=== PATIENT | female | born 1985 | race Caucasian/White ===

== ENCOUNTER → 2018-01-31 08:14 | Outpatient (CLI) | payer OTHER, SELFPAY ==
--- NOTE | 2018-01-31 08:20 | BI_ITS ---
MAMMOGRAPHY - BILATERAL DIAGNOSTIC REASON FOR EXAM: Female, 32 years old. Six-month history of a right upper quadrant breast pain. PERTINENT HISTORY: Non-contributory. TECHNIQUE: Digital bilateral breast irene (3D mammographic acquisition) in the CC and MLO projections. 2-D mediolateral oblique (MLO) and craniocaudad (CC) views of both breasts were obtained. CAD: Full Field Digital Mammography with Computer Added Detection was performed. COMPARISON: Comparison is made with prior examination dated November 13, 2013. FINDINGS: Breast Composition: There are scattered areas of fibroglandular density. There are no dominant masses or suspicious calcifications. The previously seen ill-defined density in the deep upper lateral aspect of the right breast is not seen at this time. No other significant abnormalities are identified. BI/DIAG MAMM W/CAD, BILAT IMPRESSION: Stable bilateral diagnostic mammogram. With the patient's history of a right breast pain, correlation with ultrasound of the upper outer quadrant of the right breast is recommended. ASSESSMENT CATEGORY: BIRADS Category 0: Incomplete. Need additional imaging evaluation. A letter regarding these results will be sent to the patient by the facility within 30 days. Approximately 10% of breast cancers are not detected by mammography. A normal mammogram should not delay biopsy of a clinically suspicious abnormality. Electronically Signed: Agapito Whitney MD at 9:24 EDT Tel [phone], Service support ,
--- NOTE | 2018-01-31 08:42 | US_ITS ---
STUDY: ULTRASOUND BREAST - RIGHT REASON FOR EXAM: Female, 32 years old. Pain in the right breast. TECHNIQUE: Axial and longitudinal images of the RIGHT breast were performed with a high resolution ultrasound transducer. COMPARISON: Comparison is made with prior ultrasound of the right breast dated December 02, 2014 and prior mammogram done earlier in the day. FINDINGS: RIGHT Breast: The upper outer quadrant of the right breast was examined by ultrasound. There is homogeneous fibroglandular tissue. No solid or cystic mass lesion is seen. US/Breast Limited Unilateral IMPRESSION: Unremarkable sonographic examination of the upper outer quadrant of the right breast. ASSESSMENT CATEGORY: BIRADS Category 1: Negative. A letter regarding these results will be sent to the patient by the facility within 30 days. Electronically Signed: Agapito Whitney MD at 10:21 EDT Tel [phone], Service support ,
== END ==
PROVIDERS: Family Provider Preventive Medicine Occupational Medicine; PCP Preventive Medicine Occupational Medicine; Visit Provider Obstetrics & Gynecology
DX: N64.4 Mastodynia (principal)
CPT/HCPCS: 76642; 77062; 77066; G0279

== ENCOUNTER 2018-10-20 16:36 | Emergency (ER) | payer OTHER, SELFPAY ==
[2018-10-20 16:37] VITALS: BP 176/99; PULSE 117; RESP 16; TEMP 37; O2SAT 97; BMI 50.1
--- NOTE | 2018-10-20 16:54 | CT_ITS ---
STUDY: CT ABDOMEN AND PELVIS WITH CONTRAST REASON FOR EXAM: Female, 33 years old. Left flank and lower quadrant pain RADIATION DOSAGE (If Supplied By Facility): CTDIvol = ( 18.73 ) mGy, DLP = ( 1433.68 ) mGycm TECHNIQUE: Transaxial images were obtained from the dome of the diaphragm to the symphysis pubis without oral contrast. 100ML IV Isovue 300 was administered. Sagittal and coronal images were reconstructed. Individualized dose optimization techniques were used for this CT. COMPARISON: None. FINDINGS: The visualized lung bases are unremarkable. The visualized portions of the heart are within normal limits. Liver is fatty infiltrated without mass or bile duct dilatation.. Gallbladder has been removed surgically. Mild splenomegaly measuring approximately 13 cm in length. Normal pancreas. Normal bilateral adrenal glands. Normal right kidney. Normal left kidney. Normal visualized stomach. Normal small intestine. Diverticular changes of the sigmoid colon in association with mild thickening of the gill and stranding in the fat consistent with acute diverticulitis. No evidence for peridiverticular abscess. The appendix is visualized and appears normal. Normal abdominal aorta. Normal inferior vena cava. Normal retroperitoneum. Normal urinary bladder. Left ovarian cyst measuring 4.1 x 4.6 cm Normal abdominal wall. Normal osseous structures. CT/Abdomen/Pelvis W IV Cont ONLY IMPRESSION: Findings consistent with acute diverticulitis of the sigmoid colon without evidence for peridiverticular abscess Incidental finding of left ovarian cyst measuring approximately 4.1 x 4.6 cm Nonspecific fatty infiltration of the liver and mild splenomegaly Electronically Signed: Rajiv Spence MD at 18:31 EDT , Service support ,
--- NOTE | 2018-10-20 16:56 | ED.VISSUMM ---
- ER Visit Summary Date of Service: 10/20/18 Chief Complaint: Diarrhea and left sided and lower quadrant crampy abdominal pain History of Present Illness: The patient is a 33 F past medical history of hypertension and prior cholecystectomy. For 2 days baby has had some intermittent diarrhea. About 2-3 episodes today. No melena. No fever. No dysuria. Has menstrual period 3 to 4 weeks ago. Does not believe she is . No vaginal bleeding or discharge. No abdominal trauma. States she has not had pain like this before. She awoke with it but not because of it this morning. Physical Examination: Young female no acute distress vital signs are stable afebrile. HEENT exam unremarkable. Moist weeks memories. Neck nontender no lymphadenopathy. Lungs clear to auscultation bilaterally. Heart regular rhythm rate about 110 no murmur. Chest wall nontender. Abdomen is soft. Nondistended. Normal bowel sounds. She is obese. She does have mild left-sided abdominal tenderness. There are no peritoneal signs. The epigastric region, right upper and right lower quadrants are completely nontender. There is no obvious hernias or masses. There is no obvious signs of obstruction. She does have bowel sounds. Patient is moving all 4 extremities. Her back is nontender. Neurologically she is awake and alert with no focal motor deficits. Test Results: CBC shows a white count 12.4. Hemoglobin 12. No bands. Electrolytes unremarkable normal creatinine and gap. UA negative. Serum test negative. CT abdomen pelvis with IV contrast only shows left sigmoid diverticulitis. Also a 4 cm left ovarian cyst. Otherwise no acute abnormality. Read by the radiologist and reviewed by me. I did go over all test results with the patient. Emergency Department Course and Treatment: Clinically patient's exam has only mild tenderness. Screening labs along with urinalysis and CT will be obtained with IV contrast. 1 L normal saline. Repeat exam she is doing well at 1842. We went over all of her test results. She will be given 1 dose of Cipro and p.o. Flagyl in the emergency department prior to discharge. Tylenol Motrin for pain at home. Treatment Plan: Cipro twice daily for 10 days. Flagyl 3 times daily for 10 days. Tylenol Motrin for pain. Follow-up with your doctor. Follow-up with your physical education aide for the left ovarian cyst. Disposition: Discharge Impression: Acute left-sided abdominal pain with diarrhea secondary to acute left sigmoid diverticulitis Incidental finding of left ovarian cyst 4 cm This note was generated with [employer] dictation software. It may contain incorrect words, spelling, and punctuation that were not noted in review of the chart prior to signing ED Disposition - Plan for ED Patient: Referrals: Bijan Chapin DO [Primary Care Provider] -
--- NOTE | 2018-10-20 16:59 | ED.DCSUM_ITS ---
- ER Visit Summary Date of Service: 10/20/18 Chief Complaint: Diarrhea and left sided and lower quadrant crampy abdominal pain History of Present Illness: The patient is a 33 F past medical history of hypertension and prior cholecystectomy. For 2 days baby has had some intermittent diarrhea. About 2-3 episodes today. No melena. No fever. No dysuria. Has menstrual period 3 to 4 weeks ago. Does not believe she is . No vaginal bleeding or discharge. No abdominal trauma. States she has not had pain like this before. She awoke with it but not because of it this morning. Physical Examination: Young female no acute distress vital signs are stable afebrile. HEENT exam unremarkable. Moist weeks memories. Neck nontender no lymphadenopathy. Lungs clear to auscultation bilaterally. Heart regular rhythm rate about 110 no murmur. Chest wall nontender. Abdomen is soft. Nondistended. Normal bowel sounds. She is obese. She does have mild left- sided abdominal tenderness. There are no peritoneal signs. The epigastric region, right upper and right lower quadrants are completely nontender. There is no obvious hernias or masses. There is no obvious signs of obstruction. She does have bowel sounds. Patient is moving all 4 extremities. Her back is nonte nder. Neurologically she is awake and alert with no focal motor deficits. Test Results: CBC shows a white count 12.4. Hemoglobin 12. No bands. Electrolytes unremarkable normal creatinine and gap. UA negative. Serum test negative. CT abdomen pelvis with IV contrast only shows left sigmoid diverticulitis. Also a 4 cm left ovarian cyst. Otherwise no acute abno rmality. Read by the radiologist and reviewed by me. I did go over all test results with the patient. Emergency Department Course and Treatment: Clinically patient's exam has only mild tenderness. Screening labs along with urinalysis and CT will be obtained with IV contrast. 1 L normal saline. Repeat exam she is doing well at 1842. We went over all of her test results. She will be given 1 dose of Cipro and p.o. Flagyl in the emergency department prior to discharge. Tylenol Motrin for pain at home. Treatment Plan: Cipro twice daily for 10 days. Flagyl 3 times daily for 10 days. Tylenol Motrin for pain. Follow-up with your doctor. Follow-up with your data security administrator for the left ovarian cyst. Disposition: Discharge Impression: Acute left-sided abdominal pain with diarrhea secondary to acute left sigmoid diverticulitis Incidental finding of left ovarian cyst 4 cm This note was generated with [employer] dictation software. It may contain incorrect words, spelling, and punctuation that were not noted in review of the chart prior to signing ED Disposition - Plan for ED Patient: Referrals: Bijan Chapin DO [Primary Care Provider] -
[2018-10-20 17:08] LABS: Mucous, Urine 0 SEEN /hpf (<or=2+)
[2018-10-20 17:16] LABS: Color, Urine Yellow (Yellow); Glucose, Dipstick Normal (Normal); Ketone-Dipstick Negative (Negative); Leukocyte Esterase-Dipstick Negative /ul (Negative); Nitrite-Dipstick Negative (Negative); Occult Blood-Urine 10 /ul (Negative); Protein-Dipstick Negative (Negative); Specific Gravity, Urine 1.015 (1.002-1.030); Urine Bilirubin Dipstick Negative (Negative); Urine Clarity Clear (Clear); Urine Urobilinogen Normal (Normal)
[2018-10-20 17:28] LABS: Absolute Lymphocyte Count 2.01 X10^3/ul (0.83-4.51); Absolute Neutrophil Count 9.3 X10^3/uL (2.0-7.7); Basophil# 0.03 X10^3/uL; Basophil% 0.2 % (0-1); Eosinophil# 0.14 X10^3/uL; Eosinophils% 1.1 % (0-5); Hematocrit 37.7 % (37-47); Hemoglobin 12.4 g/dl (12.0-15.0); Lymphocyte # 2.01 X10^3/ul (4.0); Lymphocyte % 16.2 % (19-41); Mean Corp Hgb Conc 32.9 g/gl (32-36); Mean Corpuscular Hgb 27.4 pg (27.0-32.0); Mean Corpuscular Volume 83.2 fL (81-99); Monocyte# 0.87 X10^3/uL; Neutrophil # 9.27 X10^3/uL (2.7-7.7); Neutrophil % 75.1 % (47-70); POSITIVE COUNT NO; POSITIVE DIFFERENTIAL NO; POSITIVE MORPHOLOGY NO; Platelet Count 277 K/mm3 (150-450); RBC Distribution Width CV 14.4 % (11.6-14.6); RBC Distribution Width SD 43.7 fl (35.1-43.9); Red Blood Count 4.53 M/mm3 (4.2-5.4); White Blood Count 12.4 K/mm3 (4.4-11.0)
[2018-10-20 17:29] LABS: Bacteria RARE /hpf (None Seen); Red Blood Cells-Urine 0-5 SEEN /hpf (0-5); Squamous Epithelial Cells - UA 5-10 SEEN /hpf (5-10); White Blood Cells 0-5 SEEN /hpf (0-5)
[2018-10-20 17:42] LABS: Anion Gap 5 (5-15); BUN 13 mg/dL (7-18); BUN/Creat Ratio 24.9 RATIO (10-20); Chloride 108 mmol/L (98-107); Creatinine, Serum 0.52 mg/dL (0.55-1.02); EST Glomerular Filtration Rate 142 mL/min (>60); Est Glom Filt Rate - Afr Amer 172 mL/min (>60); Estimated Creatinine Clearance 153.78 ml/min; Glucose 87 mg/dL (74-106); Potassium 3.6 mmol/L (3.5-5.1); Sodium Level 136 mmol/L (136-145)
[2018-10-20 17:56] LABS: Internal QC Validated? YES +Cl - CLEAR BKGD
[2018-10-20 17:57] LABS: Pregnancy, Serum, hCG Quali. NEGATIVE Negative
--- NOTE | 2018-10-20 18:58 | DCINST.ED_ITS ---
ED Disposition - Plan for ED Patient: Disposition: Home or Assisted Living Instructions: ED Diverticulitis Prescriptions: metroNIDAZOLE [Flagyl] 500 mg PO Q8H #30 tab Ciprofloxacin [Cipro] 500 mg PO BID #20 tab Referrals: Bijan Chapin DO [Primary Care Provider] - 1 Week Additional Instructions: Plenty of fluids and rest. You have diverticulitis of your sigmoid colon. That is an infection of the colon. Cipro 1 pill twice a day. Flagyl 1 pill 3 times a day. Until gone both for 10 days. Tylenol Motrin for pain. He also has an incidental finding of a 4 cm left ovarian cyst. You can follow- up with her administrative resident about that. At this time nothing specifically to do for that. Follow-up with your doctor next week to be reevaluated.
[2018-10-20 19:14] VITALS: RESP 18
[2018-10-20] MEDS: metroNIDAZOLE 500 MG Tablet PO (19:25)
[2018-10-20] MEDS: Ciprofloxacin 250 MG Tablet 500 MG PO (19:25)
[2018-10-20 19:26] VITALS: RESP 18
== END 2018-10-20 19:26 | disposition home or self-care (01) ==
PROVIDERS: Emergency Provider Emergency Medicine; Family Provider Preventive Medicine Occupational Medicine; PCP Preventive Medicine Occupational Medicine
DX: K57.32 Diverticulitis of large intestine without perforation or abscess without bleeding (principal); N83.202 Unspecified ovarian cyst, left side; E66.9 Obesity, unspecified; I10 Essential (primary) hypertension; Z90.49 Acquired absence of other specified parts of digestive tract
CPT/HCPCS: 36415; 74177; 80048; 81001; 84703; 85025; 99284; Q9967; A4216

== ENCOUNTER → 2019-06-26 15:56 | Outpatient (CLI) | payer OTHER, SELFPAY ==
[2019-06-26 16:52] LABS: Microalbumin,Random Urine 40.6 mg/L (NO RANGE EST.)
[2019-06-26 16:54] LABS: Anion Gap 5 (5-15); BUN 15 mg/dL (7-18); BUN/Creat Ratio 21.8 RATIO (10-20); Calcium,Total 9.4 mg/dL (8.5-10.1); Chloride 107 mmol/L (98-107); Creatinine, Serum 0.69 mg/dL (0.55-1.02); EST Glomerular Filtration Rate 103 mL/min (>60); Est Glom Filt Rate - Afr Amer 125 mL/min (>60); Glucose 83 mg/dL (74-106); Potassium 3.8 mmol/L (3.5-5.1); Sodium Level 138 mmol/L (136-145)
== END ==
PROVIDERS: PCP Preventive Medicine Occupational Medicine; Referring Provider Preventive Medicine Occupational Medicine; Visit Provider Preventive Medicine Occupational Medicine
DX: I10 Essential (primary) hypertension (principal)
CPT/HCPCS: 36415; 80048; 82043

== ENCOUNTER 2020-04-07 14:54 | Emergency (ER) | payer OTHER, SELFPAY ==
[2020-04-07 14:55] VITALS: BP 150/112; PULSE 128; RESP 16; TEMP 35.8; O2SAT 100; BMI 50.1
--- NOTE | 2020-04-07 15:14 | ED.DCSUM_ITS ---
History of Present Illness Chief Complaint: Abd Pain Informant: Patient Onset: Days - 3 days Context: Gradual Onset Timing: Waxes and wanes Current Severity: Mild Maximum Severity: Moderate Narrative: Patient presents with 3-day history of left lower quadrant pain. She had some mild diarrhea. She states symptoms feel similar to when she had diverticulitis in October of last year. She denies fever or chills. No urinary symptoms. - Past Medical History (1) Diverticulitis Status: Resolved (2) Hypertension Status: Chronic Past Medical History - Allergies and Home Meds Allergies/Adverse Reactions: Allergies hydrochlorothiazide Allergy (Verified 04/07/20 14:57) Unknown metoprolol Adverse Reaction (Verified 04/07/20 14:57) Other Primary Care Physician: Bijan Chapin DO [Primary Care Provider] - Prior records reviewed: Yes Lives: Spouse/ Significant Other Smoking Status: Never smoker Review of Systems General: Denies: Chills, Fever Eyes: Denies: Visual changes - bilaterally Cardiovascular: Denies: Chest pain Respiratory: Denies: Dyspnea, Cough Gastrointestinal: Reports: Abdominal pain, Diarrhea. Denies: Vomiting Musculoskeletal: Denies: Swelling, Extremity Pain Skin: Denies: Rash Hematologic: Denies: Easy bruising, Easy bleeding Allergy: Denies: Uticaria Physical Exam Vital Signs/Narrative: Vital Signs Temp Pulse Resp BP Pulse Ox 04/07/20 14:55 96.5 F L 128 H 16 150/112 H 100 Inital Vital Signs reviewed: Yes General: Well nourished, Well developed Head: Normocephalic ENT: Moist mucous membranes Neck: Supple Cardiovascular: Regular rate, Regular rhythm Respiratory: No distress, CTA bilaterally Abdomen: Soft, Tender - Mild tenderness in the left lower quadrant., Hypoactive bowel sounds. Negative for: Guarding, Rebound tenderness Skin: Normal color Neurological: Alert, Oriented x3 Psychological: Normal affect Diagnostic/Tx/Re-eval Impressions Abdomen/Pelvis CT 04/07/20 17:14 IMPRESSION: Findings consistent with mild acute diverticulitis of the sigmoid colon with no evidence for perforation or abscess. Electronically Signed: Romulo Mckinley MD at 17:44 EST , Service support , 04/07/20 17:14 Abdomen/Pelvis WITH Contrast [CT] Stat Laboratory Results 04/07/20 04/07/20 04/07/20 15:03 15:35 15:35 WBC 15.8 H RBC 4.50 Hgb 12.6 Hct 39.8 MCV 88.4 MCH 28.0 MCHC 31.7 L RDW Std Deviation 46.8 H RDW Coeff of Jj 14.6 Plt Count 309 MPV 11.0 Immature Gran % (Auto) 0.900 Neut % (Auto) 78.3 H Lymph % (Auto) 11.2 L Webster % (Auto) 8.6 Eos % (Auto) 0.4 Baso % (Auto) 0.6 Absolute Neuts (auto) 12.3 H Absolute Lymphs (auto) 1.77 Nucleated RBC % 0 Sodium 136 Potassium 3.7 Chloride 104 Carbon Dioxide 26.0 Anion Gap 6 BUN 6 L Creatinine 0.62 Estim Creat Clear Calc 127.76 Est GFR (MDRD) Af Amer 139 Est GFR (MDRD) Non-Af 115 BUN/Creatinine Ratio 9.6 L Glucose 96 Calcium 9.1 Serum , Qual Urine Color Yellow Urine Clarity Clear Urine pH 6.5 Ur Specific [place] 1.010 Urine Protein Negative Urine Glucose (UA) Normal Urine Ketones Negative Urine Occult Blood Negative Urine Nitrite Negative Urine Bilirubin Negative Urine Urobilinogen Normal Ur Leukocyte Esterase Negative Urine RBC 0 SEEN Urine WBC 0 SEEN Ur Squamous Epith Cells 0-5 SEEN Urine Bacteria 1+ Urine Mucus 0 SEEN 04/07/20 15:35 WBC RBC Hgb Hct MCV MCH MCHC RDW Std Deviation RDW Coeff of Jj Plt Count MPV Immature Gran % (Auto) Neut % (Auto) Lymph % (Auto) Webster % (Auto) Eos % (Auto) Baso % (Auto) Absolute Neuts (auto) Absolute Lymphs (auto) Nucleated RBC % Sodium Potassium Chloride Carbon Dioxide Anion Gap BUN Creatinine Estim Creat Clear Calc Est GFR (MDRD) Af Amer Est GFR (MDRD) Non-Af BUN/Creatinine Ratio Glucose Calcium Serum , Qual NEGATIVE Urine Color Urine Clarity Urine pH Ur Specific [place] Urine Protein Urine Glucose (UA) Urine Ketones Urine Occult Blood Urine Nitrite Urine Bilirubin Urine Urobilinogen Ur Leukocyte Esterase Urine RBC Urine WBC Ur Squamous Epith Cells Urine Bacteria Urine Mucus - Medical Decision Making Patient declined anything for pain while in the emergency room. Test results are discussed with her. We will treat her with a course of Augmentin for her diverticulitis. She is given return instructions. ED Disposition - Plan for ED Patient: Disposition: Home or Assisted Living Diagnosis: Diverticulitis Instructions: ED Diverticulitis Prescriptions: Amox/Clavulanate Tablet [Augmentin Tablet] 875 mg PO Q12H #20 tab Transmission Status: Pending to [id number] Referrals: Bijan Chapin DO [Primary Care Provider] - 1-2 Weeks
[2020-04-07 15:28] LABS: Color, Urine Yellow (Yellow); Glucose, Dipstick Normal (Normal); Ketone-Dipstick Negative (Negative); Leukocyte Esterase-Dipstick Negative /ul (Negative); Mucous, Urine 0 SEEN /hpf (<or=2+); Nitrite-Dipstick Negative (Negative); Occult Blood-Urine Negative /ul (Negative); Protein-Dipstick Negative (Negative); Red Blood Cells-Urine 0 SEEN /hpf (0-5); Urine Bilirubin Dipstick Negative (Negative); Urine Clarity Clear (Clear); Urine Urobilinogen Normal (Normal); Urine pH 6.5 (5.0 - 8.0); White Blood Cells 0 SEEN /hpf (0-5)
[2020-04-07 15:49] LABS: Absolute Lymphocyte Count 1.77 X10^3/uL (0.83-4.51); Absolute Neutrophil Count 12.3 X10^3/uL (2.0-7.7); Basophil# 0.09 X10^3/uL; Basophil% 0.6 % (0-1); Eosinophil# 0.06 X10^3/uL; Eosinophils% 0.4 % (0-5); Hematocrit 39.8 % (37-47); Hemoglobin 12.6 g/dL (12.0-15.0); Lymphocyte # 1.77 X10^3/ul (4.0); Lymphocyte % 11.2 % (19-41); Mean Corp Hgb Conc 31.7 g/dL (32-36); Mean Corpuscular Volume 88.4 fL (81-99); Monocyte# 1.36 X10^3/uL; Monocyte% 8.6 % (0-10); NRBC Flagged by Analyzer 0 % (0-5); Neutrophil # 12.33 X10^3/uL (2.7-7.7); Neutrophil % 78.3 % (47-70); Platelet Count 309 K/mm3 (150-450); RBC Distribution Width CV 14.6 % (11.6-14.6); RBC Distribution Width SD 46.8 fl (35.1-43.9); White Blood Count 15.8 K/mm3 (4.4-11.0)
[2020-04-07] MEDS: 0.9% Normal Saline 1,000 ML 150 ML IV (15:51)
[2020-04-07 15:52] LABS: Bacteria 1+ /hpf (None Seen); Squamous Epithelial Cells - UA 0-5 SEEN /hpf (5-10)
[2020-04-07 15:56] LABS: Internal QC Validated? YES +Cl - CLEAR BKGD; Pregnancy, Serum, hCG Quali. NEGATIVE Negative
[2020-04-07 16:02] LABS: Anion Gap 6 (5-15); BUN 6 mg/dL (7-18); BUN/Creat Ratio 9.6 RATIO (10-20); Calcium,Total 9.1 mg/dL (8.5-10.1); Chloride 104 mmol/L (98-107); Creatinine, Serum 0.62 mg/dL (0.55-1.02); EST Glomerular Filtration Rate 115 mL/min (>60); Est Glom Filt Rate - Afr Amer 139 mL/min (>60); Estimated Creatinine Clearance 127.76 ml/min; Glucose 96 mg/dL (74-106); Potassium 3.7 mmol/L (3.5-5.1); Sodium Level 136 mmol/L (136-145)
[2020-04-07 17:13] VITALS: BP 122/99; PULSE 103; RESP 18; O2SAT 99
--- NOTE | 2020-04-07 17:14 | CT_ITS ---
STUDY: CT ABDOMEN AND PELVIS WITH CONTRAST REASON FOR EXAM: Female, 34 years old. ABD PAIN WITH DIARRHEA SINCE TUESDAY. HX OF DIVERTICULITIS. NORIS RADIATION DOSAGE (If Supplied By Facility): CTDIvol = ( 18.68 ) mGy, DLP = ( 1384.02 ) mGycm TECHNIQUE: Transaxial images were obtained from the dome of the diaphragm to the symphysis pubis with oral contrast. Oral and amp; IV Gastrografin and amp; 100mL Isovue-300 was administered. Sagittal and coronal images were reconstructed. Individualized dose optimization techniques were used for this CT. COMPARISON: 10/20/2018. FINDINGS: The visualized lung bases are unremarkable. The visualized portions of the heart are within normal limits. There is decreased attenuation of the liver consistent with steatosis. There is hepatomegaly. There are surgical clips in the gallbladder fossa consistent with a prior cholecystectomy. Normal spleen. Normal pancreas. Normal bilateral adrenal glands. Normal right kidney. Normal left kidney. Normal visualized stomach. Normal small intestine. Normal caliber large bowel. Diverticulosis and thickened wall of the sigmoid colon with mild pericolonic fat stranding. Findings are consistent with mild acute diverticulitis. No evidence for perforation or abscess. The appendix is visualized and appears normal. Normal abdominal aorta. Normal inferior vena cava. Normal retroperitoneum. Normal urinary bladder. Normal visualized uterus. There is a small umbilical hernia containing fat. Normal osseous structures. CT/Abdomen/Pelvis WITH Contrast IMPRESSION: Findings consistent with mild acute diverticulitis of the sigmoid colon with no evidence for perforation or abscess. Electronically Signed: Romulo Mckinley MD at 17:44 EST , Service support ,
[2020-04-07] MEDS: Amox/Clavulanate 875 MG Tablet PO (18:06)
[2020-04-07 18:16] VITALS: BP 134/69; PULSE 72; RESP 16; O2SAT 98
== END 2020-04-07 18:17 | disposition home or self-care (01) ==
PROVIDERS: Emergency Provider Emergency Medicine; PCP Preventive Medicine Occupational Medicine
DX: K57.32 Diverticulitis of large intestine without perforation or abscess without bleeding (principal); I10 Essential (primary) hypertension; Z79.899 Other long term (current) drug therapy
CPT/HCPCS: 74177; 80048; 81001; 84703; 85025; 96360; 96361; 99282; J7030; Q9967

== ENCOUNTER → 2020-07-05 10:50 | Outpatient (CLI) | payer OTHER, SELFPAY ==
[2020-07-05 13:04] LABS: Anion Gap 8 (5-15); BUN 8 mg/dL (7-18); BUN/Creat Ratio 12.7 RATIO (10-20); Calcium,Total 9.3 mg/dL (8.5-10.1); Chloride 105 mmol/L (98-107); Creatinine, Serum 0.63 mg/dL (0.55-1.02); EST Glomerular Filtration Rate 114 mL/min (>60); Est Glom Filt Rate - Afr Amer 138 mL/min (>60); Glucose 81 mg/dL (74-106); Sodium Level 137 mmol/L (136-145)
[2020-07-05 14:13] LABS: Microalbumin,Random Urine 20.5 mg/L (NO RANGE EST.)
== END ==
PROVIDERS: PCP Preventive Medicine Occupational Medicine; Referring Provider Preventive Medicine Occupational Medicine; Visit Provider Preventive Medicine Occupational Medicine
DX: I10 Essential (primary) hypertension (principal)
CPT/HCPCS: 36415; 80048; 82043

== ENCOUNTER → 2020-12-04 07:46 | Outpatient (CLI) | payer OTHER, SELFPAY ==
[2020-12-04 08:47] LABS: Hematocrit 40.4 % (37-47); Hemoglobin 12.7 g/dL (12.0-15.0); Mean Corp Hgb Conc 31.4 g/dL (32-36); Mean Corpuscular Hgb 27.5 pg (27.0-32.0); Mean Corpuscular Volume 87.6 fL (81-99); Platelet Count 331 K/mm3 (150-450); RBC Distribution Width CV 13.6 % (11.6-14.6); RBC Distribution Width SD 43.4 fl (35.1-43.9); Red Blood Count 4.61 M/mm3 (4.2-5.4); White Blood Count 7.3 K/mm3 (4.4-11.0)
[2020-12-04 09:18] LABS: AST(SGOT) 22 U/L (15-37); Alanine Aminotransfer ALT/SGPT 38 U/L (13-56); Albumin, Serum 3.7 g/dL (3.2-5.0); Alkaline Phosphatase 100 U/L (45-117); Bilirubin, Direct 0.09 mg/dL (0.00-0.30); Globulin 4.2 g/dL (2.2-4.2); Lipase 81 U/L (73-393); Protein, Total 7.9 g/dL (6.4-8.2)
== END ==
PROVIDERS: PCP Preventive Medicine Occupational Medicine; Referring Provider Preventive Medicine Occupational Medicine; Visit Provider Preventive Medicine Occupational Medicine
DX: K21.9 Gastro-esophageal reflux disease without esophagitis (principal); R10.13 Epigastric pain; R10.12 Left upper quadrant pain
CPT/HCPCS: 36415; 80076; 83690; 85027

== ENCOUNTER → 2020-12-05 | Outpatient (CLI) | payer OTHER, SELFPAY ==
[2020-12-08 13:10] LABS: H. PYLORI STOOL AG Negative (Negative)
== END | disposition home or self-care (01) ==
LOC: LABSPEC 07:50
PROVIDERS: PCP Preventive Medicine Occupational Medicine; Referring Provider Preventive Medicine Occupational Medicine; Visit Provider Preventive Medicine Occupational Medicine
DX: K21.9 Gastro-esophageal reflux disease without esophagitis (principal); R10.12 Left upper quadrant pain

== ENCOUNTER → 2021-01-08 15:13 | Outpatient (CLI) | payer OTHER, SELFPAY ==
--- NOTE | 2021-01-08 15:15 | CT_ITS ---
STUDY: CT ABDOMEN WITH CONTRAST REASON FOR EXAM: Female, 35 years old. EPIGASTRIC PAIN RADIATION DOSAGE (If Supplied By Facility): CTDIvol = ( 28.46 ) mGy, DLP = ( 1105.57 ) mGycm TECHNIQUE: Transaxial images were obtained post I.V. administration of 100 mL Isovue-300, and with oral contrast. Sagittal and coronal images were reconstructed. Individualized dose optimization techniques were used for this CT. COMPARISON: 04/07/2020 FINDINGS: The visualized lung bases are unremarkable. The visualized portions of the heart are within normal limits. Normal liver. Normal gallbladder and extrahepatic biliary system. Normal spleen. Normal pancreas. Normal bilateral adrenal glands. Normal right kidney. Normal left kidney. Normal visualized stomach. Normal small intestine. There are multiple colonic diverticula consistent with diverticulosis. The appendix is visualized and appears normal. Normal abdominal aorta. Normal inferior vena cava. Normal retroperitoneum. There is a small umbilical hernia containing fat. Normal osseous structures. CT/Abdomen WITH IV Contrast IMPRESSION: 1. No acute inflammatory process or bowel obstruction. 2. Cholecystectomy. 3. Small fat-containing periumbilical hernia. Electronically Signed: Hasmukh Crouch MD ([place]) at 8:13 EDT , Service support ,
[2021-01-08 17:15] LABS: CREATININE FINGERSTICK 0.8 mg/dL (0.55-1.02); EGFR FINGERSTICK > 60.0000 mL/min (>60)
== END ==
PROVIDERS: PCP Preventive Medicine Occupational Medicine; Referring Provider Preventive Medicine Occupational Medicine; Visit Provider Preventive Medicine Occupational Medicine
DX: R10.13 Epigastric pain (principal)
CPT/HCPCS: 74160; Q9967

== ENCOUNTER 2021-02-16 06:31 | Day surgery (SDC) | payer OTHER, SELFPAY ==
[2021-02-16] VITALS (7 sets, daily range): BP systolic 118–160; BP diastolic 71–93; PULSE 79–111; RESP 16–18; TEMP 36.3–36.4; O2SAT 88–100; BMI 48.8
--- NOTE | 2021-02-16 | COLBX_PTH ---
PATIENT: AFIA LYNCH LOC: EN U#:[id number] AGE/SX: 35/F ROOM: RE02/16/[address]: Dr. Fortunato Foster DO : 1985 BED: DIS: 02/16/2021 SPEC #: [id number] RECD: 02/16/21 12:34 STATUS: AMANDA JAYNE #: [id number] NISHA: 02/16/21 00:[address]: Fortunato Foster DEPT: SURGICAL PATHOLOGY RECD BY: Elvis Damian ENTERED: 02/16/21 12:34 SP TYPE: COLON BX OTHR DR: Dr. Bijan Chapin DO Tissues: A - Duodenum, NOS B - Gastric mucous membrane C - Esophageal mucous membrane Procedures: Special Stain Group II Surgery Specimen Level IV Alcian Blue/PAS (control) HEADER OPER[place] [place] DIAGNOSIS: Diverticulitis, abdominal pain, dysphagia TISSUE SUBMITTED: A ? Duodenum biopsy, B ? Antrum biopsy for H. pylori and path, C ? Distal esophagus biopsy MICROSCOPIC DIAGNOSIS A. 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 B. Gastric antrum, biopsy: Mild chronic gastritis. See comment. C. Distal esophagus, biopsy: Gastroesophageal junctional mucosa with mild chronic inflammation. Focal goblet cell metaplasia present. No evidence of dysplasia. See comment. AM:jono 02/17/2021 COMMENT B. The results of immunohistochemistry for Helicobacter pylori will be reported separately ([id number]). C. Immunohistochemistry ([id number]) for P53 and Ki-67 will be performed and results will be reported separately. Alcian blue/PAS stain with matched control supports the above diagnosis. MICROSCOPIC DESCRIPTION Slides are reviewed. GROSS DESCRIPTION A - Received in fixative is one container labeled with the patient's name and designated duodenum biopsy. The specimen consists of multiple irregular fragments of light corbin soft tissue that in aggregate measure 0.7 x 0.5 x 0.1 cm. The specimen is totally submitted in one cassette. B - Received in fixative is one container labeled with the patient's name and designated antrum biopsy. The specimen consists of multiple irregular fragments of light corbin soft tissue that in aggregate measure 1 x 0.5 x 0.1 cm. The specimen is totally submitted in one cassette. C - Received in fixative is one container labeled with the patient's name and designated distal esophagus biopsy. The specimen consists of multiple irregular fragments of light corbin soft tissue that in aggregate measure 0.7 x 0.5 x 0.1 cm. The specimen is totally submitted in one cassette. / MOON:jono 02/16/21 TC:3 CPT: 36803 x3, [id number]
[2021-02-16 06:58] LABS: Internal QC Validated? YES +Cl - CLEAR BKGD; Pregnancy, Urine Negative Negative
[2021-02-16] MEDS: Lactated Ringers 1,000 ML 100 ML IV (07:07)
--- NOTE | 2021-02-16 07:30 | HP.PCM_ITS ---
History and Physical Date of Admission: 02/16/21 [facility] [id number] [place] [address] OFFICE VISITDate of Service: 01/23/21 MR#:[id number]:[id number]: AFIA LYNCH NRep #:[id number]:[id number] Provider:Fortunato Friend, DOAge/Sex: 35/F Location:[facility] [place].IStatus:Signed Intake Vital Signs 01/23/21 10:14 01/23/21 10:16 Height 5 ft 7 in Weight: 326 lb 8 oz BMI 50.1 51.1 Intake Visit Reasons: ULCER Chief Complaint: Abodminal symptoms as listed Is patient in pain?: No Allergies hydrochlorothiazide Allergy (Verified 01/23/21 10:24) Unknown metoprolol Adverse Reaction (Verified 01/23/21 10:24) Other Medications hydrocodone-acetaminophen 1 - 2 tab PO Q4H PRN PRN #12 tablet 05/03/14 [Rx Confirmed 10/20/18] ondansetron 4 mg PO Q8H PRN PRN #10 tab 05/03/14 [Rx Confirmed 10/20/18] ciprofloxacin HCl 500 mg PO BID #20 tab 10/20/18 [Rx] lisinopril 40 mg PO DAILY 10/20/18 [History Confirmed 01/23/21] lorazepam 1 mg PO BID PRN PRN 10/20/18 [History Confirmed 01/23/21] metronidazole 500 mg PO Q8H #30 tab 10/20/18 [Rx] amoxicillin-pot clavulanate 875 mg PO Q12H #20 tab 04/07/20 [Rx] famotidine 40 mg tablet 40 mg PO BID 01/23/21 [History Confirmed 01/23/21] sucralfate 1 gram tablet 1 g PO QACHS 01/23/21 [History Confirmed 01/23/21] Post menopausal: No Patient : No Nurse's Note: GI symptoms includes diarrhea (no blood or blackness noted), abd pain, bloating, heartburn, difficulty swallowing. Symptoms started this November and have improved with the famotidine and sucralfate. Difficulty swallowing: it feels luike something is caught in the back of her throat and occurs in the evening a couple times a week. PCP screened for H.Pylori (negative), Rx'd famotidine and sucralfate to take when symptoms flare. Has tried omeprazole in the past with little effect and caused abdominal discomfort and increased diarrhea. scan performed two weeks ago of abdomen and returned as normal. Has a history of diverticulitis and diverticulosis. Had a colonoscopy two years ago. Has concerns r/t mother having pancreatic cancer. [facility] Medical History (Updated 01/23/21 @ 11:[address] Bucio Friend, DO) Abdominal pain Social History Smoking Status: Never smoker HPI HPI Chief Complaint: Abodminal symptoms as listed Details: AFIA LYNCH, is a 35 F who presents to the office today for GI symptoms includes diarrhea (no blood or blackness noted), abd pain, bloating, heartburn, difficulty swallowing. Symptoms started this November and have improved with the famotidine and sucralfate. She does also admit on occasion she does have problems with difficulty swallowing: Primarily, it feels luike something is caught in the back of her throat and occurs in the evening a couple times a week. PCP screened for H.Pylori (negative), Rx'd famotidine and sucralfate to take when symptoms flare. Has tried omeprazole in the past with little effect and caused abdominal discomfort and increased diarrhea. CT scan performed two weeks ago of abdomen and returned as normal. Has a history of diverticulitis and diverticulosis. Had a colonoscopy two years ago. Has concerns r/t mother having pancreatic cancer. ROS Const Constitutional: Positive for fatigue Eyes Eyes: No change in vision ENT ENT: Positive for nasal congestion, difficulty swallowing and sore throat; No abnormal hearing, tongue swelling or throat swelling Resp Respiratory: No cough or shortness of breath Cardio Cardiology: No chest pain at rest, chest pain with exertion, shortness of breath or dyspnea on exertion Gastro GI: Positive for abdominal pain, bloating, diarrhea, heartburn and difficulty swallowing Genitourinary-Female: No difficulty urinating or burning urination Musc Musculoskeletal: Positive for back pain Skin Skin: No hair loss in leg, yellowing of the eye, itchy eyes, rash, skin ulcer or skin swelling Neuro Neurology: No abnormal hearing, abnormal movements, confusion, unsteady gait/balance or memory loss Psych Psychiatric: Positive for anxiety, No confusion, Positive for depression, No memory loss, Positive for hyperactivity and Positive for obsessions/compulsions Endo Endocrine: Positive for fatigue Aller/Imm Allergy/Immunologic: No itchy eyes, throat swelling or tongue swelling Jimbo/Lymp Hematologic/Lymphatic: No easy bleeding, easy bruising or enlarged lymph nodes Exam Const General: cooperative and comfortable Nutritional Appearance: average body habitus and well nourished [facility] Head: normal to inspection Ears: hearing grossly normal bilaterally Nose: external nose normal Face and sinus: normal facial exam Mouth: oral mucosae normal Throat: posterior oropharynx normal Eyes General: appearance normal, both eyes and all related structures Neck Neck: normal visual inspection Chest Chest palpation & inspection: normal inspection of the chest and normal palpation of entire chest wall Resp Effort & Inspection: normal respiratory effort Auscultation: Bilateral: Clear to Auscultation Cardio Palpation: normal PMI Rate: regular rate Rhythm: regular rhythm GI Inspection: normal to inspection Auscultation: normal bowel sounds Percussion: normal to percussion Palpation: no hepatosplenomegaly Skin General: no rashes or lesions noted Neuro General: patient alert Extrem General: normal to inspection Psych Affect: normal affect Quality Reporting Tobacco Screening ([facility] 138) Smoking Status: Never smoker Assessment and Plan Assessment and Plan (1) Diverticulitis: Status: Resolved Plan - Dr. Bucio Friend, DO: She has had two episodes of diverticulitis that she knows of. She did respond to antibiotic therapy. She has changed her diet and has cut out a lot of foods that were disagreeing with her. She does not eat any corn products. She does intermittently get constipated. I expressed to her that reason that she gets acute diverticulitis is when she would develop constipation. She has taken a digestive enzyme and a probiotic. I suggested to her that she start an aloe- based regimen. Aloe is a very good natural way that will not harm the colon to stimulate bowel movements. She would take 4-hour pills in the morning and four aloe pills in the evening if needed. (2) Abdominal pain: Status: Acute Plan - Dr. Bucio Friend, DO: She did respond to Carafate and famotidine based therapy. That concerns me for duodenal problems such as duodenitis or duodenal ulcer. Also she was on a PPI when she had her H. pylori test which can give you a false negative test. We will perform a CLOtest and biopsies of the stomach and proximal small bowel for confirmation. (3) Dysphagia: Status: Acute Plan - Dr. Bucio Friend, DO: While she undergoes EGD will evaluate the upper GI tract for eosinophilic disease, gastroesophageal disease, strictures, or rings or hiatal hernia. Coding Level of Care Code Off vis,new,level 4 Diagnoses Diverticulitis K57.92 Abdominal pain R10.9 Dysphagia R13.10 This is an updated note from an office visit. There are no changes since she was seen in office.
--- NOTE | 2021-02-16 07:30 | IMM_PTH ---
PATIENT: AFIA LYNCH LOC: EN U#:[id number] AGE/SX: 35/F ROOM: RE02/16/[address]: Dr. Fortunato Foster DO : 1985 BED: DIS: 02/16/2021 SPEC #: [id number] RECD: 02/16/21 13:30 STATUS: AMANDA REEnrique #: [id number] NISHA: 02/16/21 07:[address]: Fortunato Foster DEPT: IMMUNOHISTOCHEMISTRY RECD BY: Rachell Cano ENTERED: 02/16/21 13:31 SP TYPE: IMMUNO OTHR DR: Dr. Bijan Chapin DO Tissues: B - Stomach, NOS C - Esophageal mucous membrane Procedures: H Pylori (initial) P53 (initial) KI-67 (add) PHYSICIAN & INSTITUTION [place] [id number] SPECIMEN INFORMATION: Tissue Source: B ? Antrum biopsy, C ? Distal esophagus biopsy Clinical Info: Diverticulitis, abdominal pain, dysphagia Specimen Number: [id number] B & C CPT code: 68493 x2, 26086 METHODOLOGY: Deparaffinized sections of prefer/formalin-fixed tissue or PAP/DQ stained slides are incubated with monoclonal/polyclonal antibodies/oligonucleotide probes. Localization is made via biotin free immunoperoxidase method. Appropriate controls are performed and reacted as expected. Results on target cell population are indicated in the following table: RESULTS: ANTIBODY / CLONE RESULT Block B H Pylori (polyclonal) negative Block C P53 (DO-7) negative Ki-67 (30-9) negative These tests were developed and their performance characteristics determined by [facility]. They may not have been cleared or approved by the U.S. Food and Drug Administration. The FDA has determined that such clearance or approval is not necessary. The above immunohistochemical/dualISH markers are ordered and reviewed by the pathologist. INTERPRETATION: B. Antrum biopsy: Negative for Helicobacter pylori organisms. C. Distal esophagus, biopsy: Negative for dysplasia. AM:jono 02/18/2021
--- NOTE | 2021-02-16 07:54 | OP.EGD_ITS ---
Patient Name: Edna Wan Procedure Date: 02/16/2021 7:30 AM Date of : 1985 Age: 35 Procedure: Upper GI endoscopy Indications: Epigastric abdominal pain Providers: Fortunato Foster DO Medicines: Propofol per Anesthesia Patient Profile: This is a 35 year old female. Refer to note in patient chart for documentation of history and physical. Patient has symptoms of acute epigastric abdominal pain. The symptoms first began October. Complications: No immediate complications. Procedure: Pre-Anesthesia Assessment: - Prior to the procedure, a History and Physical was performed, and patient medications and allergies were reviewed. The patient is competent. The risks and benefits of the procedure and the sedation options and risks were discussed with the patient. All questions were answered and informed consent was obtained. Patient identification and proposed procedure were verified by the physician in the pre-procedure area. Mental Status Examination: alert and oriented. Airway Examination: normal oropharyngeal airway and neck mobility. Respiratory Examination: clear to auscultation. CV Examination: normal. Prophylactic Antibiotics: The patient does not require prophylactic antibiotics. Prior Anticoagulants: The patient has taken no previous anticoagulant or antiplatelet agents. ASA Grade Assessment: II - A patient with mild systemic disease. After reviewing the risks and benefits, the patient was deemed in satisfactory condition to undergo the procedure. The anesthesia plan was to use moderate sedation / analgesia (conscious sedation). Immediately prior to administration of medications, the patient was re-assessed for adequacy to receive sedatives. The heart rate, respiratory rate, oxygen saturations, blood pressure, adequacy of pulmonary ventilation, and response to care were monitored throughout the procedure. The physical status of the patient was re-assessed after the procedure. After obtaining informed consent, the endoscope was passed under direct vision. Throughout the procedure, the patient's blood pressure, pulse, and oxygen saturations were monitored continuously. The Endoscope was introduced through the mouth, and advanced to the second part of duodenum. The upper GI endoscopy was accomplished without difficulty. The patient tolerated the procedure well. Moderate Sedation: Moderate (conscious) sedation was administered by the endoscopy nurse and supervised by the endoscopist. The following parameters were monitored: oxygen saturation, heart rate, blood pressure, and response to care. Total physician intraservice time was 15 minutes. Scope In: 7:42:31 AM Scope Out: 7:48:56 AM Total Procedure Duration Time 0 hours 6 minutes 25 seconds Findings: LA Grade A (one or more mucosal breaks less than 5 mm, not extending between tops of 2 mucosal folds) esophagitis with no bleeding was found 34 to 35 cm from the incisors. Biopsies were taken with a cold forceps for histology. Verification of patient identification for the specimen was done. Estimated blood loss was minimal. Patchy moderately erythematous mucosa without bleeding was found in the stomach. Biopsies were taken with a cold forceps for histology. Verification of patient identification for the specimen was done. Estimated blood loss was minimal. A small hiatal hernia was present. Scattered moderate inflammation characterized by erosions was found in the first portion of the duodenum. Biopsies were taken with a cold forceps for histology. Verification of patient identification for the specimen was done. Estimated blood loss was minimal. Impression: - LA Grade A reflux esophagitis. Biopsied. - Erythematous mucosa in the stomach. Biopsied. - Small hiatal hernia. - Duodenitis. Biopsied. Recommendation: - Discharge patient to home. - Resume previous diet. - Continue present medications. - Await pathology results. - Repeat upper endoscopy in 1 year for surveillance. - Return to GI office in 1 week. Procedure Code(s): --- Professional --- 94176, Esophagogastroduodenoscopy, flexible, transoral; with biopsy, single or multiple G0500, Moderate sedation services provided by the same physician or other qualified health daycare manager performing a gastrointestinal endoscopic service that sedation supports, requiring the presence of an independent trained observer to assist in the monitoring of the patient's level of consciousness and physiological status; initial 15 minutes of intra-service time; patient age 5 years or older (additional time may be reported with 76307, as appropriate) CPT copyright 2017 [employer]. All rights reserved. The codes documented in this report are preliminary and upon mig welder review may be revised to meet current compliance requirements. Fortunato Foster DO 02/16/2021 7:53:56 AM This report has been signed electronically. Number of Addenda: 1 Note Initiated On: 02/16/2021 7:30 AM Addendum Number: 1 Addendum Date: 01/07/2022 4:27:58 PM MAC was used instead of moderate sedation for this patient. Fortunato Foster DO 01/07/2022 4:28:10 PM This report has been signed electronically.
--- NOTE | 2021-02-16 07:55 | OP.CCLET_ITS ---
01/07/2022 Bijan Chapin [address] [place] [address] Re : Upper GI endoscopy procedure for Edna Wan Dear Dr. Chapin This procedure was performed on Tuesday, February 16, 2021. My impressions and recommendations are as follows: Impressions : - LA Grade A reflux esophagitis. Biopsied. - Erythematous mucosa in the stomach. Biopsied. - Small hiatal hernia. - Duodenitis. Biopsied. Recommendations : - Discharge patient to home. - Resume previous diet. - Continue present medications. - Await pathology results. - Repeat upper endoscopy in 1 year for surveillance. - Return to GI office in 1 week. My findings are described in the full procedure note, which is enclosed. If I can be of further assistance, please feel free to contact me at . Sincerely, Fortunato Foster, 02/16/2021 7:53:56 AM This report has been signed electronically.
== END 2021-02-16 08:36 ==
LOC: EN 06:32 → AC 06:33
PROVIDERS: Anesthesiology; PCP Preventive Medicine Occupational Medicine; Referring Provider Preventive Medicine Occupational Medicine; Visit Provider Internal Medicine Gastroenterology
PROC: 0DJ08ZZ Inspection of Upper Intestinal Tract, Via Natural or Artificial Opening Endoscopic (ICD-10-PCS; CPT 43235; principal; 2021-02-16 07:25)
DX: K29.50 Unspecified chronic gastritis without bleeding (principal); K22.70 Barrett's esophagus without dysplasia; K21.00 Gastro-esophageal reflux disease with esophagitis, without bleeding; K29.80 Duodenitis without bleeding; K44.9 Diaphragmatic hernia without obstruction or gangrene; I10 Essential (primary) hypertension; F41.9 Anxiety disorder, unspecified; F32.A Depression, unspecified; G43.909 Migraine, unspecified, not intractable, without status migrainosus; Z87.19 Personal history of other diseases of the digestive system; Z79.899 Other long term (current) drug therapy
CPT/HCPCS: 43239; 81025; 88305; 88313; 88341; 88342; J7120; J2405

== ENCOUNTER 2021-03-29 20:35 | Emergency (ER) | payer OTHER, SELFPAY ==
[2021-03-29 20:36] VITALS: BP 150/91; PULSE 105; RESP 18; TEMP 36.2; O2SAT 99; BMI 48.3
--- NOTE | 2021-03-29 21:07 | CT_ITS ---
STUDY: CT ABDOMEN AND PELVIS WITHOUT CONTRAST REASON FOR EXAM: Female, 35 years old. Flank pain RADIATION DOSAGE (If Supplied By Facility): CTDIvol = ( 22.25 ) mGy, DLP = ( 1256.47 ) mGycm TECHNIQUE: Transaxial images were obtained from the dome of the diaphragm to the symphysis pubis without oral contrast, and without intravenous contrast. Sagittal and coronal images were reconstructed. Individualized dose optimization techniques were used for this CT. COMPARISON: 01/08/2021 FINDINGS: The visualized lung bases are unremarkable. The visualized portions of the heart are within normal limits. Normal liver. There are surgical clips in the gallbladder fossa consistent with a prior cholecystectomy. Normal spleen. Normal pancreas. Normal bilateral adrenal glands. Normal right kidney. Normal left kidney. Normal visualized stomach. Normal small intestine. Scattered sigmoid diverticulosis, no CT evidence of acute diverticulitis. The appendix is visualized and appears normal. Findings seen on coronal reconstructed image 63 Normal abdominal aorta. Normal inferior vena cava. Normal retroperitoneum. Normal urinary bladder. Normal visualized uterus. Normal abdominal wall. Normal osseous structures. CT/Abdomen/Pelvis without Cont IMPRESSION: No suspicious solid organ abnormality Scattered sigmoid diverticulosis, no CT evidence of acute diverticulitis No free intraperitoneal fluid, air, or suspicious adenopathy Electronically Signed: Raoul Ventura MD at 22:28 EST , Service support ,
--- NOTE | 2021-03-29 21:15 | EX.ED.DYSGE1 ---
HPI History of Present Illness Chief Complaint: Abd Pain Narrative Narrative: Patient presents to the emergency department with left lower quadrant abdominal pain for the past 2 hours. It is quite intense. She does have a history of diverticulitis. She has no back pain no diarrhea or constipation. She has no dysuria. She is denying . She has no vaginal bleeding or discharge. [facility] Medical History Abdominal pain Anxiety Depression Gastric reflux History of diverticulitis Hypertension Migraine headache Non-smoker Wears glasses Home Medications lisinopril 40 mg PO DAILY 10/20/18 [History Last Taken 02/16/21] lorazepam 1 mg PO BID PRN PRN 10/20/18 [History Last Taken Unknown] famotidine 40 mg tablet 40 mg PO PRN PRN 01/23/21 [History Last Taken Unknown] sucralfate 1 gram tablet 1 g PO QACHS PRN 01/23/21 [History Last Taken Unknown] pantoprazole 20 mg tablet,delayed release See Rx Instructions .ROUTE .COMPLEX #30 tab 03/18/21 [Rx Last Taken Unknown] dicyclomine 20 mg PO BID #10 tab 03/29/21 [Rx Last Taken Unknown] Allergy/AdvReac Type Severity Reaction Status Date / Time hydrochlorothiazide Allergy Unknown Verified 03/29/21 20:40 metoprolol AdvReac Other Verified 03/29/21 20:40 Surgical History History of tonsillectomy and adenoidectomy Hx laparoscopic cholecystectomy Social History Smoking Status: Never smoker ROS ROS ED ROS Narrative Social history: Noncontributory Review of systems: All systems negative except as indicated General: No fever Eyes: No visual changes ENT: No upper airway congestion, normal voice Neck: No neck pain Cardiovascular: No chest pain Respiratory: No shortness of breath or cough Gastrointestinal: Left lower abdominal pain as in HPI Genitourinary: No dysuria Musculoskeletal: Denies myalgias no difficulty with ambulation Skin: No rash Neurological: No memory loss, confusion or any focal weakness Psych: No recent behavioral changes Hematologic: No easy bleeding or easy bruising EXAM Physical Exam Narrative Exam Narrative: Physical exam General: Patient appears uncomfortable. Head: Normocephalic, Atraumatic Eyes: Conjunctiva not pale ENT: Moist mucous membranes Neck: Supple, Nontender, No lymphadenopathy Cardiovascular: Regular rate, Regular rhythm Respiratory: No distress, CTA bilaterally Abdomen: Soft, there is left lower quadrant abdominal pain without guarding or rebound. No right-sided abdominal pain. No CVA pain. Back: Nontender, Normal Inspection. Negative for: CVA tenderness Extremities: Nontender, No edema Skin: Normal color, No rash Neurological: Alert, Normal Strength, Normal Sensation Psychological: Normal affect Const Vital Signs: 03/29/21 20:36 Temperature 97.1 F L Temperature Source Temporal Pulse Rate 105 H Respiratory Rate 18 Blood Pressure 150/91 H Blood Pressure Mean 110 Pulse Ox 99 Oxygen Delivery Method Room Air MDM MDM MDM Narrative Medical decision making narrative: Patient has an unremarkable work-up. She likely has some spasm. There is no evidence of kidney stone or diverticulitis she does not have a UTI she appears well she improved I will discharge in stable condition with Bentyl. Lab Data Labs: Laboratory Results - last 24 hr 03/29/21 03/29/21 03/29/21 21:20 21:20 21:40 WBC 9.4 RBC 4.31 Hgb 12.3 Hct 36.8 L MCV 85.4 MCH 28.5 MCHC 33.4 RDW Std Deviation 42.9 RDW Coeff of Jj 13.8 Plt Count 285 MPV 11.0 Immature Gran % (Auto) 0.500 Neut % (Auto) 71.0 H Lymph % (Auto) 18.5 L [place] % (Auto) 8.5 Eos % (Auto) 1.1 Baso % (Auto) 0.4 Absolute Neuts (auto) 6.7 Absolute Lymphs (auto) 1.73 Nucleated RBC % 0 Sodium 138 Potassium 3.7 Chloride 106 Carbon Dioxide 26.0 Anion Gap 6 BUN 11 Creatinine 0.66 Estim Creat Clear Calc 118.87 Est GFR (MDRD) Af Amer 130 Est GFR (MDRD) Non-Af 107 BUN/Creatinine Ratio 16.7 Glucose 81 Calcium 9.3 Total Bilirubin 0.50 AST 17 ALT 32 Alkaline Phosphatase 101 Total Protein 8.0 Albumin 3.6 Globulin 4.4 H Albumin/Globulin Ratio 0.8 L Lipase 123 Urine Color Yellow Urine Clarity Sl. Cloudy Urine pH 7.0 Ur Specific [place] 1.010 Urine Protein Negative Urine Glucose (UA) Normal Urine Ketones 5 H Urine Occult Blood 25 H Urine Nitrite Negative Urine Bilirubin Negative Urine Urobilinogen 1 H Ur Leukocyte Esterase Negative Urine RBC 0 SEEN Urine WBC 0 SEEN Ur Squamous Epith Cells 0-5 SEEN Urine Bacteria 1+ Urine Mucus 0 SEEN Radiography Diagnostic Testing: Clinical Impression(s) from Imaging Studies Abdomen/Pelvis CT 03/29/21 21:07 IMPRESSION: No suspicious solid organ abnormality Scattered sigmoid diverticulosis, no CT evidence of acute diverticulitis No free intraperitoneal fluid, air, or suspicious adenopathy Electronically Signed: Raoul Ventura MD at 22:28 EST , Service support , Discharge Plan Triage Chief Complaint: Abd Pain ED Provider: Michele Epperson Dx/Rx/DC Orders Clinical Impression: Abdominal pain Instructions: Abdominal Pain Prescriptions: New dicyclomine 20 mg tablet 20 mg PO BID Qty: 10 RF: 0 No Action famotidine 40 mg tablet 40 mg PO PRN PRN (Reason: GERD) RF: 0 sucralfate 1 gram tablet 1 g PO QACHS PRN (Reason: GERD) RF: 0 lorazepam 1 MG tablet 1 mg PO BID PRN PRN (Reason: Anxiety) RF: 0 lisinopril 40 MG tablet 40 mg PO DAILY RF: 0 pantoprazole 20 mg tablet,delayed release (DR/EC) See Rx Instructions .ROUTE .COMPLEX Qty: 30 RF: 1 Primary Care Provider: Bijan Chapin Referrals: Bijan Chapin DO [Primary Care Provider] - 3-5 Days Disposition Disposition: Home, Self Care
[2021-03-29 21:23] LABS: Absolute Lymphocyte Count 1.73 X10^3/uL (0.83-4.51); Absolute Neutrophil Count 6.7 X10^3/uL (2.0-7.7); Basophil# 0.04 X10^3/uL; Basophil% 0.4 % (0-1); Eosinophils% 1.1 % (0-5); Hematocrit 36.8 % (37-47); Hemoglobin 12.3 g/dL (12.0-15.0); Lymphocyte # 1.73 X10^3/ul (0.83-4.51); Lymphocyte % 18.5 % (19-41); Mean Corp Hgb Conc 33.4 g/dL (32-36); Mean Corpuscular Hgb 28.5 pg (27.0-32.0); Mean Corpuscular Volume 85.4 fL (81-99); Monocyte% 8.5 % (0-10); NRBC Flagged by Analyzer 0 % (0-5); Neutrophil # 6.65 X10^3/uL (2.7-7.7); Platelet Count 285 K/mm3 (150-450); RBC Distribution Width CV 13.8 % (11.6-14.6); RBC Distribution Width SD 42.9 fl (35.1-43.9); Red Blood Count 4.31 M/mm3 (4.2-5.4); White Blood Count 9.4 K/mm3 (4.4-11.0)
[2021-03-29] MEDS: 0.9% Normal Saline 1,000 ML 1000 ML IV (21:34)
[2021-03-29] MEDS: Morphine 4 MG/ML Syringe IV (21:35)
[2021-03-29 21:40] LABS: ALB/GLOB Ratio 0.8 RATIO (0.9-2.4); AST(SGOT) 17 U/L (15-37); Alanine Aminotransfer ALT/SGPT 32 U/L (13-56); Albumin, Serum 3.6 g/dL (3.2-5.0); Alkaline Phosphatase 101 U/L (45-117); Anion Gap 6 (5-15); BUN 11 mg/dL (7-18); BUN/Creat Ratio 16.7 RATIO (10-20); Calcium,Total 9.3 mg/dL (8.5-10.1); Chloride 106 mmol/L (98-107); Creatinine, Serum 0.66 mg/dL (0.55-1.02); EST Glomerular Filtration Rate 107 mL/min (>60); Est Glom Filt Rate - Afr Amer 130 mL/min (>60); Estimated Creatinine Clearance 118.87 ml/min; Globulin 4.4 g/dL (2.2-4.2); Glucose 81 mg/dL (74-106); Lipase 123 U/L (73-393); Potassium 3.7 mmol/L (3.5-5.1); Sodium Level 138 mmol/L (136-145)
[2021-03-29 21:47] LABS: Mucous, Urine 0 SEEN /hpf (<or=2+); Red Blood Cells-Urine 0 SEEN /hpf (0-5); White Blood Cells 0 SEEN /hpf (0-5)
[2021-03-29 21:51] LABS: Color, Urine Yellow (Yellow); Glucose, Dipstick Normal (Normal); Ketone-Dipstick 5 mg/dl (Negative); Leukocyte Esterase-Dipstick Negative /ul (Negative); Nitrite-Dipstick Negative (Negative); Occult Blood-Urine 25 /ul (Negative); Protein-Dipstick Negative (Negative); Urine Bilirubin Dipstick Negative (Negative); Urine Clarity Sl. Cloudy (Clear); Urine Urobilinogen 1 mg/dl (Normal)
[2021-03-29 22:08] LABS: Bacteria 1+ /hpf (None Seen); Squamous Epithelial Cells - UA 0-5 SEEN /hpf (5-10)
[2021-03-29] MEDS: Dicyclomine 20 MG/2 ML Vial IM (23:02)
[2021-03-29 23:06] VITALS: BP 138/84; PULSE 84; RESP 18; O2SAT 99
== END 2021-03-29 23:23 | disposition home or self-care (01) ==
PROVIDERS: Emergency Provider Emergency Medicine; PCP Preventive Medicine Occupational Medicine
DX: R10.32 Left lower quadrant pain (principal); I10 Essential (primary) hypertension; F32.A Depression, unspecified; F41.9 Anxiety disorder, unspecified; K21.9 Gastro-esophageal reflux disease without esophagitis; G43.909 Migraine, unspecified, not intractable, without status migrainosus; Z87.19 Personal history of other diseases of the digestive system; Z79.899 Other long term (current) drug therapy
CPT/HCPCS: 74176; 80053; 81001; 83690; 85025; 96361; 96372; 96374; 96375; 99283; J7030; A4216; J2405

== ENCOUNTER 2021-07-04 07:59 | Outpatient (CLI) | payer OTHER, SELFPAY ==
[2021-07-04 09:03] LABS: Microalbumin,Random Urine 9.8 mg/L (NO RANGE EST.)
[2021-07-04 09:26] LABS: Anion Gap 4 (5-15); BUN 13 mg/dL (7-18); BUN/Creat Ratio 20.6 RATIO (10-20); Calcium,Total 9.5 mg/dL (8.5-10.1); Chloride 109 mmol/L (98-107); Creatinine, Serum 0.63 mg/dL (0.55-1.02); EST Glomerular Filtration Rate 113 mL/min (>60); Est Glom Filt Rate - Afr Amer 136 mL/min (>60); Glucose 92 mg/dL (74-106); Potassium 4.2 mmol/L (3.5-5.1); Sodium Level 138 mmol/L (136-145); Thyroid Stim Hormone (TSH) 0.84 uIU/mL (0.358-3.74)
== END 2021-07-04 23:59 | disposition home or self-care (01) ==
PROVIDERS: PCP Preventive Medicine Occupational Medicine; Referring Provider Preventive Medicine Occupational Medicine; Visit Provider Preventive Medicine Occupational Medicine
DX: I10 Essential (primary) hypertension (principal)
CPT/HCPCS: 36415; 80048; 82043; 84443

== ENCOUNTER 2022-03-01 05:55 | Day surgery (SDC) | payer OTHER, SELFPAY ==
--- NOTE | 2022-03-01 | ESO_PTH ---
PATIENT: AFIA LYNCH LOC: EN U#:[id number] AGE/SX: 36/F ROOM: RE03/01/[address]: Dr. Fortunato Foster DO : 1985 BED: DIS: 03/01/2022 SPEC #: [id number] RECD: 03/01/22 10:40 STATUS: AMANDA REEnrique #: [id number] NISHA: 03/01/22 00:[address]: Fortunato Foster DEPT: SURGICAL PATHOLOGY RECD BY: Elvis Damian ENTERED: 03/01/22 10:41 SP TYPE: KAVON GONZALES DR: Dr. Bijan Chapin DO Tissues: Esophagus, NOS Procedures: Special Stain Group II Surgery Specimen Level IV Alcian Blue/PAS (control) HEADER OPERATION: [place] [place] biopsy PRE-OP DIAGNOSIS: GERD, Glover?s esophagus, constipation TISSUE SUBMITTED: Distal esophagus biopsy MICROSCOPIC DIAGNOSIS Distal esophagus, biopsy: Gastroesophageal junctional mucosa with chronic inflammation. No evidence of goblet cell metaplasia. See comment. AM:jono 03/02/2022 COMMENT Alcian blue/PAS stain with matched control supports the above diagnosis. MICROSCOPIC DESCRIPTION Slides are reviewed. GROSS DESCRIPTION Received in fixative is one container labeled with the patient's name and designated distal esophagus biopsy. The specimen consists of multiple irregular fragments of light corbin soft tissue that in aggregate measure 1.5 x 1 x 0.1 cm. The specimen is totally submitted in one cassette. / AM:jono 03/01/2022 TC:3 CPT: 19343, 30907
[2022-03-01] MEDS: Lactated Ringers 1,000 ML 15 ML IV (06:27)
[2022-03-01 06:28] VITALS: BP 147/69; PULSE 90; RESP 16; TEMP 36.6; O2SAT 100; BMI 48.2
[2022-03-01 06:28] LABS: Internal QC Validated? YES +Cl - CLEAR BKGD; Pregnancy, Urine Negative Negative
--- NOTE | 2022-03-01 07:07 | HP.PCM_ITS ---
History and Physical Date of Admission: 03/01/22 AFIA LYNCH, is a 36 F who presents to the office today for 6 mo f/u Glover's esophagus, GERD, constipation GERD/Glover's -- diagnosed with Glover's 02/2021. Remains on pantoprazole 40 mg daily, it is effective. She rarely takes a TUMS if she eats something that doesn't agree with her. Plan is repeat EGD 02/2022. Dysphagia resolved with Constipation -- continues to take Fiber[employer] tablets, they continue to keep her BMs regular No nausea, vomiting, bloating, early satiety, abd pain, constipation, diarrhea, melena, hematochezia. EGD 02/16/21 Impression: ? - LA Grade A reflux esophagitis. Biopsied. ? - Erythematous mucosa in the stomach. Biopsied. ? - Small hiatal hernia. ? - Duodenitis. Biopsied. MICROSCOPIC DIAGNOSIS A.? 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 Gastric antrum, biopsy:Mild chronic gastritis.See comment.C.? Distal esophagus, biopsy:Gastroesophageal junctional mucosa with mild chronic inflammation.Focal goblet cell metaplasia present.No evidence of dysplasia.See comment H Pylori? (polyclonal) ? ? negative Block CP53? (DO-7)? ? ? negative Ki-67? (30-9)? negative ROS Const Constitutional: Positive for fatigue ENT ENT: No difficulty swallowing Gastro GI: No abdominal pain, belching, bloating, change in bowel habits, change in stool character, coffee ground emesis, constipation, cramping, diarrhea, heartburn, difficulty swallowing, feeling full early, excessive flatus, incontinent of stools, Vomiting blood/hematemesis, Blood in stool, loose stools, Black,tarry stools, nausea/dyspepsia, pain with swallowing, vomiting or other Musc Musculoskeletal: No joint pain Skin Skin: No yellowing of the eye or itchy eyes Psych Psychiatric: Positive for anxiety and Positive for depression Endo Endocrine: Positive for fatigue Aller/Imm Allergy/Immunologic: No itchy eyes Jimbo/Lymp Hematologic/Lymphatic: No easy bleeding or easy bruising Exam Const General: cooperative and comfortable Nutritional Appearance: obese Orientation: alert, awake and oriented x3 HENMT Head: normal to inspection Eyes General: appearance normal, both eyes and all related structures Resp Effort & Inspection: normal respiratory effort Psych Mood: euthymic mood Affect: normal affect Quality Reporting Tobacco Screening ([facility] 138) Smoking Status: Never smoker Assessment and Plan Assessment and Plan (1) GERD (gastroesophageal reflux disease): ?Status:?Acute ?Plan: Controlled with pantoprazole 40 mg daily, continue that (2) Glover's esophagus determined by biopsy: ?Status:?Acute ?Plan: One yr f/u EGD is scheduled for 02/2022, continue PPI (3) Constipation: ?Status:?Acute ?Plan: Well managed with [employer] I have re-examined the patient. There are no clinical changes since date of exam.
[2022-03-01 07:27] VITALS: BP 109/67; BP 147/69; PULSE 92; RESP 16; TEMP 36.3; O2SAT 99
--- NOTE | 2022-03-01 07:27 | OP.EGD_ITS ---
Patient Name: Edna Wan Procedure Date: 03/01/2022 7:10 AM Date of : 1985 Age: 36 Procedure: Upper GI endoscopy Indications: Heartburn, Follow-up of Glover's esophagus Providers: Fortunato Foster DO Medicines: Monitored Anesthesia Care Patient Profile: This is a 36 year old female. Refer to note in patient chart for documentation of history and physical. Patient has symptoms of chronic heartburn and chronic nausea. Complications: No immediate complications. Procedure: Pre-Anesthesia Assessment: - Prior to the procedure, a History and Physical was performed, and patient medications and allergies were reviewed. The patient is competent. The risks and benefits of the procedure and the sedation options and risks were discussed with the patient. All questions were answered and informed consent was obtained. Patient identification and proposed procedure were verified by the physician in the pre-procedure area. Mental Status Examination: alert and oriented. Airway Examination: normal oropharyngeal airway and neck mobility. Respiratory Examination: clear to auscultation. CV Examination: normal. Prophylactic Antibiotics: The patient does not require prophylactic antibiotics. Prior Anticoagulants: The patient has taken no previous anticoagulant or antiplatelet agents. ASA Grade Assessment: II - A patient with mild systemic disease. After reviewing the risks and benefits, the patient was deemed in satisfactory condition to undergo the procedure. The anesthesia plan was to use monitored anesthesia care (MAC). Immediately prior to administration of medications, the patient was re-assessed for adequacy to receive sedatives. The heart rate, respiratory rate, oxygen saturations, blood pressure, adequacy of pulmonary ventilation, and response to care were monitored throughout the procedure. The physical status of the patient was re-assessed after the procedure. After obtaining informed consent, the endoscope was passed under direct vision. Throughout the procedure, the patient's blood pressure, pulse, and oxygen saturations were monitored continuously. The gastroscope was introduced through the mouth, and advanced to the second part of duodenum. The upper GI endoscopy was accomplished without difficulty. The patient tolerated the procedure well. Scope In: 7:17:11 AM Scope Out: 7:21:57 AM Total Procedure Duration Time 0 hours 4 minutes 46 seconds Findings: The Z-line was irregular and was found 39 cm from the incisors. Biopsies were taken with a cold forceps for histology. Verification of patient identification for the specimen was done. Estimated blood loss was minimal. A small hiatal hernia was present. The exam was otherwise without abnormality. The cardia and gastric fundus were normal on retroflexion. The first portion of the duodenum was normal. Impression: - Z-line irregular, 39 cm from the incisors. Biopsied. - Small hiatal hernia. - The examination was otherwise normal. - Normal first portion of the duodenum. Recommendation: - Discharge patient to home. - Resume previous diet. - Continue present medications. - Await pathology results. Procedure Code(s): --- Professional --- 42555, Esophagogastroduodenoscopy, flexible, transoral; with biopsy, single or multiple CPT copyright 2017 [employer]. All rights reserved. The codes documented in this report are preliminary and upon director hydrogen storage engineering review may be revised to meet current compliance requirements. Fortunato Foster DO 03/01/2022 7:27:18 AM This report has been signed electronically. Number of Addenda: 0 Note Initiated On: 03/01/2022 7:10 AM
--- NOTE | 2022-03-01 07:28 | OP.CCLET_ITS ---
03/01/2022 Bijan Chapin [address] [place] [address] Re : Upper GI endoscopy procedure for Edna Wan Dear Dr. Chapin This procedure was performed on Tuesday, March 01, 2022. My impressions and recommendations are as follows: Impressions : - Z-line irregular, 39 cm from the incisors. Biopsied. - Small hiatal hernia. - The examination was otherwise normal. - Normal first portion of the duodenum. Recommendations : - Discharge patient to home. - Resume previous diet. - Continue present medications. - Await pathology results. My findings are described in the full procedure note, which is enclosed. If I can be of further assistance, please feel free to contact me at . Sincerely, Fortunato Foster, 03/01/2022 7:27:18 AM This report has been signed electronically.
[2022-03-01 07:32] VITALS: BP 111/70; BP 147/69; PULSE 84; RESP 16; O2SAT 99
[2022-03-01 07:37] VITALS: BP 121/73; BP 147/69; PULSE 77; RESP 16; O2SAT 99
[2022-03-01 07:42] VITALS: BP 115/70; BP 147/69; PULSE 81; RESP 16; TEMP 36.2; O2SAT 100
[2022-03-01 07:50] VITALS: BP 147/69
== END 2022-03-01 08:02 | disposition home or self-care (01) ==
LOC: EN 06:04 → AC 06:05
PROVIDERS: Anesthesiology; PCP Preventive Medicine Occupational Medicine; Referring Provider Preventive Medicine Occupational Medicine; Visit Provider Internal Medicine Gastroenterology
PROC: 0DJ08ZZ Inspection of Upper Intestinal Tract, Via Natural or Artificial Opening Endoscopic (ICD-10-PCS; CPT 43235; principal; 2022-03-01 06:55)
DX: K44.9 Diaphragmatic hernia without obstruction or gangrene (principal); K21.00 Gastro-esophageal reflux disease with esophagitis, without bleeding; I10 Essential (primary) hypertension; Z79.899 Other long term (current) drug therapy
CPT/HCPCS: 43239; 81025; 88305; 88313; J7120

== ENCOUNTER → 2022-05-15 | Outpatient (CLI) | payer OTHER, SELFPAY ==
[2022-05-15 11:55] LABS: Absolute Neutrophil Count 5.5 X10^3/uL (2.0-7.7); Basophil# 0.06 X10^3/uL; Basophil% 0.7 % (0-1); Eosinophil# 0.38 X10^3/uL; Eosinophils% 4.3 % (0-5); Hematocrit 36.8 % (37-47); Hemoglobin 11.9 g/dL (12.0-15.0); Lymphocyte % 22.7 % (19-41); Mean Corp Hgb Conc 32.3 g/dL (32-36); Mean Corpuscular Hgb 27.3 pg (27.0-32.0); Mean Corpuscular Volume 84.4 fL (81-99); Mean Platelet Vol. 10.4 fl (6.2-12.0); Monocyte# 0.78 X10^3/uL; Monocyte% 8.8 % (0-10); NRBC Flagged by Analyzer 0 % (0-5); Neutrophil # 5.54 X10^3/uL (2.7-7.7); Neutrophil % 62.8 % (47-70); Platelet Count 333 K/mm3 (150-450); RBC Distribution Width CV 14.6 % (11.6-14.6); RBC Distribution Width SD 44.8 fl (35.1-43.9); Red Blood Count 4.36 M/mm3 (4.2-5.4); White Blood Count 8.8 K/mm3 (4.4-11.0)
[2022-05-15 12:10] LABS: ALB/GLOB Ratio 0.9 RATIO (0.9-2.4); AST(SGOT) 22 U/L (15-37); Alanine Aminotransfer ALT/SGPT 27 U/L (13-56); Albumin, Serum 3.8 g/dL (3.2-5.0); Alkaline Phosphatase 101 U/L (45-117); Anion Gap 5 (5-15); BUN 11 mg/dL (7-18); BUN/Creat Ratio 20.6 RATIO (10-20); Calcium,Total 9.4 mg/dL (8.5-10.1); Chloride 104 mmol/L (98-107); Cholesterol 172 mg/dL (200); Creatinine, Serum 0.53 mg/dL (0.55-1.02); EST Glomerular Filtration Rate 136 mL/min (>60); Est Glom Filt Rate - Afr Amer 165 mL/min (>60); Globulin 4.4 g/dL (2.2-4.2); Glucose 90 mg/dL (74-106); High Density Lipoprotein 61 mg/dL; Potassium 4.3 mmol/L (3.5-5.1); Protein, Total 8.2 g/dL (6.4-8.2); Sodium Level 135 mmol/L (136-145); Triglycerides 69 mg/dL; Very Low Density Lipoprotein 14 mg/dL (5-40)
== END | disposition home or self-care (01) ==
LOC: LAB 11:29
PROVIDERS: PCP Internal Medicine; Referring Provider Internal Medicine; Visit Provider Internal Medicine
DX: I10 Essential (primary) hypertension (principal); F41.9 Anxiety disorder, unspecified; F32.A Depression, unspecified
CPT/HCPCS: 36415; 80053; 80061; 85025

== ENCOUNTER → 2022-09-10 | Outpatient (CLI) | payer OTHER, SELFPAY ==
[2022-09-17 12:08] LABS: HPV APTIMA, High Risk Negative (Negative)
== END | disposition home or self-care (01) ==
LOC: LABSPEC 16:39
PROVIDERS: PCP Internal Medicine; Referring Provider Obstetrics & Gynecology; Visit Provider Obstetrics & Gynecology
DX: Z12.4 Encounter for screening for malignant neoplasm of cervix (principal)
CPT/HCPCS: 87624; 88175; G0145

== ENCOUNTER → 2022-10-11 | Outpatient (CLI) | payer OTHER, SELFPAY ==
[2022-10-11 17:24] LABS: Anion Gap 7 (5-15); BUN 14 mg/dL (7-18); BUN/Creat Ratio 22.4 RATIO (10-20); Calcium,Total 9.6 mg/dL (8.5-10.1); Chloride 105 mmol/L (98-107); Creatinine, Serum 0.63 mg/dL (0.55-1.02); EST Glomerular Filtration Rate 113 mL/min (>60); Est Glom Filt Rate - Afr Amer 137 mL/min (>60); Glucose 105 mg/dL (74-106); Potassium 3.7 mmol/L (3.5-5.1); Sodium Level 135 mmol/L (136-145); T4 Free Direct 0.97 ng/dL (0.76-1.46); Thyroid Stim Hormone (TSH) 1.38 uIU/mL (0.358-3.74)
== END | disposition home or self-care (01) ==
LOC: BIMLAB 15:17
PROVIDERS: PCP Internal Medicine; Visit Provider Internal Medicine
DX: I10 Essential (primary) hypertension (principal); R00.0 Tachycardia, unspecified
CPT/HCPCS: 36415; 80048; 84439; 84443

== ENCOUNTER → 2022-10-12 | Outpatient (CLI) | payer OTHER, SELFPAY ==
--- NOTE | 2022-10-12 10:25 | EKG12_ITS ---
Test Reason : PRE-OP Blood Pressure : / mmHG Vent. Rate : 094 BPM Atrial Rate : 094 BPM P-R Int : 150 ms QRS Dur : 072 ms QT Int : 362 ms P-R-T Axes : 034 042 034 degrees QTc Int : 452 ms Normal sinus rhythm Normal ECG Confirmed by EVELIA HAMPTON, NICOLLE ([id number]), editor in chief newspaper CADENCE DUVALL ([id number]) on 10/13/2022 9:42:03 AM Referred By: Amrita Zhao Confirmed By:NICOLLE ALTAMIRANO MD
== END | disposition home or self-care (01) ==
LOC: PSN 10:24
PROVIDERS: PCP Internal Medicine; Referring Provider Internal Medicine; Visit Provider Internal Medicine
DX: R00.0 Tachycardia, unspecified (principal)
CPT/HCPCS: 93005

== ENCOUNTER 2023-04-07 06:25 | Day surgery (SDC) | payer OTHER, SELFPAY ==
[2023-04-07 06:48] VITALS: BP 140/95; PULSE 105; RESP 18; TEMP 36.1; O2SAT 99; BMI 51.2
[2023-04-07 06:51] LABS: Internal QC Validated? YES +Cl - CLEAR BKGD; Pregnancy, Urine Negative Negative
[2023-04-07] MEDS: Lactated Ringers 1,000 ML 15 ML IV (06:51)
--- NOTE | 2023-04-07 07:02 | HP.PCM_ITS ---
History and Physical Date of Admission: 04/07/23 AFIA LYNCH, is a 37 F who presents to the office today for a follow up. She had an EGD for GERD. It was indicated for h/o Glover's esophagus. EGD revealed Z-line irregular, small hiatal hernia, otherwise normal. Biopsy was negative for Glover's esophagus. She remains on pantoprazole 40 mg daily. She has no GI complaints at this time. No heartburn or acid reflux. Denies nausea, vomiting, early satiety, dysphagia, abdominal pain, constipation, diarrhea, melena, hematochezia. 03/01/2022 EGD Impression: ? - Z-line irregular, 39 cm from the incisors. ? Biopsied. ? - Small hiatal hernia. ? - The examination was otherwise normal. ? - Normal first portion of the duodenum. MICROSCOPIC DIAGNOSIS Distal esophagus, biopsy: Gastroesophageal junctional mucosa with chronic inflammation. No evidence of goblet cell metaplasia ROS Const Constitutional: No body ache, chills, excessive sweating, fatigue, fever(s), frequent falls, headache(s), snoring, weakness, sleep problems or change in appetite Eyes Eyes: No blurry vision, change in vision, discharge, vision loss, floaters or Light sensitivity ENT ENT: No abnormal hearing, ear or mastoid pain, tinnitus, nosebleed/epistaxis, nasal congestion, nasal discharge, headache(s), neck pain or sore throat Resp Respiratory: No cough, excessive phlegm production, shortness of breath, snoring or wheezing Cardio Cardiology: No chest pain at rest, chest pain with exertion, excessive sweating, shortness of breath, dyspnea on exertion, lightheadedness, orthopnea or palpitations Gastro GI: No abdominal pain, change in bowel habits, constipation, cramping, diarrhea or nausea/dyspepsia Genitourinary-Female: No burning urination, painful urination, urinary incontinence, urinary frequency, suprapubic fullness or side pain Musc Musculoskeletal: No abnormal gait, joint pain, back pain, limited range of motion, muscle weakness, neck pain or numbness Skin Skin: No dry skin, redness, excessive hair growth, yellowing of the eye, lesions, itchy eyes, rash or wounds Neuro Neurology: No abnormal gait, abnormal hearing, weakness, frequent falls, headache(s), memory loss or numbness Psych Psychiatric: No anxiety, No change in appetite, No depression, No memory loss, No panic attacks and No Thoughts of harming yourself/Others Endo Endocrine: No cold intolerance, excessive sweating, fatigue, flushing, heat intolerance, increased thirst/drinking or increased hunger Aller/Imm Allergy/Immunologic: No itchy eyes, seasonal allergy symptoms, hives or wheezing Jimbo/Lymp Hematologic/Lymphatic: No easy bleeding or enlarged lymph nodes Exam Const General: cooperative, comfortable and no acute distress Orientation: alert, awake and oriented x3 HENMT Head: normal to inspection, normocephalic and atraumatic Ears: hearing grossly normal bilaterally Eyes General: appearance normal, both eyes and all related structures Neck Neck: normal visual inspection, full ROM and supple Neck mass: No Resp Effort & Inspection: normal respiratory effort and able to speak in complete sentences Auscultation: Bilateral: Clear to Auscultation Cardio Rhythm: regular rhythm Heart Sounds: S1 normal and S2 normal GI Palpation: soft (Nontender, no palpable organomegaly.) Neuro General: patient alert, patient awake, patient oriented x3, moves all extremities and CN's II-XI intact bilaterally Extrem General: no clubbing, cyanosis or edema Psych Appearance: grossly normal Mental Status: mental status grossly normal Mood: congruent mood Affect: normal affect Quality Reporting Tobacco Screening ([facility] 138) Smoking Status: Never smoker Assessment and Plan Assessment and Plan (1) GERD (gastroesophageal reflux disease): Status: Chronic Qualifiers: Esophagitis presence: with esophagitis Esophagitis bleeding: without hemorrhage Qualified Code(s): K21.00 - Gastro-esophageal reflux disease with esophagitis, without bleeding Plan: Controlled with pantoprazole 40 mg daily (2) Glover's esophagus determined by biopsy: Status: Acute Plan: One yr f/u EGD is scheduled for 03/2023, continue PPI (3) Constipation: Status: Acute Qualifiers: Constipation type: slow transit constipation Qualified Code(s): K59.01 - Slow transit constipation Plan: Well managed with [employer] I have examined the patient and the H&P has been reviewed. There are no clinical changes since date of exam.
--- NOTE | 2023-04-07 07:30 | EGD_PTH ---
PATIENT: AFIA LYNCH LOC: EN U#:[id number] AGE/SX: 37/F ROOM: RE04/07/[address]: Dr. Fortunato Foster DO : 1985 BED: DIS: 04/07/2023 SPEC #: [id number] RECD: 04/07/23 10:56 STATUS: AMANDA JAYNE #: [id number] NISHA: 04/07/23 07:[address]: Fortunato Foster DEPT: SURGICAL PATHOLOGY RECD BY: Rani El ENTERED: 04/07/23 13:06 SP TYPE: EGD BIOPSY JANET DR: Dr. Amrita Zhao MD Tissues: A - Duodenum, NOS B - Gastric mucous membrane C - Esophagus, NOS Procedures: Special Stain Group II Surgery Specimen Level IV Alcian Blue/PAS (control) HEADER OPERATION: EGD with biopsy PRE-OP DIAGNOSIS: GERD, Barett's esophagus determined by biopsy, Constipation TISSUE SUBMITTED: A - Duodenum biopsy, B - Gastric antrum biopsy, C - Distal esophagus biopsy. MICROSCOPIC DIAGNOSIS A. Duodenum, biopsy: Consistent with Luc's gland hyperplasia. B. Gastric antrum, biopsy: Chronic gastritis. See comment. C. Distal esophagus, biopsy: Gastroesophageal junctional mucosa with chronic inflammation. No evidence of goblet cell metaplasia. See comment. AM:jono 04/08/2023 COMMENT B. The results of immunohistochemistry for Helicobacter pylori will be reported separately ([id number]). C. Alcian blue/PAS stain with matched control supports the above diagnosis. MICROSCOPIC DESCRIPTION Slides are reviewed. GROSS DESCRIPTION A - Received in fixative is one container labeled with the patient's name and designated duodenum biopsy. The specimen consists of two irregular fragments of light corbin soft tissue that in aggregate measure 0.6 x 0.3 x 0.1 cm. The specimen is totally submitted in one cassette. B - Received in fixative is one container labeled with the patient's name and designated antrum biopsy. The specimen consists of multiple irregular fragments of light corbin soft tissue that in aggregate measure 1.0 x 0.2 x 0.1 cm. The specimen is totally submitted in one cassette. C - Received in fixative is one container labeled with the patient's name and designated distal esophagus. The specimen consists of multiple irregular fragments of light corbni soft tissue that in aggregate measure 1.0 x 0.5 x 0.1 cm. The specimen is totally submitted in one cassette. / AM:jono 04/07/2023 TC:3 CPT: 49039 x3, 78833
--- NOTE | 2023-04-07 07:30 | IMM_PTH ---
PATIENT: AFIA LYNCH LOC: EN U#:[id number] AGE/SX: 37/F ROOM: RE04/07/[address]: Dr. Fortunato Foster DO : 1985 BED: DIS: 04/07/2023 SPEC #: [id number] RECD: 04/07/23 14:41 STATUS: AMANDA REEnrique #: [id number] NISHA: 04/07/23 07:[address]: Fortunato Foster DEPT: IMMUNOHISTOCHEMISTRY RECD BY: Rachell Cano ENTERED: 04/07/23 14:42 SP TYPE: IMMUNO OTHR DR: Dr. Amrita Zhao MD Tissues: B - Stomach, NOS Procedures: H Pylori (initial) PHYSICIAN [facility] INSTITUTION [address] [address] SPECIMEN INFORMATION: Tissue Source: B - Gastric antrum Clinical Info: GERD, Glover's esophagus, constipation, GERD Specimen Number: [id number] CPT code: 96760 METHODOLOGY: Deparaffinized sections of prefer/formalin-fixed tissue or PAP/DQ stained slides are incubated with monoclonal/polyclonal antibodies/oligonucleotide probes. Localization is made via biotin free immunoperoxidase method. Appropriate controls are performed and reacted as expected. Results on target cell population are indicated in the following table: RESULTS: ANTIBODY / CLONE RESULT Block B H Pylori (polyclonal) negative These tests were developed and their performance characteristics determined by [facility]. They may not have been cleared or approved by the U.S. Food and Drug Administration. The FDA has determined that such clearance or approval is not necessary. The above immunohistochemical/dualISH markers are ordered and reviewed by the Pathologist. INTERPRETATION: B. Gastric antrum, biopsy: Negative for Helicobacter pylori organisms. AM/bl 04/08/2023
[2023-04-07 08:06] VITALS: BP 127/75; BP 140/95; PULSE 97; RESP 16; TEMP 36.2; O2SAT 99
[2023-04-07 08:10] VITALS: BP 131/76; BP 140/95; PULSE 92; RESP 18; O2SAT 95
--- NOTE | 2023-04-07 08:10 | OP.CCLET_ITS ---
04/07/2023 Amrita Zhao MD [address] [place] [address] [place] [address] Re : Upper GI endoscopy procedure for Edna Wan Dear Dr. Zhao This procedure was performed on March. My impressions and recommendations are as follows: Impressions : - Z-line irregular, 40 cm from the incisors. Biopsied. - Erythematous mucosa in the stomach. Biopsied. - Erythematous duodenopathy. Biopsied. Recommendations : - Discharge patient to home. - Resume previous diet. - Continue present medications. - Await pathology results. - Repeat upper endoscopy for surveillance. My findings are described in the full procedure note, which is enclosed. If I can be of further assistance, please feel free to contact me at . Sincerely, Fortunato Foster, 04/07/2023 8:09:49 AM This report has been signed electronically.
--- NOTE | 2023-04-07 08:10 | OP.EGD_ITS ---
Patient Name: Edna Wan Procedure Date: 04/07/2023 7:46 AM Date of : 1985 Age: 37 Procedure: Upper GI endoscopy Indications: Epigastric abdominal pain, Dyspepsia, Suspected esophageal reflux Providers: Fortunato Foster DO Referring MD: Fortunato Foster DO Medicines: Monitored Anesthesia Care Patient Profile: This is a 37 year old female. Refer to note in patient chart for documentation of history and physical. Patient has symptoms of chronic dyspepsia and chronic heartburn. Complications: No immediate complications. Procedure: Pre-Anesthesia Assessment: - Prior to the procedure, a History and Physical was performed, and patient medications and allergies were reviewed. The patient is competent. The risks and benefits of the procedure and the sedation options and risks were discussed with the patient. All questions were answered and informed consent was obtained. Patient identification and proposed procedure were verified by the physician in the pre-procedure area. Mental Status Examination: alert and oriented. Airway Examination: normal oropharyngeal airway and neck mobility. Respiratory Examination: clear to auscultation. CV Examination: normal. Prophylactic Antibiotics: The patient does not require prophylactic antibiotics. Prior Anticoagulants: The patient has taken no anticoagulant or antiplatelet agents. ASA Grade Assessment: II - A patient with mild systemic disease. After reviewing the risks and benefits, the patient was deemed in satisfactory condition to undergo the procedure. The anesthesia plan was to use monitored anesthesia care (MAC). Immediately prior to administration of medications, the patient was re-assessed for adequacy to receive sedatives. The heart rate, respiratory rate, oxygen saturations, blood pressure, adequacy of pulmonary ventilation, and response to care were monitored throughout the procedure. The physical status of the patient was re-assessed after the procedure. After obtaining informed consent, the endoscope was passed under direct vision. Throughout the procedure, the patient's blood pressure, pulse, and oxygen saturations were monitored continuously. The Endoscope was introduced through the mouth, and advanced to the second part of duodenum. The upper GI endoscopy was accomplished without difficulty. The patient tolerated the procedure well. Scope In: 7:57:09 AM Scope Out: 8:01:46 AM Total Procedure Duration Time 0 hours 4 minutes 37 seconds Findings: The Z-line was irregular and was found 40 cm from the incisors. Biopsies were taken with a cold forceps for histology. Verification of patient identification for the specimen was done. Estimated blood loss was minimal. Patchy mildly erythematous mucosa without bleeding was found in the stomach. Biopsies were taken with a cold forceps for histology. Verification of patient identification for the specimen was done. Estimated blood loss was minimal. Biopsies were taken with a cold forceps for Helicobacter pylori testing. Verification of patient identification for the specimen was done. Estimated blood loss was minimal. Patchy mildly erythematous mucosa without active bleeding and with no stigmata of bleeding was found in the duodenal bulb. Biopsies were taken with a cold forceps for histology. Verification of patient identification for the specimen was done. Estimated blood loss was minimal. Impression: - Z-line irregular, 40 cm from the incisors. Biopsied. - Erythematous mucosa in the stomach. Biopsied. - Erythematous duodenopathy. Biopsied. Recommendation: - Discharge patient to home. - Resume previous diet. - Continue present medications. - Await pathology results. - Repeat upper endoscopy for surveillance. Procedure Code(s): --- Professional --- 20663, Esophagogastroduodenoscopy, flexible, transoral; with biopsy, single or multiple CPT copyright 2021 [employer]. All rights reserved. The codes documented in this report are preliminary and upon flight software test engineer review may be revised to meet current compliance requirements. Fortunato Foster DO 04/07/2023 8:09:49 AM This report has been signed electronically. Number of Addenda: 0 Note Initiated On: 04/07/2023 7:46 AM
[2023-04-07 08:15] VITALS: BP 132/83; BP 140/95; PULSE 85; RESP 18; O2SAT 97
[2023-04-07 08:21] VITALS: BP 131/78; BP 140/95; PULSE 87; RESP 18; TEMP 37.4; O2SAT 95
[2023-04-07 08:34] VITALS: BP 140/95
== END 2023-04-07 08:41 | disposition home or self-care (01) ==
LOC: EN 06:26 → AC 06:28
PROVIDERS: Anesthesiology; PCP Internal Medicine; Referring Provider Internal Medicine; Visit Provider Internal Medicine Gastroenterology
PROC: 0DJ08ZZ Inspection of Upper Intestinal Tract, Via Natural or Artificial Opening Endoscopic (ICD-10-PCS; CPT 43235; principal; 2023-04-07 07:25)
DX: K21.00 Gastro-esophageal reflux disease with esophagitis, without bleeding (principal); K59.01 Slow transit constipation; K22.89 Other specified disease of esophagus; K31.89 Other diseases of stomach and duodenum; K29.50 Unspecified chronic gastritis without bleeding; Z87.19 Personal history of other diseases of the digestive system
CPT/HCPCS: 43239; 81025; 88305; 88313; 88342; J7120; J2405

== ENCOUNTER 2023-06-15 06:31 | Emergency (ER) | payer OTHER, SELFPAY ==
[2023-06-15 06:32] VITALS: PULSE 123; RESP 18; TEMP 36.8; O2SAT 98; BMI 53.4
--- NOTE | 2023-06-15 07:08 | RAD_ITS ---
EXAM: XR CHEST, 2 VIEWS CLINICAL INDICATION: chest pain TECHNIQUE: Frontal and lateral views of the chest. COMPARISON: No relevant prior studies available. FINDINGS: LUNGS AND PLEURAL SPACES: Unremarkable. No consolidation or edema. No pneumothorax. No effusion. HEART: Unremarkable. Cardiac silhouette not enlarged. MEDIASTINUM: Central airways and mediastinal contour are unremarkable. BONES/JOINTS: Unremarkable. No acute fracture. SOFT TISSUES: Unremarkable. RAD/Chest PA and Lateral IMPRESSION: No radiographic evidence of acute cardiopulmonary disease. Electronically Signed: Mendoza Calloway MD at 7:34 EST ,
[2023-06-15 07:18] LABS: Absolute Neutrophil Count 7.4 X10^3/uL (2.0-7.7); Basophil# 0.07 X10^3/uL; Basophil% 0.7 % (0-1); Eosinophil# 0.15 X10^3/uL; Eosinophils% 1.5 % (0-5); Hematocrit 35.7 % (37-47); Mean Corp Hgb Conc 30.8 g/dL (32-36); Mean Corpuscular Hgb 24.9 pg (27.0-32.0); Mean Platelet Vol. 10.6 fl (6.2-12.0); Monocyte# 0.81 X10^3/uL; Monocyte% 8.1 % (0-10); NRBC Flagged by Analyzer 0 % (0-5); Neutrophil # 7.35 X10^3/uL (2.7-7.7); Neutrophil % 73.6 % (47-70); Platelet Count 342 K/mm3 (150-450); RBC Distribution Width SD 46.7 fl (35.1-43.9); Red Blood Count 4.41 M/mm3 (4.2-5.4)
[2023-06-15] MEDS: 0.9% Normal Saline (1000mL) 1,000 ML 999 ML IV (07:23)
--- OUTSIDE RECORDS SUMMARY | 2023-06-15 07:47 | XMS RPT_ITS | CCD ---
Author Name Unknown Address [address] [place] [id number] Organization [facility] Results Test Name Value Interpretation Reference Range Facil ity Progress note 03-03-2021 Note Date & Type Note Facility 03-03-2021 Note HNO ID: [id number] Author: Sonia Oropeza APRN.CNM Service: ? Author Type: Credit Specialist Type: Progress Notes Filed: 03/03/2021 5:26 PM Note Text: Afia is a 35 year old who presents for an annual gynecologic exam without complaints. Menses: cycles every 27-30 days and lasts 4 days of flow. Contraception: none HPV vaccine: No Last Pap: 12/20/2019 normal HPV: 12/20/2019 negative History of abnormal pap: No Last mammogram: felt lump in right breast years ago Sexually active: Yes History of STDS: None Time with current partner: 12 years, together 18 years Pain with intercourse: No Postcoital bleeding: No Hot flashes: No Night sweats: No Vaginal dryness: No OB History T0 L0 SAB0 TAB0 Ectopic0 Multiple0 Live Births0 PAST MEDICAL HISTORY Diagnosis Date - Anxiety - HTN (hypertension) PAST SURGICAL HISTORY Procedure Laterality Date - LAPAROSCOPIC CHOLEYCYSTECTOMY Cholecystectomy, lap - REMOVAL ADENOIDS,PRIMARY,<12 Y/O Adenoidectomy - REMOVAL OF TONSILS,<12 Y/O Tonsillectomy FAMILY HISTORY Problem Relation Age of Onset - Cancer Mother pancreatic - None Father unknown SOCIAL HISTORY Social History Tobacco Use - Smoking status: Never Smoker - Smokeless tobacco: Never Used Vaping Use - Vaping Use: Never used Substance Use Topics - Alcohol use: Yes Comment: rare - Drug use: No REVIEW OF SYSTEMS Abdomen: No abdominal pain, nausea, vomiting, diarrhea, or constipation. No bloating, early satiety, indigestion, or increased flatulence. Bladder: No dysuria, gross hematuria, urinary frequency, urinary urgency, or incontinence. Breast: No breast lumps, nipple d/c, overlying skin changes, redness or skin retraction. Allergies and current medication updated:Yes EXAM: BP 120/76 Ht 5' 9.25 (1.76m) Wt 320 lb 12.8 oz (145.5kg) LMP 12/13/2019 BMI 47.03 kg/(m2). GENERAL: pleasant, female in no apparent distress HEENT: Normocephalic, atraumatic, mucus membranes moist and no lesions NECK: Supple, full range of motion, no adenopathy and thyroid normal DERMATOLOGY: Normal, without lesions, non-icteric and non-hirsute BREAST: soft, non-tender, symmetric, no dominant mass, normal nipple-areolar complex, no lymphadenopathy and no nipple discharge CHEST: Normal inspiratory effort ABDOMEN: soft, non-tender and no masses PELVIC: external genitalia normal, normal Bartholin's glands, urethra, Tres Arroyos's glands, no vulvar lesions, no cervical lesions, good vaginal support, physiologic discharge present, normal appearing perineal body and perianal region BIMANUAL: uterus normal size, shape and consistency, no adnexal masses and non-tender RECTOVAGINAL: deferred. NEURO: alert and oriented x3,exam grossly non-focal EXTREMITIES: normal ASSESSMENT/PLAN: 1) Health maintenance: Pap/HPV up to date. Nutrition, exercise and routine health maintenance exams reviewed. HPV vaccine: discussed, not interested 2) Contraception: vasectomy 3) STD screening: Declined STD check. 4) Follow up one year or sooner as needed Sonia Oropeza APRN.CRISTY [facility] Progress note 12-03-2020 Note Date & Type Note Facility 12-03-2020 Note HNO ID: [id number] Author: Rajiv Oh APRN.[employer] Service: ? Author Type: Nurse Practitioner Type: Progress Notes Filed: 12/03/2020 8:35 AM Note Text: Subjective HPI Nontoxic-appearing female presents urgent care chief complaint bloating and nausea. Duration of symptoms few months. Associated symptoms listed above. Patient states was on omeprazole about a month ago for 2 weeks. This medication worked well but did cause nausea and vomiting. Was taken off this medication by PCP and placed on Pepcid. Patient states Pepcid was working until a few days ago when she had increased bloating and burning sensation. Presents today with chief complaint of increased bloating and stomach burning sensation. This sensation is exacerbated by laying flat on back during the night. Improved by sitting up. Denies any recent dietary changes over the last few months. Recently she has ate a more bland diet . Denies any vomiting, fevers, localized abdominal pain, chest pain, shortness of breath, diaphoresis, headaches, dizziness, change in bowel or bladder habit. Past medical history prescription medication use allergies reviewed denies chance of is not breast-feeding. .Patient presents with: Nausea: bloating x couple weeks increased x couple days PAST MEDICAL HISTORY Diagnosis Date - Anxiety - HTN (hypertension) PAST SURGICAL HISTORY Procedure Laterality Date - LAPAROSCOPIC CHOLEYCYSTECTOMY Cholecystectomy, lap - REMOVAL ADENOIDS,PRIMARY,<12 Y/O Adenoidectomy - REMOVAL OF TONSILS,<12 Y/O Tonsillectomy ALLERGIES Hctz [Hydrochlorothiazide] and Metoprolol MEDICATIONS famotidine (PEPCID) 40 mg tablet Take 40 mg by mouth twice daily. ibuprofen (MOTRIN) 600 mg tablet Take 1 tablet by mouth every 6 hours as needed. lisinopril (ZESTRIL, PRINIVIL) 40 mg tablet Take 40 mg by mouth once daily. LORazepam (ATIVAN) 1 mg tablet Take 1 mg by mouth every 6 hours as needed. oxymetazoline (GENASAL) 0.05 % nasal spray Use 2 Sprays in the nose twice daily. FAMILY HISTORY Problem Relation Age of Onset - Cancer Mother pancreatic - None Father unknown Social History Tobacco Use - Smoking status: Never Smoker - Smokeless tobacco: Never Used Vaping Use - Vaping Use: Never used Substance Use Topics - Alcohol use: Yes Comment: rare - Drug use: No BP 128/84 Pulse 90 Temp 37.1 ?C (98.7 ?F) Resp 16 Wt (!) 148.8 kg (328 lb) LMP 12/28/2019 SpO2 96% BMI 49.15 kg/m? Review of Systems Constitutional: Negative for chills, fever and malaise/fatigue. HENT: Negative for congestion, ear discharge, ear pain, sinus pain and sore throat. Eyes: Negative for blurred vision, discharge and redness. Respiratory: Negative for cough, sputum production, shortness of breath and wheezing. Cardiovascular: Negative for chest pain. Gastrointestinal: Positive for abdominal pain, heartburn and nausea. Negative for diarrhea and vomiting. Musculoskeletal: Negative for myalgias. Skin: Negative for itching and rash. Neurological: Negative for dizziness and headaches. Objective Physical Exam Constitutional: General: She is not in acute distress. Appearance: She is not diaphoretic. HENT: Head: Normocephalic. Eyes: Conjunctiva/sclera: Conjunctivae normal. Pupils: Pupils are equal, round, and reactive to light. Cardiovascular: Rate and Rhythm: Normal rate and regular rhythm. Pulmonary: Effort: Pulmonary effort is normal. No tachypnea, accessory muscle usage or respiratory distress. Abdominal: General: Bowel sounds are normal. Palpations: Abdomen is soft. Tenderness: There is abdominal tenderness in the right upper quadrant and epigastric area. Musculoskeletal: Cervical back: Normal range of motion and neck supple. No rigidity or tenderness. Lymphadenopathy: Cervical: No cervical adenopathy. Skin: General: Skin is warm and dry. Neurological: Mental Status: She is alert and oriented to person, place, and time. ASSESSMENT/PLAN: 1. Generalized abdominal pain - ICD9: 789.07, ICD10: With patient's presenting symptoms I recommended patient call PCP who has initiated omeprazole and Prilosec therapy. Discussed discussed differential diagnosis such as GERD, ulcers or cholecystitis. Patient states will contact PCP after leaving office today. If unable to establish appointment with PCP today will contact [facility] to see if she is able to become established with a primary care provider through [facility]. Patient was educated on supportive therapies.. Patient was instructed to immediately proceed to emergency room for any new, worsening, or symptoms lasting longer than anticipated. The patient's clinical presentation is otherwise unremarkable at this time. Based on exam and clinical finding, the patient is stable for discharge. Plan of care was discussed with patient. Patient verbalizes understanding and agrees to plan of care. (more content not included)... [facility] Clinical Note 10-11-2019 Note Date & Type Note Facility 10-11-2019 Note . MICRO - Microbiology PROCEDURE: Rapid Flu A+B Screen w Confirm if Ind [*1] SOURCE: Nasopharyngeal Swab BODY SITE: COLLECTED DATE/TIME: 10/11/2019 11:35 EDT RECEIVED DATE/TIME: 10/11/2019 12:56 EDT START DATE/TIME: 10/11/2019 12:56 EDT FREE TEXT SOURCE: FINAL REPORTS Final Report [] Verified Date/Time/Personnel: 10/11/2019 13:37 EDT Specimen is negative for the presence of influenza A antigen. . Specimen is negative for the presence of influenza B antigen. . Inadequate specimen collection, improper sample handling and/or low levels of viral shedding may yield a false-negative result. . The optimal specimen type for the Rapid Flu test is a nasopharyngeal wash/aspirate or nasopharyngeal swab. All negative rapid tests for Flu A and Flu B will be confirmed with a Respiratory Id Panel by PCR. . Assay method employs immunofluorescence technology. Performing Locations *1: This test was performed at: [facility], [address] [place] [address] ([place]) Summary Purpose Family History No Family History Records FoundNo Family History Records Found Advance Directives No Advanced Directives Records FoundNo Advanced Directives Records Found Additional Source Comments INFORMATION SOURCE (unrecogn ized section and content) DATE CREATED AUTHOR AUTHOR'S ORGANIZ ATION 07/01/2021 [facility] FOR RECORDS PERTAINING TO PATIENTS WHO ARE OR HAVE BEEN ENROLLED IN A CHEMICAL DEPENDENCY/SUBSTANCEABUSE PROGRAM, SOME INFORMATION MAY BE OMITTED. This clinical summary was aggregated from multiple sources. Caution should be exercised in using it in the provision of clinical care. This summary normalizes information from multiple sources, and as a consequence, information in this document may materially change the coding, format and clinical context of patient data. In addition, data may be omitted in some cases. CLINICAL DECISIONS SHOULD BE BASED ON THE PRIMARY CLINICAL RECORDS. [employer] provides no warranty or guarantee of the accuracy or completeness of information in this document.
--- NOTE | 2023-06-15 08:03 | EDS_ITS ---
HPI History of Present Illness Chief Complaint: Chest Pain Informant: patient Narrative Narrative: Patient is a 38-year-old female with past medical history of hypertension anxiety and depression as well as intermittent sinus tachycardia and Glover's esophagus. She states that last night around 9 PM she noticed some lower midsternal chest discomfort. She states that there is no associated nausea vomiting diaphoresis or shortness of breath associated with it. She denies any history of DVT/PE and states there is no pleuritic chest component. She states that she did feel her heart began to race at roughly the same time the pain began. She states however she was able to go to bed and sleep through the pain. But that it was still present this morning and secondary to that she comes in for evaluation. She denies any recent trauma or excessive activity and states that there is no history of illicit drug use or excessive stimulant use. [facility] Medical History Abdominal pain Anxiety Anxiety and depression Glover's esophagus determined by biopsy Depression Diverticulosis Family history of pancreatic cancer Former smoker Gastric reflux History of diverticulitis History of gallstones History of hiatal hernia Hypertension Migraine headache Morbid obesity with BMI of 45.0-49.9, adult Non-smoker Obesity Seasonal allergies Seborrheic keratosis Tachycardia Wears glasses Home Medications diltiazem HCl 120 mg capsule,extended release 24 hr 120 mg PO QHS #90 caps [Rx Last Taken Unknown] inulin 2 gram chewable tablet (Fiber Gummies) 2 g PO BID 05/13/22 [History Last Taken Unknown] naproxen sodium 220 mg capsule (Aleve) 220 mg PO BID PRN pain 05/13/22 [History Last Taken Unknown] pantoprazole 40 mg tablet,delayed release (Protonix) 40 mg PO DAILY #90 tabs 10/05/22 [Rx Last Taken Unknown] lisinopril 40 mg tablet See Rx Instructions .Route .COMPLEX #90 tabs 05/04/23 [Rx Last Taken Unknown] escitalopram oxalate 10 mg tablet See Rx Instructions .Route .COMPLEX #90 tabs 06/03/23 [Rx Last Taken Unknown] Allergy/AdvReac Type Severity Reaction Status Date / Time hydrochlorothiazide Allergy INCREASED Verified 06/15/23 06:34 ANXIETY bupropion AdvReac Unknown Other Verified 06/15/23 06:34 metoprolol AdvReac RAPID Verified 06/15/23 06:34 HEART RATE, INCREASED ANXIETY Family History Grandfather Colon cancer Mother Cancer Pancreatic cancer Grandmother Cancer Hypertension Diverticulosis Surgical History History of colonoscopy History of esophagogastroduodenoscopy (EGD) History of tonsillectomy and adenoidectomy Hx laparoscopic cholecystectomy Social History Smoking Status: Former smoker alcohol intake: never substance use type: does not use caffeine: Yes what type of physical activity do you participate in: walking frequency: 3-4 times per week seatbelt use: always do you feel safe at home: Yes additional social history: - Mike RINA ROS ED Constitutional Constitutional ED: Denies chills or fever(s) ENT ENT ED: Denies sore throat Cardiovascular Cardiovascular: Reports chest pain and racing heartbeat Respiratory/Chest Respiratory/Chest: Denies cough or dyspnea Gastrointestinal Gastrointestinal: Denies abdominal pain, diarrhea, nausea or vomiting Genitourinary Genitourinary ED: Denies dysuria Musculoskeletal Musculoskeletal: Denies back pain or myalgias Integumentary Denies rash Neurologic Neurologic: Denies headache(s) Hematologic/Lymphatic Hematologic/Lymphatic: Denies easy bleeding or easy bruising EXAM Physical Exam Const Vital Signs: 06/15/23 06:32 06/15/23 06:34 Temperature 98.2 F Temperature Source Temporal Pulse Rate 123 H Respiratory Rate 18 Respiratory Effort Normal Non-Labored Pulse Ox 98 Oxygen Delivery Method Room Air Positive well nourished and well developed General Appearance ED: well developed; Negative for pallor HEENT Reports moist mucous membranes HEENT Narrative: No signs of infection noted in the posterior pharynx No airway edema or compromise Eyes PERRL and EOMs intact bilaterally General Eye ED: Negative for scleral icterus Neck supple and no JVD Neck Narrative: No nuchal rigidity or meningeal signs noted No obvious thyroid nodule or goiter Chest Wall palpation of chest normal Chest Narrative: No bony deformity or crepitance palpated Resp normal respiratory effort and clear to auscultation bilaterally Cardio regular rhythm Rate: tachycardic and other Other Details: Tachycardic rate with regular rhythm No murmurs rubs or gallops noted Radial and carotid pulses are equal and symmetric GI normal to inspection, nondistended, normoactive bowel sounds, non-tender, non- distended and no masses GI Narrative: No voluntary guarding or rigidity or pulsatile mass Auscultation: normoactive bowel sounds Palpation: soft Extremity normal to inspection Extremity Narrative: No asymmetric edema no pitting edema negative Homans' sign bilaterally Neuro oriented x3, CN's II-XII intact bilaterally and no sensory deficits noted Sensorium / Orientation: alert Motor Exam: strength 5/5 throughout Psych mental status grossly normal Skin no rashes or lesions noted General Skin Exam: Negative for jaundice or pallor MDM MDM MDM Narrative Medical decision making narrative: Patient arrived to the ER tachycardic but otherwise with stable vitals. She reported a lower midsternal chest discomfort that been constant for approximately 10 hours. Differential diagnosis is for acute coronary syndrome versus Glover's esophagus versus esophageal spasm versus pneumonia versus pneumothorax versus pulmonary embolus versus pancreatitis versus gastritis. Secondary to her tachycardia D-dimer was obtained as well as troponin and EKG. EKG shows sinus tachycardia but otherwise was normal. Blood work revealed no clinically significant findings and chest x-ray revealed no acute lung pathology. With IV hydration the patient's heart rate reduced. Therefore at this time she is low risk for cardiovascular disease and as she has a normal troponin and chest x-ray reveals no acute lung pathology. The patient's D-dimer was slightly elevated at 0.82 and with her tachycardia and elevated D-dimer I cannot rule out pulmonary embolus so a CTA will be obtained. As a CTA still pending the patient be signed out to the day physician Dr. Bishop. I feel that if her CTA is normal with improvement of her heart rate with IV fluids as well as overall negative workup there is no need for further evaluation in ER and she will be safe for discharge History & Record Review Discussion w/independent historian: Patient Lab Data Attestation: I reviewed the patient's lab results. Labs: Laboratory Results - last 24 hr 06/15/23 07:00 WBC 10.0 RBC 4.41 Hgb 11.0 L Hct 35.7 L MCV 81.0 MCH 24.9 L MCHC 30.8 L RDW Std Deviation 46.7 H RDW Coeff of Jj 16.0 H Plt Count 342 MPV 10.6 Immature Gran % (Auto) 1.100 H Neut % (Auto) 73.6 H Lymph % (Auto) 15.0 L Wake % (Auto) 8.1 Eos % (Auto) 1.5 Baso % (Auto) 0.7 Absolute Neuts (auto) 7.4 Absolute Lymphs (auto) 1.50 Nucleated RBC % 0 D-Dimer Quant (PE/DVT) 0.82 H* Sodium 135 L Potassium 4.0 Chloride 107 Carbon Dioxide 24.0 Anion Gap 4 L BUN 12 Creatinine 0.64 Estim Creat Clear Calc 190.22 Est GFR (MDRD) Af Amer 132 Est GFR (MDRD) Non-Af 109 BUN/Creatinine Ratio 18.7 Glucose 104 Calcium 9.7 Magnesium 1.9 Total Bilirubin 0.30 Direct Bilirubin 0.11 AST 13 L ALT 23 Alkaline Phosphatase 119 H Troponin I High Sens 5 Total Protein 8.0 Albumin 3.7 Globulin 4.3 H Lipase 39 TSH 2.08 Radiography Diagnostic Testing: Clinical Impression(s) from Imaging Studies Chest X-Ray 06/15/23 07:08 IMPRESSION: No radiographic evidence of acute cardiopulmonary disease. Electronically Signed: Mendoza Calloway MD at 7:34 EST , Chest x-ray as interpreted by the emergency medicine physician reveals no acute infiltrate pneumothorax pleural effusion or widening of the mediastinum Discharge Plan Triage Chief Complaint: Chest Pain ED Provider: Jose Antonio Dawkins Dx/Rx/DC Orders Clinical Impression: Nonspecific chest pain, Sinus tachycardia, Glover's esophagus determined by biopsy, Hypertension Instructions: Understanding Tachycardia, ED Chest Pain, Uncertain Cause Prescriptions: No Action naproxen sodium [Aleve] 220 mg capsule 220 mg PO BID PRN (Reason: pain) Fiber Gummies 2 gram tablet,chewable 2 g PO BID diltiazem HCl 120 mg capsule,extended release 24hr 120 mg PO QHS Qty: 90 3RF pantoprazole [Protonix] 40 mg tablet,delayed release (DR/EC) 40 mg PO DAILY Qty: 90 3RF lisinopril 40 mg tablet See Rx Instructions .ROUTE .COMPLEX Qty: 90 1RF Dose Instruction: TAKE 1 TABLET BY MOUTH EVERY DAY Rx Instructions: TAKE 1 TABLET BY MOUTH EVERY DAY escitalopram oxalate 10 mg tablet See Rx Instructions .ROUTE .COMPLEX Qty: 90 0RF Dose Instruction: TAKE 1 TABLET BY MOUTH EVERY DAY Rx Instructions: TAKE 1 TABLET BY MOUTH EVERY DAY Primary Care Provider: Amrita Zhao Referrals: Amrita Zhao MD [Primary Care Provider] -
[2023-06-15 08:12] LABS: AST(SGOT) 13 U/L (15-37); Alanine Aminotransfer ALT/SGPT 23 U/L (13-56); Albumin, Serum 3.7 g/dL (3.2-5.0); Alkaline Phosphatase 119 U/L (45-117); Anion Gap 4 (5-15); BUN 12 mg/dL (7-18); BUN/Creat Ratio 18.7 RATIO (10-20); Bilirubin, Direct 0.11 mg/dL (0.00-0.30); Calcium,Total 9.7 mg/dL (8.5-10.1); Chloride 107 mmol/L (98-107); Creatinine, Serum 0.64 mg/dL (0.55-1.02); EST Glomerular Filtration Rate 109 mL/min (>60); Est Glom Filt Rate - Afr Amer 132 mL/min (>60); Estimated Creatinine Clearance 190.22 ml/min; Globulin 4.3 g/dL (2.2-4.2); Glucose 104 mg/dL (74-106); Lipase 39 U/L (13-75); Magnesium 1.9 mg/dL (1.6-2.6); Sodium Level 135 mmol/L (136-145); Thyroid Stim Hormone (TSH) 2.08 uIU/mL (0.358-3.74); Troponin-I HS 5 pg/mL (3.0-54.0)
[2023-06-15 08:15] LABS: D-Dimer Quantitative (DVT/PE) 0.82 FEU/ug/m (0.27-0.49)
--- NOTE | 2023-06-15 08:32 | CT_ITS ---
STUDY: CTA CHEST REASON FOR EXAM: Female, 38 years old. Chest pain with elevated d-dimer RADIATION DOSAGE (If Supplied By Facility): CTDIvol = ( 13.76 ) mGy, DLP = ( 548.68 ) mGycm TECHNIQUE: The examination was performed with the intravenous administration of IV 100mL Isovue-370. Post-processing of the angiographic images was performed, with multiplanar reformation and 3D reconstruction. Individualized dose optimization techniques were used for this CT. COMPARISON: None. FINDINGS: The right lobe of the thyroid gland is enlarged and heterogeneous in appearance. Correlation with thyroid ultrasound recommended. Normal enhancement of the main pulmonary artery and right and left pulmonary arteries. Normal enhancement of the bilateral peripheral pulmonary arteries. There is no demonstrated pulmonary embolism. Normal thoracic aorta and visualized great vessels. There is no demonstrated aortic dissection. Normal heart and pericardium. Normal mediastinum. Normal hilar regions. Normal visualized trachea and bronchi. The lungs are well expanded. Normal pulmonary parenchyma. Normal pleura. Normal chest wall structures. Normal osseous structures. Prior cholecystectomy. CT/CTA Chest W/WO Contrast IMPRESSION: No evidence of pulmonary embolism. The right lobe of the thyroid gland is enlarged and heterogeneous in appearance. Correlation with thyroid ultrasound is recommended. Electronically Signed: Agapito Whitney MD at 9:34 EST ,
[2023-06-15 09:47] VITALS: BP 134/77; PULSE 72; RESP 16; O2SAT 98
== END 2023-06-15 10:00 | disposition home or self-care (01) ==
PROVIDERS: Emergency Medicine; Emergency Provider Emergency Medicine; PCP Internal Medicine; Visit Provider Emergency Medicine
DX: R07.9 Chest pain, unspecified (principal); Z87.891 Personal history of nicotine dependence; R00.0 Tachycardia, unspecified; K22.70 Barrett's esophagus without dysplasia; I10 Essential (primary) hypertension; Z79.899 Other long term (current) drug therapy; K21.9 Gastro-esophageal reflux disease without esophagitis; F32.A Depression, unspecified; F41.9 Anxiety disorder, unspecified
CPT/HCPCS: 71046; 71275; 80048; 80076; 83690; 83735; 84443; 84484; 85025; 85379; 93005; 99283; J7030; Q9967; A4216

== ENCOUNTER → 2023-07-05 | Outpatient (CLI) | payer OTHER, SELFPAY ==
--- NOTE | 2023-07-05 11:45 | US_ITS ---
ACR Level 3 findings have been noted. An addendum which confirms receipt of the report will follow. EXAM: US SOFT TISSUES HEAD AND NECK, THYROID CLINICAL INDICATION: Abnormal CTA TECHNIQUE: Greyscale and color doppler imaging was performed of the thyroid gland. COMPARISON: CTA chest, 06/15/2023 FINDINGS: LEFT THYROID LOBE: The left thyroid lobe measures 4.6 x 1.9 x 1.5 cm. Left-sided thyroid nodule measuring 0.8 cm. This nodule is cystic or nearly completely cystic. TI-RADS points: 0. TI-RADS category: TR1. This nodule is benign and no FNA or follow-up is necessary. Left-sided thyroid nodule measuring 0.4 cm. This nodule is cystic or nearly completely cystic. TI-RADS points: 0. TI-RADS category: TR1. This nodule is benign and no FNA or follow-up is necessary. Homogeneous echotexture with normal vascularity. RIGHT THYROID LOBE: The right thyroid lobe measures 6.2 x 3.3 x 2.5 cm. Right-sided thyroid nodule measuring 4.3 cm. This nodule is solid or almost completely solid, hypoechoic, [id number], smoothly marginated and contains no echogenic foci. TI-RADS points: 4. TI-RADS category: TR4. This nodule is moderately suspicious. Recommend FNA evaluation. Right-sided thyroid nodule measuring 1.3 cm. This nodule is solid or almost completely solid, hyperechoic or isoechoic, [id number], ill-defined and contains no echogenic foci. TI-RADS points: 3. TI-RADS category: TR3. This nodule is mildly suspicious but no FNA or follow-up is necessary given the small size of this nodule. ISTHMUS: The thyroid isthmus measures 0.6 cm. No thyroid nodules are present. US/Thyroid IMPRESSION: The 4.3 cm right-sided thyroid nodule is moderately suspicious. FNA is recommended. The remainder of the nodules identified as detailed above require no further follow-up. Electronically Signed: Yves Vaca DO at 21:32 EST ,
== END | disposition home or self-care (01) ==
LOC: US 11:45
PROVIDERS: PCP Internal Medicine; Referring Provider Internal Medicine; Visit Provider Internal Medicine
DX: E04.9 Nontoxic goiter, unspecified (principal)
CPT/HCPCS: 76536

== ENCOUNTER → 2023-07-18 | Outpatient (CLI) | payer OTHER, SELFPAY ==
--- NOTE | 2023-07-18 09:00 | FLU_PTH ---
PATHOLOGY RESULTS PATIENT: AFIA LYNCH LOC: [facility] U#:[id number] AGE/SX: 38/F ROOM: RE07/18/[address]: Dr. Alexx Briseno MD : 1985 BED: DIS: 07/18/2023 SPEC #: [id number] RECD: 07/18/23 15:09 STATUS: AMANDA JAYNE #: [id number] NISHA: 07/18/23 09:[address]: Alexx Briseno DEPT: CYTOLOGY RECD BY: Rani El ENTERED: 07/19/23 07:06 SP TYPE: Fluid OTHR DR: Dr. Amrita Zhao MD Tissues: Thyroid gland, NOS Thyroid gland, NOS Procedures: Special Stain Group II Surgery Specimen Level IV Cytospin Fluid Cytology Other HEADER OPERATION: Fine needle aspiration right thyroid nodule PRE-OP DIAGNOSIS: Right thyroid nodule TISSUE SUBMITTED: A - Right thyroid nodule fluid, B - Right thyroid nodule x4 slides DIAGNOSIS CYTOLOGY A. Fine needle aspiration, right thyroid nodule (cytospin and cell block); Consistent with benign follicular nodule with cystic change (Downs Category II) See comment. B. Fine needle aspiration, right thyroid nodule (smears); Consistent with benign follicular nodule (Downs Category II) The specimen is hypocellular. See comment. AM: 07/20/23 COMMENT A&B. The Downs System for thyroid diagnostic categorization was used in the evaluation of this case. CYTOLOGY STUDY Slides are reviewed. CYTOLOGY GROSS A - Received is 35 ml of red cloudy fluid labeled with the patient's name and and designated per the requisition as right thyroid nodule. Submitted for cytology preparation including cell block. B - Received are four smears labeled with the patient's name and designated per the requisition as right thyroid nodule. Submitted for staining. / jono 07/19/2023 TC:5 CPT: 80292, 70069,35426
--- OUTSIDE RECORDS SUMMARY | 2023-07-18 20:38 | XMS RPT_ITS | CCD ---
Author Name Unknown Address [address] [place] [id number] Organization [facility] Results Test Name Value Interpretation Reference Range Facil ity Progress note 03-03-2021 Note Date & Type Note Facility 03-03-2021 Note HNO ID: [id number] Author: Sonia Oropeza APRN.CNM Service: ? Author Type: [employer] Type: Progress Notes Filed: 03/03/2021 5:26 PM [...] external genitalia normal, normal Bartholin's glands, urethra, [place]'s glands, no vulvar lesions, no cervical lesions, [...] or sooner as needed Sonia Oropeza APRN.CRISTY [facility] Progress note 12-03-2020 Note Date & Type Note Facility 12-03-2020 Note HNO ID: [id number] Author: Rajiv Oh APRN.RADIOGRAPHER MAMMOGRAPHER Service: ? Author Type: Nurse Practitioner Type: [...] establish appointment with PCP today will contact [facility] to see if she is able to become established with a primary care provider through [facility]. Patient was educated on supportive therapies.. Patient [...] plan of care. (more content not included)... [facility] Clinical Note 10-11-2019 Note Date & [...] Locations *1: This test was performed at: [facility], [address] [place] [address] (ID) Summary Purpose Family History No Family History Records FoundNo Family History Records Found Advance Directives No Advanced Directives Records FoundNo Advanced Directives Records Found Additional Source Comments INFORMATION SOURCE (unrecogn ized section and content) DATE CREATED AUTHOR AUTHOR'S ORGANIZ ATION 07/01/2021 [facility] FOR RECORDS PERTAINING TO PATIENTS WHO [...] BE BASED ON THE PRIMARY CLINICAL RECORDS. [employer] provides no warranty or guarantee of the accuracy or completeness of information in this document.
== END | disposition home or self-care (01) ==
LOC: LABSPEC 15:24
PROVIDERS: PCP Internal Medicine; Referring Provider Surgery; Visit Provider Surgery
DX: E04.1 Nontoxic single thyroid nodule (principal)
CPT/HCPCS: 88108; 88161; 88305; 88313

== ENCOUNTER → 2023-08-18 | Outpatient (CLI) | payer OTHER, SELFPAY ==
--- NOTE | 2023-08-18 15:31 | BI_ITS ---
MAMMOGRAPHY - BILATERAL SCREENING REASON FOR EXAM: Female, 38 years old. Routine annual screening examination. PERTINENT HISTORY: Non-contributory. TECHNIQUE: Digital bilateral breast abhishek (3D mammographic acquisition) in the CC and MLO projections. 2-D mediolateral oblique (MLO) and craniocaudad (CC) views of both breasts were obtained. CAD: Full Field Digital Mammography with Computer Added Detection was performed. COMPARISON: Comparison is made with prior study dated January 31, 2018 and November 13, 2013. FINDINGS: Breast Composition: There are scattered areas of fibroglandular density. There are no dominant masses or suspicious calcifications. There is a 3.9 mm nodular density in the upper deep lateral portion of the left breast. Correlation with ultrasound is recommended. No other significant abnormalities are identified. BI/SCRN MAMM (CAD)W/ABHISHEK BILAT IMPRESSION: 3.9 mm nodular density in the deep upper lateral aspect of the left breast. Correlation with ultrasound is recommended. ASSESSMENT CATEGORY: BIRADS Category 0: Incomplete. Need additional imaging evaluation. A letter regarding these results will be sent to the patient by the facility within 30 days. Approximately 10% of breast cancers are not detected by mammography. A normal mammogram should not delay biopsy of a clinically suspicious abnormality. [id number] Electronically Signed: Agapito Whitney MD at 8:19 EDT ,
== END | disposition home or self-care (01) ==
LOC: OPBI 15:31
PROVIDERS: PCP Internal Medicine; Referring Provider Obstetrics & Gynecology; Visit Provider Obstetrics & Gynecology
DX: Z12.31 Encounter for screening mammogram for malignant neoplasm of breast (principal)
CPT/HCPCS: 77063; 77067

== ENCOUNTER → 2023-08-22 | Outpatient (CLI) | payer OTHER, SELFPAY ==
--- NOTE | 2023-08-22 07:51 | US_ITS ---
STUDY: ULTRASOUND BREAST - LEFT REASON FOR EXAM: Female, 38 years old. Abnormal screening mammogram of the left breast. TECHNIQUE: Axial and longitudinal images of the LEFT breast were performed with a high resolution ultrasound transducer. # OF IMAGES: 36 COMPARISON: Comparison is made with prior mammogram dated August 18, 2023. FINDINGS: LEFT Breast: There is a 4 mm x 4 mm x 4 mm septated cyst at the 2:00 position of the breast at 3 cm from the nipple. US/Breast Limited Unilateral IMPRESSION: 4 mm x 4 mm x 4 mm cyst at the 2:00 position of the breast at 3 cm from the nipple. ASSESSMENT CATEGORY: BIRADS Category 2: Benign. A letter regarding these results will be sent to the patient by the facility within 30 days. Electronically Signed: Agapito Whitney MD at 13:24 EDT ,
--- NOTE | 2023-08-22 08:25 | BI_ITS ---
MAMMOGRAPHY - UNILATERAL DIAGNOSTIC: LEFT BREAST REASON FOR EXAM: Female, 38 years old. Abnormal screening mammogram. PERTINENT HISTORY: Non-contributory. TECHNIQUE: Compression spot views of the left breast in the mediolateral oblique and craniocaudad projections were obtained. CAD: Full Field Digital Mammography with Computer Added Detection was performed. COMPARISON: Comparison is made with prior mammogram dated August 18, 2023. FINDINGS: Breast Composition: There are scattered areas of fibroglandular density. There are no dominant masses or suspicious calcifications. No other significant abnormalities are identified. BI/DIAG MAMM W/CAD, UNILAT IMPRESSION: Negative unilateral diagnostic mammogram. Yearly followup mammogram recommended. (A) ASSESSMENT CATEGORY: BIRADS Category 2: Benign. A letter regarding these results will be sent to the patient by the facility within 30 days. Approximately 10% of breast cancers are not detected by mammography. A normal mammogram should not delay biopsy of a clinically suspicious abnormality. Electronically Signed: Agapito Whitney MD at 9:19 EDT ,
== END | disposition home or self-care (01) ==
LOC: OPUS 07:50
PROVIDERS: PCP Internal Medicine; Referring Provider Obstetrics & Gynecology; Visit Provider Obstetrics & Gynecology
DX: N60.02 Solitary cyst of left breast (principal)
CPT/HCPCS: 76642; 77065

== ENCOUNTER → 2023-10-20 | Outpatient (CLI) | payer OTHER, SELFPAY ==
[2023-10-20 16:47] LABS: Absolute Lymphocyte Count 1.87 X10^3/uL (0.83-4.51); Absolute Neutrophil Count 8.3 X10^3/uL (2.0-7.7); Basophil# 0.06 X10^3/uL; Basophil% 0.5 % (0-1); Eosinophil# 0.51 X10^3/uL; Eosinophils% 4.4 % (0-5); Hematocrit 33.7 % (37-47); Hemoglobin 10.1 g/dL (12.0-15.0); Lymphocyte # 1.87 X10^3/ul (0.83-4.51); Mean Corpuscular Hgb 24.2 pg (27.0-32.0); Mean Corpuscular Volume 80.8 fL (81-99); Mean Platelet Vol. 11.5 fl (6.2-12.0); Monocyte# 0.81 X10^3/uL; Monocyte% 6.9 % (0-10); NRBC Flagged by Analyzer 0 % (0-5); Neutrophil # 8.32 X10^3/uL (2.7-7.7); Neutrophil % 71.2 % (47-70); Platelet Count 354 K/mm3 (150-450); RBC Distribution Width CV 16.1 % (11.6-14.6); RBC Distribution Width SD 46.6 fl (35.1-43.9); Red Blood Count 4.17 M/mm3 (4.2-5.4); White Blood Count 11.7 K/mm3 (4.4-11.0)
[2023-10-20 16:58] LABS: ALB/GLOB Ratio 0.9 RATIO (0.9-2.4); AST(SGOT) 21 U/L (15-37); Alanine Aminotransfer ALT/SGPT 29 U/L (13-56); Albumin, Serum 3.6 g/dL (3.2-5.0); Alkaline Phosphatase 129 U/L (45-117); Anion Gap 7 (5-15); BUN 14 mg/dL (7-18); BUN/Creat Ratio 20.1 RATIO (10-20); Calcium,Total 9.2 mg/dL (8.5-10.1); Chloride 105 mmol/L (98-107); Cholesterol 161 mg/dL (200); EST Glomerular Filtration Rate 99 mL/min (>60); Est Glom Filt Rate - Afr Amer 120 mL/min (>60); Globulin 4.2 g/dL (2.2-4.2); Glucose 126 mg/dL (74-106); High Density Lipoprotein 48 mg/dL; Potassium 3.7 mmol/L (3.5-5.1); Protein, Total 7.8 g/dL (6.4-8.2); Sodium Level 137 mmol/L (136-145); Triglycerides 95 mg/dL; Very Low Density Lipoprotein 19 mg/dL (5-40)
[2023-10-21 16:40] LABS: Ferritin 10 ng/mL (8-252); Iron 35 ug/dL (50-170); Iron Binding Capacity,Total 423 ug/dL (250-450)
== END | disposition home or self-care (01) ==
LOC: BIMLAB 15:29
PROVIDERS: PCP Internal Medicine; Visit Provider Internal Medicine
DX: I10 Essential (primary) hypertension (principal); D64.9 Anemia, unspecified
CPT/HCPCS: 36415; 80053; 80061; 82728; 83540; 83550; 85025

== ENCOUNTER → 2024-04-13 | Outpatient (CLI) | payer OTHER, SELFPAY ==
[2024-04-13 12:08] LABS: Absolute Lymphocyte Count 1.44 X10^3/uL (0.83-4.51); Basophil# 0.07 X10^3/uL; Basophil% 0.7 % (0-1); Eosinophil# 0.16 X10^3/uL; Eosinophils% 1.7 % (0-5); Hematocrit 35.8 % (37-47); Hemoglobin 10.7 g/dL (12.0-15.0); Lymphocyte # 1.44 X10^3/ul (0.83-4.51); Lymphocyte % 14.9 % (19-41); Mean Corp Hgb Conc 29.9 g/dL (32-36); Mean Corpuscular Hgb 25.5 pg (27.0-32.0); Mean Corpuscular Volume 85.2 fL (81-99); Mean Platelet Vol. 11.4 fl (6.2-12.0); Monocyte# 0.87 X10^3/uL; NRBC Flagged by Analyzer 0 % (0-5); Neutrophil # 7.04 X10^3/uL (2.7-7.7); Neutrophil % 72.7 % (47-70); Platelet Count 291 K/mm3 (150-450); RBC Distribution Width CV 15.8 % (11.6-14.6); RBC Distribution Width SD 48.4 fl (35.1-43.9); White Blood Count 9.7 K/mm3 (4.4-11.0)
[2024-04-13 13:14] LABS: Anion Gap 7 (5-15); BUN 13 mg/dL (7-18); BUN/Creat Ratio 23.6 RATIO (10-20); Calcium,Total 9.4 mg/dL (8.5-10.1); Chloride 105 mmol/L (98-107); Creatinine, Serum 0.55 mg/dL (0.55-1.02); EST Glomerular Filtration Rate 130 mL/min (>60); Est Glom Filt Rate - Afr Amer 157 mL/min (>60); Glucose 99 mg/dL (74-106); Potassium 4.3 mmol/L (3.5-5.1); Sodium Level 138 mmol/L (136-145); T4 Free Direct 1.01 ng/dL (0.76-1.46)
[2024-04-13 13:17] LABS: Ferritin 16 ng/mL (8-252); Iron 36 ug/dL (50-170); Iron Binding Capacity,Total 386 ug/dL (250-450)
[2024-04-13 13:51] LABS: Vitamin B12 242 pg/mL (211-911)
== END | disposition home or self-care (01) ==
LOC: BIMLAB 08:53
PROVIDERS: PCP Internal Medicine; Referring Provider Internal Medicine; Visit Provider Internal Medicine
DX: D64.9 Anemia, unspecified (principal); I10 Essential (primary) hypertension; R00.0 Tachycardia, unspecified
CPT/HCPCS: 36415; 80048; 82607; 82728; 83540; 83550; 84439; 84443; 85025

== ENCOUNTER → 2024-07-05 | Outpatient (CLI) | payer OTHER, SELFPAY ==
--- NOTE | 2024-07-05 13:49 | US_ITS ---
PROCEDURE: ULTRASOUND THYROID REASON FOR EXAM: Nodule TECHNIQUE: Thyroid ultrasound COMPARISON: No relevant prior. FINDINGS: Right thyroid lobe measures 6.6 x 3.8 x 2.6 cm. Left thyroid lobe measures 5.3 x 1.9 x 1.2 cm.. Isthmus thickness is 0.5 cm. Thyroid Size: Enlarged right lobe. Background Echotexture: Heterogeneous, bilateral lobes. Thyroid Nodules: Bilateral. RIGHT NODULE: Midpole, mixed cystic and solid, 5.0 x 3.6 x 2.5 cm, well-circumscribed, wider than tall, no calcifications, isoechoic, TR 2. NODULE: Inferior pole, mixed cystic and solid, 1.3 x 1.1 x 0.9 cm, well- circumscribed, wider than tall, no calcifications, isoechoic, TR 2. LEFT NODULE: Midpole, mixed cystic and solid, 0.6 x 0.6 x 0.5 cm, well-circumscribed, rounded, no calcifications, isoechoic and anechoic, TR 2. NODULE: Inferior pole, cystic, 0.6 x 0.4 x 0.3 cm, wider than tall, well- circumscribed, no calcifications, anechoic, TR 1. NODULE: Midpole, mixed cystic and solid, 0.5 x 0.5 x 0.4 cm, well-circumscribed, no calcifications, hypoechoic, TR 3. US/Thyroid IMPRESSION: 1. TR 2 category nodules in the right and left thyroid lobes. No FNA warrante d. 2. TR 3 category micronodule in the left midpole. No FNA warranted. 3. Benign cystic nodule in the left inferior pole. 4. Follow-up ultrasound recommended in 12 months. Reading Location: [place] [address]
== END | disposition home or self-care (01) ==
LOC: US 13:45
PROVIDERS: PCP Internal Medicine; Referring Provider Surgery; Visit Provider Surgery
DX: E04.2 Nontoxic multinodular goiter (principal); E04.1 Nontoxic single thyroid nodule
CPT/HCPCS: 76536

== ENCOUNTER → 2024-07-23 | Outpatient (CLI) | payer OTHER, SELFPAY ==
[2024-07-23 15:35] LABS: Absolute Neutrophil Count 6.1 X10^3/uL (2.0-7.7); Basophil# 0.06 X10^3/uL; Basophil% 0.7 % (0-1); Eosinophil# 0.26 X10^3/uL; Eosinophils% 2.8 % (0-5); Hematocrit 35.7 % (37-47); Hemoglobin 11.1 g/dL (12.0-15.0); Lymphocyte % 20.7 % (19-41); Mean Corp Hgb Conc 31.1 g/dL (32-36); Mean Corpuscular Hgb 26.1 pg (27.0-32.0); Mean Corpuscular Volume 83.8 fL (81-99); Mean Platelet Vol. 11.1 fl (6.2-12.0); Monocyte% 8.7 % (0-10); NRBC Flagged by Analyzer 0 % (0-5); Neutrophil # 6.09 X10^3/uL (2.7-7.7); Neutrophil % 66.3 % (47-70); Platelet Count 347 K/mm3 (150-450); RBC Distribution Width SD 45.5 fl (35.1-43.9); Red Blood Count 4.26 M/mm3 (4.2-5.4); White Blood Count 9.2 K/mm3 (4.4-11.0)
[2024-07-23 16:25] LABS: Ferritin 19 ng/mL (22-378); Iron 33 ug/dL (50-170); Iron Binding Capacity,Total 396 ug/dL (250-450); Iron Binding Capacity,Unsat 363 ug/dL (228-428); Vitamin B12 454 pg/mL (180-914)
== END | disposition home or self-care (01) ==
LOC: BIMLAB 14:01
PROVIDERS: PCP Internal Medicine; Referring Provider Internal Medicine; Visit Provider Internal Medicine
DX: D64.9 Anemia, unspecified (principal)
CPT/HCPCS: 36415; 82607; 82728; 83540; 83550; 85025

== ENCOUNTER → 2024-08-16 | Outpatient (CLI) | payer OTHER, SELFPAY | END | disposition home or self-care (01) | LOC: SL 19:52 | PROVIDERS: PCP Internal Medicine; Referring Provider Internal Medicine; Visit Provider Internal Medicine | DX: G47.10 Hypersomnia, unspecified (principal); D64.9 Anemia, unspecified; I10 Essential (primary) hypertension; R00.0 Tachycardia, unspecified; F41.9 Anxiety disorder, unspecified; F32.A Depression, unspecified | CPT/HCPCS: 95811 ==

== ENCOUNTER → 2024-09-12 | Outpatient (CLI) | payer OTHER, SELFPAY | END | disposition home or self-care (01) | LOC: PSN 08:06 | PROVIDERS: PCP Internal Medicine; Referring Provider Internal Medicine; Visit Provider Internal Medicine | DX: R09.02 Hypoxemia (principal) | CPT/HCPCS: 94060; 94726; 94729 ==

== ENCOUNTER → 2024-09-13 | Outpatient (CLI) | payer OTHER, SELFPAY | END | disposition home or self-care (01) | LOC: SL 12:52 | PROVIDERS: PCP Internal Medicine; Visit Provider Internal Medicine | DX: G47.33 Obstructive sleep apnea (adult) (pediatric) (principal) ==

== ENCOUNTER → 2024-10-26 | Outpatient (CLI) | payer OTHER, SELFPAY ==
--- OUTSIDE RECORDS SUMMARY | 2024-10-26 11:28 | XMS RPT_ITS | CCD ---
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 Bijan Chapin Primary Care Provider Dr. Bijan Chapin Referring Provider 1(330) Violeta TANK INSPECTOR, TANK INSPECTOR-C Erin Michael Attending Provider 1(08 05) Dr. Fortunato Foster Attending Provider 1(330) Dr. Fortunato Foster Other Provider 1(330) Dr. Bijan Chapin Primary Care Provider Dr. Bijan Chapin Referring Provider 1(330) Dr. Fortunato Foster Attending Provider 1(330) Dr. Fortunato Foster Other Provider 1(330) Violeta TANK INSPECTOR, TANK INSPECTOR-C Erin Michael Attending Provider 1(08 05) Dr. René Zhao Attending Provider 1(330)2 Dr. Bijan Chapin Primary Care Provider Dr. Bijan Chapin Referring Provider 1(330) Dr. Fortunato Foster Attending Provider 1(330) Dr. René Zhao Primary Care Provider 1(33 0) Dr. René Zhao Attending Provider 1(330)2 Dr. René Zhao Referring Provider 1(330)2 Dr. Fortunato Foster Other Provider 1(330) Dr. René Zhao Primary Care Provider 1(33 0) Dr. René Zhao Attending Provider 1(330)2 Dr. René Zhao Referring Provider 1(330)2 Dr. Fortunato Foster Attending Provider 1(330) Dr. Fortunato Foster Other Provider 1(330)- Dr. Alexx Briseno Attending Provider Dr. René Zhao Primary Care Provider [phone] Dr. René Zhao Referring Provider 1(330)2 Dr. Fortunato Foster Attending Provider [phone] Dr. René Zhao Attending Provider 1(330)2 Pavel HAMPTON, René Hutchinson Primary Care Provider [phone] OLEGHE, EFEWONGBE B Primary Care Unavailable GEO MURPHY Referring Unavailable OLEGHE, EFEWONGBE B Primary Care Unavailable OLEGHE, EFEWONGBE B Primary Care Unavailable Pavel HAMPTON, Dr. Crowe Primary Care Provider Pavel HAMPTON, Dr. Crowe Attending Provider 1(33 0) Pavel HAMPTON, Dr. Crowe Referring Provider 1(33 0) Kristin ARGUETA, Dr. Bucio Attending Provider Finn HAMPTON, Dr. Coffey Attending Provider Finn HAMPTON, Dr. Coffey Referring Provider Pavel HAMPTON, Dr. Crowe Primary Care Provider Pavel HAMPTON, Dr. Crowe Referring Provider 1(33 0) Pavel HAMPTON, Dr. Crowe Attending Provider 1(33 0) Pavel HAMPTON, Dr. Crowe Primary Care Provider Pavel HAMPTON, Dr. Crowe Referring Provider [phone] Olemistye, Efewongbe Primary Care Unavailable Oleghe, Efewongbe Attending Unavailable Pavel, Efewongbe Referring Unavailable Alexx Briseno Attending Unavailable Alexx Briseno Referring Unavailable Oleghe, Efewongbe Primary Care Unavailable Oleghe, Efewongbe Primary Care Unavailable Oleghe, Efewongbe Attending Unavailable Oleghe, Efewongbe Referring Unavailable Oleghe, Efewongbe Primary Care Unavailable Oleghe, Efewongbe Attending Unavailable Oleghe, Efewongbe Referring Unavailable Oleghe, Efewongbe Primary Care Unavailable Oleghe, Efewongbe Attending Unavailable Oleghe, Efewongbe Referring Unavailable Oleghe, Efewongbe Primary Care Unavailable Oleghe, Efewongbe Attending Unavailable Oleghe, Efewongbe Primary Care Unavailable Oleghe, Efewongbe Attending Unavailable Oleghe, Efewongbe Referring Unavailable Oleghe, Efewongbe Primary Care Unavailable Oleghe, Efewongbe Attending Unavailable Oleghe, Efewongbe Referring Unavailable Oleghe, Efewongbe Primary Care Unavailable FriendFortunato Attending Unavailable Oleghe, Efewongbe Referring Unavailable Oleghe, Efewongbe Attending Unavailable Oleghe, Efewongbe Referring Unavailable Oleghe, Efewongbe Primary Care Unavailable Oleghe, Efewongbe Primary Care Unavailable Oleghe, Efewongbe Referring Unavailable Alexx Briseno Attending Unavailable Oleghe, Efewongbe Primary Care Unavailable Oleghe, Efewongbe Attending Unavailable Dr. Ba Shelton DO Attending Provider [phone] Allergies Allergy Classification Reported Allergen(s) Allergy Type Date of Onset Reaction(s) Facility (18 sources) hydroCHLOROthiazide; Translations: [HYDROCHLOROTHIAZIDE] Drug Allergy 12-10-19 15 Intolerance [facility] (18 sources) Metoprolol; Translations: [METOPROLOL] Drug Allergy 12-10-19 15 Intolerance [facility] (12 sources) buPROPion Drug Allergy 04-07-20 23 Other [facility] Comment on above: Suicidal Thoughts (1 source) buPROPion Drug Allergy 08-16-19 [facility] (1 source) hydroCHLOROthiazide Drug Allergy 08-16-19 [facility] (1 source) Metoprolol Drug Allergy 08-16-19 [facility] Medications Current Medications Medication Drug Class(es) Dates Sig (Normalized) Sig (Original) [id number] 200 actuat albuterol 0.09 mg/actuat metered dose inhaler (3 sources) beta2-Adrenergic Agonist Start: 03-04-2024 take 2 puff(s) by inhalation every four hours as needed for wheezing albuterol HFA (PROVENTIL HFA, VENTOLIN HFA) 90 mcg/actuation inhaler Inhale 2 Puffs as instructed every 4 hours as needed for wheezing/shortnes s of breath. 6.7 g 03/04/2024 Active 24 hr dilTIAZem hydrochloride 240 mg extended release oral capsule (20 sources) Calcium Channel Fabi Start: 04-13-2024 take 1 capsule by mouth every twenty-four hours at bedtime Diltiazem Hcl 240 mg capsule,extended release 24hr Active 240 mg PO AT BEDTIME April 13, 2024 9:58am Start: 02-09-2024 take 1 capsule by mo uth once daily at bedtime, then take 1 capsule by mouth every twenty-four hours dilTIAZem CD (CARDIZEM CD, CARTIA XT) 180 mg 24 hr capsule Take 180 mg by mouth daily at bedtime. 02/09/2024 Active Start: 10-20-2023 End: 04-13-2024 take 1 capsule by mouth every twenty-four hours at bedtime Diltiazem Hcl 180 mg capsule,extended release 24hr Discontinued 180 mg PO AT BEDTIME February 09, 2024 3:33pm April 13, 2024 9:59am Start: 02-24-2022 End: 10-20-2023 take 1 capsule by mouth every twenty-four hours at bedtime Diltiazem Hcl 120 mg capsule,extended release 24hr Discontinued 120 mg PO AT BEDTIME July 18, 2023 5:53pm October 20, 2023 3:20pm doxycycline hyclate 100 mg oral tablet (1 source) Tetracycline-class Drug Start: 03-04-2024 End: 03-11-2024 take 1 tablet by mouth twice daily doxycycline (VIBRA-TABS) 100 mg tablet Take 1 tablet by mouth two times a day for 7 days. 14 tablet 03/04/2024 03/11/2024 Active escitalopram 10 mg oral tablet (20 sources) Serotonin Reuptake Inhibitor Start: 07-09-2022 End: 09-24-2024 take 1 tablet by mouth once daily Escitalopram Oxalate 10 mg tablet Active 0 .ROUTE .COMPLEX September 24, 2024 1:20pm TAKE 1 TABLET BY MOUTH EVERY DAY Start: 05-13-2022 End: 07-09-2022 take 0.5 tablet by mouth once daily, then take 1 tablet by mouth once daily Escitalopram Oxalate (Lexapro) 10 mg tablet Discontinued 10 mg PO DAILY June 07, 2022 11:05am July 09, 2022 4:12pm Take 1/2 tablet daily x 2 weeks then increase to 1 tablet daily. inulin 2000 mg chewable tablet (13 sources) Start: 05-13-2022 take 1 tablet by mouth twice daily Inulin (Fiber Gummies) 2 gram tablet,chewable Active 2 g PO TWICE A DAY May 13, 2022 1:00am lisinopril 40 mg oral tablet (20 sources) Angiotensin Converting Enzyme Inhibitor Start: 05-04-2023 take 1 tablet by mouth once daily Lisinopril Active 0 .ROUTE .COMPLEX May 04, 2023 2:43pm TAKE 1 TABLET BY MOUTH EVERY DAY Start: 05-04-2023 take 1 tablet by sidney once daily Lisinopril Active 0 .ROUTE .COMPLEX May 04, 2023 1:43pm TAKE 1 TABLET BY MOUTH EVERY DAY Start: 10-20-2018 End: 10-10-2024 take 1 tablet by mouth once daily Lisinopril 40 mg tablet Active 0 .ROUTE .COMPLEX October 10, 2024 12:53pm TAKE 1 TABLET BY MOUTH EVERY DAY naproxen sodium 220 mg oral capsule (13 sources) Nonsteroidal Anti-inflammatory Drug Start: 05-13-2022 take 1 capsule by mouth twice daily as needed for pain Naproxen Sodium (Aleve) 220 mg capsule Active 220 mg PO TWICE A DAY as needed for pain May 13, 2022 1:00am pantoprazole 40 mg delayed release oral tablet (20 sources) Proton Pump Inhibitor Start: 06-26-2021 End: 10-15-2024 take 1 tablet by mouth once daily Pantoprazole (Protonix) 40 mg tablet,delayed release (DR/EC) Active 40 mg PO DAILY October 15, 2024 6:10pm Start: 05-04-2021 End: 06-26-2021 Pantoprazole (Protonix) 40 m g tablet,delayed release (DR/EC) Discontinued 40 mg PO TWICE A DAY May 18, 2021 2:03pm June 26, 2021 3:39pm Take two times a day for eight weeks then once a day. Start: 02-24-2021 End: 05-04-2021 take 1 tablet by mouth once daily Pantoprazole 20 mg tablet,delayed release (DR/EC) Discontinued 0 .ROUTE .COMPLEX March 18, 2021 5:21pm May 04, 2021 10:01am TAKE 1 TAB BY MOUTH DAILY predniSONE 10 mg oral tablet (2 sources) Start: 03-26-2024 End: 04-01-2024 predniSONE (DELTASONE) 10 mg tablet Indications: Wheezing Take by mouth 6 pills on day 1, 5 pills on day 2, 4 pills on day 3, 3 pills on day 4, 2 pills on day 5, 1 pill on day 6 21 tablet 03/26/2024 04/01/2024 Active Start: 03-04-2024 End: 03-08-2024 take 2 tablets by mouth once daily at mealtime predniSONE (DELTASONE) 20 mg tablet Take 2 tablets by mouth once daily for 4 days. Take daily with food. 8 tablet 03/04/2024 03/08/2024 Active Completed/Discontinued Medications Medication Drug Class(es) Dates Sig (Normalized) Sig (Original) dicyclomine hydrochloride 20 mg oral tablet (14 sources) Anticholinergic Start: 03-29-2021 End: 06-26-2021 take 1 tablet by mouth twice daily Dicyclomine 20 mg tablet Discontinued 20 mg PO TWICE A DAY March 29, 2021 1:00am June 26, 2021 3:35pm famotidine 40 mg oral tablet (17 sources) Histamine-2 Receptor Antagonist Start: 11-26-2020 End: 05-04-2021 Famotidine 40 mg tablet Discontinued 40 mg PO NEEDED as needed for GERD January 23, 2021 12:00am May 04, 2021 10:01am ferrous sulfate 325 mg oral tablet (6 sources) Start: 10-21-2023 End: 07-23-2024 take 1 tablet by mouth every other day Ferrous Sulfate 325 mg (65 mg iron) tablet Discontinued 325 mg PO every other day October 21, 2023 12:00am July 23, 2024 1:28pm LORazepam 0.5 mg oral tablet (20 sources) Benzodiazepine Start: 05-13-2022 End: 07-09-2022 take 1 tablet by mouth twice daily as needed for anxiety Lorazepam 0.5 mg tablet Discontinued 0.5 mg PO TWICE A DAY as needed for Anxiety 60 May 13, 2022 7:33pm July 09, 2022 3:45pm Start: 10-20-2018 End: 05-13-2022 take 1 tablet by mouth twice daily as needed for anxiety Lorazepam 1 MG tablet Discontinued 1 mg PO TWICE DAILY NEEDED as needed for Anxiety October 20, 2018 12:00am May 13, 2022 7:36pm End: 03-26-2024 take 1 tablet by mouth every six hours as needed LORazepam (ATIVAN) 1 mg tablet Take 1 mg by mouth every 6 hours as needed. 03/26/2024 Discontinued sucralfate 1000 mg oral tablet (17 sources) Aluminum Complex Start: 01-23-2021 End: 06-26-2021 take 1 tablet by mouth at bedtime as needed for gastroesophageal reflux disease Sucralfate 1 gram tablet Discontinued 1 g PO before meals and at bedtime as needed for GERD January 23, 2021 12:00am June 26, 2021 3:32pm Problems Problem Classification Problem Date Documented Da te Episodic/Chronic Abdominal pain (14 sources) Abdominal pain; Translations: [Unspecified abdominal pain] 03-29-2021 Episodic Anxiety disorders (20 sources) Mixed anxiety and depressive disorder; Translations: [Anxiety disorder, unspecified] Chronic Cardiac dysrhythmias (20 sources) Tachycardia; Translations: [Tachycardia, unspecified] Onset: 4 10-11-2022 Episodic Deficiency and other anemia (13 sources) Anemia; Translations: [Anemia, unspecified] 04-13-2024 Episodic Deficiency and other anemia (1 source) Anemia, unspecified; Translations: [Anemia, unspecified] Onset: 5 Episodic Diverticulosis and diverticulitis (20 sources) Diverticulitis; Translations: [Diverticulitis of intestine, part unspecified, without perforation or abscess without bleeding] 04-07-2020 Chronic Esophageal disorders (20 sources) Glover's esophagus; Translations: [Glover's esophagus without dysplasia] Chronic Essential hypertension (20 sources) Hypertensive disorder; Translations: [Essential (primary) hypertension] Onset: 4 Chronic Immunizations and screening for infectious disease (9 sources) Needs influenza immunization; Translations: [Encounter for immunization] Onset: 4 04-13-2024 Episodic Inflammation; infection of eye (except that caused by tuberculosis or sexually transmitteddisease) (14 sources) Conjunctivitis; Translations: [Unspecified conjunctivitis] 11-18-2014 Episodic Nonspecific chest pain (11 sources) Chest pain; Translations: [Chest pain, unspecified] 06-15-2023 Episodic Other gastrointestinal disorders (14 sources) Dysphagia; Translations: [Dysphagia, unspecified] 01-23-2021 Episodic Other gastrointestinal disorders (14 sources) History of diverticulitis; Translations: [Personal history of other diseases of the digestive system] 06-26-2021 Episodic Other gastrointestinal disorders (17 sources) Constipation; Translations: [Constipation, unspecified] 03-15-2023 Episodic Other gastrointestinal disorders (9 sources) Constipation, unspecified; Translations: [Constipation, unspecified] Episodic Other lower respiratory disease (1 source) Lower respiratory tract infection; Translations: [Unspecified acute lower respiratory infection] 03-04-2024 Episodic Other lower respiratory disease (3 sources) Wheezing; Translations: [Wheezing] 03-04-2024 Episodic Other lower respiratory disease (3 sources) Cough; Translations: [Subacute cough] Onset: 4 03-26-2024 Episodic Other lower respiratory disease (1 source) Wheezing; Translations: [Wheezing] Onset: 4 Episodic Other lower respiratory disease (3 sources) Hypoxemia; Translations: [Hypoxemia] 08-23-2024 Episodic Other lower respiratory disease (1 source) Hypoxemia; Translations: [Hypoxemia] Onset: 5 Episodic Other nutritional; endocrine; and metabolic disorders (13 sources) Body mass index 40+ - severely obese; Translations: [Morbid (severe) obesity due to excess calories] 05-13-2022 Chronic Other nutritional; endocrine; and metabolic disorders (5 sources) Morbid (severe) obesity due to excess calories; Translations: [Morbid obesity] Chronic Other nutritional; endocrine; and metabolic disorders (12 sources) Obesity; Translations: [Obesity, unspecified] 03-30-2023 Chronic Other nutritional; endocrine; and metabolic disorders (4 sources) Obesity, unspecified; Translations: [Obesity, unspecified] 03-30-2023 Chronic Other nutritional; endocrine; and metabolic disorders (10 sources) Morbid obesity; Translations: [Morbid (severe) obesity due to excess calories] 06-29-2023 Chronic Residual codes; unclassified (10 sources) Hypersomnia; Translations: [Hypersomnia, unspecified] 07-23-2024 Chronic Residual codes; unclassified (1 source) Obstructive sleep apnea (adult) (pediatric); Translations: [Obstructive sleep apnea (adult) (pediatric)] Onset: 5 Chronic Residual codes; unclassified (1 source) Hypersomnia, unspecified; Translations: [Hypersomnia, unspecified] Onset: Chronic Residual codes; unclassified (1 source) Sleep apnea; Translations: [Sleep apnea, unspecified] 10-26-2024 Chronic Residual codes; unclassified (12 sources) Family history of malignant neoplasm of pancreas; Translations: [Family history of malignant neoplasm of digestive organs] 03-30-2023 Episodic Comment on above: Mother from espinoza creatic cancer. Residual codes; unclassified (4 sources) Family history of malignant neoplasm of digestive organs; Translations: [Family history of malignant neoplasm of gastrointestinal tract] 03-30-2023 Episodic Thyroid disorders (20 sources) Thyroid nodule; Translations: [Nontoxic single thyroid nodule] Onset: 5 07-06-2023 Chronic Comment on above: Patient is a 38-year -old female, euthyroid from an endocrine standpoint, who presents for incidentally appreciated thyroid nodularity particularly right thyroid nodularity. She is diagnosed with a 4.3 cm TI-RADS 4 lesion after formal ultrasound was performed. She does not appear to be very symptomatic despite the large size of this nodule. Still, we had a discussion around the prevalence of thyroid nodularity, the TI-RADS grading system, and the recommendation to pursue fine-needle aspiration biopsy for her largest right thyroid nodule. She excepted this recommendation and the procedure was undertaken in uncomplicated fashion during today's visit. Complete details are given in the procedures section of this note. Wound care instructions were reviewed with patient following the procedure Patient is a 38-year -old female, euthyroid from an endocrine standpoint, who presents for incidentally appreciated thyroid nodularity particularly right thyroid nodularity. She is diagnosed with a 4.3 cm TI-RADS 4 lesion after formal ultrasound was performed. She does not appear to be very symptomatic despite the large size of this nodule. Still, we had a discussion around the prevalence of thyroid nodularity, the TI-RADS grading system, and the recommendation to pursue fine-needle aspiration biopsy for her largest right thyroid nodule. She excepted this recommendation and the procedure was undertaken in uncomplicated fashion during today's visit. Complete details are given in the procedures section of this note. Wound care instructions were reviewed with patient following the procedureUpdate 08/15/2024: Patient is now 39-year-old female who remains euthyroid from an endocrine standpoint and presents for surveillance of her thyroid. She reports some increase complaints with a semiproductive cough but otherwise denies development of compressive symptomology. I shared with her that she has exhibited some growth of her dominant right sided thyroid nodule. Specifically, when applying her dimensions to the MALLORY change in volume thyroid calculator I find an increase of 57%. Yet, this is not to be taken in isolation as radiology is also gone from characterizing this nodule is a TI-RADS 4 lesion to a TI-RADS 2 lesion. Based on my review of the imaging and comparing these studies this is almost exclusively due to the development of some cystic changes within this nodule. I shared with patient that this decreases the likelihood of this nodule representing a cancerous entity and combining this with her history of negative cytopathology from her FNA last year I do not recommend pursuing repeat FNA today. In addition to patient's thyroid nodule I performed a comparative volumetric analysis of patient's right thyroid lobe and found an increase of approximately 28% [id number]. I suggested that with this growth patient may ultimately require a thyroid operation to address developing compressive symptomology and her risk for further problems. With the current discrepancy in the size of the right versus left thyroid lobes I believe she may require only a right thyroid lobectomy with isthmusectomy but further suggested that I would get a CT of her neck to better evaluate the thyroid relationship to the surrounding anatomy (looking for substernal extension, tracheal deviation, impingement on esophagus, ). Part of our discussion also included patient's recent weight gain and she wished to know how any potential surgery for her abdomen would impact her thyroid. I suggested that a significant weight loss would certainly decrease her perioperative risk for any potential thyroid surgery and would be thereby seen as beneficial. We briefly discussed medical versus surgical approaches to weight loss. From the information she shared it sounds as though patient would be a reasonable candidate for either track. Unclassified (1 source) Subacute cough; Translations: [Subacute cough] Onset: Results Test Name Value Interpretation Reference Range Facility Surgery Visit Reporton 08-15 Surgery Visit Report [facility] [address] [place], [place] [address] OFFICE VISIT Date of Service: 08/15/24 MR#: [id number] Acct: [id number] Name: EDNA WAN Rep #: [id number] : 1985 Provider: Dr. Alexx flores MD Age/Sex: 39/F Location: [facility] Status: Signed Intake Vital Signs 04/13/24 08:00 07/23/24 13:29 08/15/24 09:05 Height 5 ft 8 in 5 ft 8 in 5 ft 8 in Weight: 374 lb 371 lb BMI 56.8 56.4 BP 142/90 H 114/73 Blood Pressure Location Lt brachial Rt radial Position Sitting Sitting Respiration 18 17 Pulse 82 100 Pulse Source Monitor Monitor Temp 97 F L 96.2 F L Temp Source Temporal Temporal Pulse Oximetry (%) 98 97 Oxygen Delivery Method room air room air Intake Visit Reasons: 1 yr thyroid recall Chief Complaint: 1 year thyroid recall Allergies hydrochlorothiazide Allergy (Verified 08/15/24 09:07) INCREASED ANXIETY bupropion Adverse Reaction (Unknown, Verified 08/15/24 09:07) Other metoprolol Adverse Reaction (Verified 08/15/24 09:07) RAPID HEART RATE, INCREASED ANXIETY Medications ???Medication ???Instructions ???Recorded ???Confirmed ???Type inulin 2 gram chewable tablet 2 g PO BID 05/13/22 08/15/24 Histo ry (Fiber Gummies) naproxen sodium 220 mg capsule 220 mg PO BID PRN pain 05/13/22 History (Aleve) pantoprazole 40 mg tablet,delayed 40 mg PO DAILY #90 tabs 11/03/23 08/15/24 Rx release (Protonix) diltiazem HCl 240 mg 240 mg PO QHS #90 caps 04/13/24 Rx capsule,extended release 24 hr lisinopril 40 mg tablet See Rx Instructions .Route 4 08/15/24 Rx .COMPLEX #90 tabs escitalopram oxalate 10 mg tablet See Rx Instructions .Route 08/15/24 Rx .COMPLEX #90 tabs PFSH Medical History Hypersomnolence Flu vaccine need Anemia Thyroid nodule Morbid obesity Thyroid enlargement History of hiatal hernia Former smoker Family history of pancreatic cancer Obesity Tachycardia Morbid obesity with BMI of 45.0-49.9, adult Anxiety and depression Diverticulosis History of gallstones Seasonal allergies Seborrheic keratosis Glover's esophagus determined by biopsy Wears glasses Depression Anxiety Migraine headache History of diverticulitis Gastric reflux Non-smoker Hypertension Abdominal pain Surgical History History of colonoscopy History of esophagogastroduodenoscopy (EGD) History of tonsillectomy and adenoidectomy Hx laparoscopic cholecystectomy Family History Grandfather Colon cancer Mother Cancer Pancreatic cancer Grandmother Cancer Hypertension Diverticulosis Social History Smoking Status: Former smoker alcohol intake: never substance use type: does not use caffeine: Yes what type of physical activity do you participate in: walking frequency: 3-4 times per week seatbelt use: always do you feel safe at home: Yes additional social history: - Mike HPI HPI HPI: Patient is now a 39-year-old female who presents for follow-up of a diagnosis of bilateral thyroid nodularity. Patient last seen 07/18/2023. She reports today initially denying any interval health updates, but then shares that she is pending a sleep study tomorrow. She states she recently met with Dr. Zhao and concluded that a sleep study was in order given her experience with snoring. She goes on to deny awakening generally feeling tired nor any awareness of apnea while sleeping. She does report that sometimes she awakens coughing. Regarding her experience with coughing she states that since she felt ill in February she has felt her cough settled in her chest area. This cough is productive of tiny pearls in the morning. She also notes that laughing seems to precipitate coughing episodes. Mrs. Wan denies any new shortness of breath or swallowing difficulties. Lastly, she does update that she has experienced weight gain. She is unable to quantify this gain but she suggest that she has struggled to get her appetite under control. She suggests that she has had prior conversations around weight loss medications but she was determined to not be a strong candidate for some medications because of her family history of pancreatic cancer in her mother first diagnosed at age 43 or 44. Patient completed interval thyroid ultrasound on 07/05/2024 which showed TI-RADS 2 category nodules of the right and left thyroid lobes. Based on this TI-RADS rating no FNA was warranted. Additionally radiology noted the presence of a micronodule in the left midpole rated TI-RADS 3 but once again no FNA is warranted. Lastl (more content not included)... Normal [facility] Absolute lymphocyte countOrd ered By: [place]ens[place]ia Zhao on 07-23-2024 Lymphocytes Auto (Unsp spec) [#/Vol] 1.90 10*3/uL 0.83-4.51 [facility] Absolute neutrophil countOrd ered By: [facility], [place] King[place] on 07-23-2024 Neutrophils (Bld) [#/Vol] 6.1 10*3/uL 2.0-7.7 [facility] Automated lymphocyte count a s percentage of total leukocytesOrdered By: paulkilleensaskia Kingdanis on 07-23-2024 Lymphocytes/100 WBC Auto (Unsp spec) 20.7 % 19-41 [facility] Basophil percentageOrdered B y: paulkilleensaskia Kingdanis on 07-23-2024 Basophils/100 WBC (Bld) 0.7 % 0-1 [facility] CBC W/Diff, Automatedon 07-07 Absolute Lymph 1.90 X10 3/uL Normal 0.83-4.51 [facility] Comment on above: Performed By: #### L 100.0100, L503.0106, L503.6550, L503.6030 #### [facility] [address] [place], [address] Absolute Neut 6.1 X10 3/uL Normal 2.0-7.7 [facility] Comment on above: Performed By: #### L 100.0100, L503.0106, L503.6550, L503.6030 #### [facility] [address] [place], [address] Basophils/100 WBC (Bld) 0.7 % Normal 0-1 [facility] Comment on above: Performed By: #### L 100.0100, L503.0106, L503.6550, L503.6030 #### [facility] [address] [place], [address] Eosinophils/100 WBC (Bld) 2.8 % Normal 0-5 [facility] Comment on above: Performed By: #### L 100.0100, L503.0106, L503.6550, L503.6030 #### [facility] [address] [place], [address] Erythrocyte distribution width (RBC) [Ratio] 15.0 % High 11.6-14.6 [facility] Comment on above: Performed By: #### L 100.0100, L503.0106, L503.6550, L503.6030 #### [facility] [address] [place], [address] Hematocrit (Bld) [Volume fraction] 35.7 % Low 37-47 [facility] Comment on above: Performed By: #### L 100.0100, L503.0106, L503.6550, L503.6030 #### [facility] [address] [place], [address] Hemoglobin (Bld) [Mass/Vol] 11.1 g/dL Low 12.0-15.0 [facility] Comment on above: Performed By: #### L 100.0100, L503.0106, L503.6550, L503.6030 #### [facility] [address] [place], [address] IG% 0.800 Normal 0.0-0.9 [facility] Comment on above: Result Comment: IG% - Immature Granulocytes (promyelocytes, myelocytes and metamyelocytes) > 1% indicates that a LEFT SHIFT is Present. Performed By: #### L 100.0100, L503.0106, L503.6550, L503.6030 #### [facility] [address] [place], [address] Lymphocytes/100 WBC (Bld) 20.7 % Normal 19-41 [facility] Comment on above: Performed By: #### L 100.0100, L503.0106, L503.6550, L503.6030 #### [facility] [address] [place], [address] MCH (RBC) [Entitic mass] 26.1 pg Low 27.0-32.0 [facility] Comment on above: Performed By: #### L 100.0100, L503.0106, L503.6550, L503.6030 #### [facility] [address] [place], [address] MCHC (RBC) [Mass/Vol] 31.1 g/dL Low 32-36 [facility] Comment on above: Performed By: #### L 100.0100, L503.0106, L503.6550, L503.6030 #### [facility] [address] [place], [address] MCV (RBC) [Entitic vol] 83.8 fL Normal 81-99 [facility] Comment on above: Performed By: #### L 100.0100, L503.0106, L503.6550, L503.6030 #### [facility] [address] [place], [address] Monocytes/100 WBC (Bld) 8.7 % Normal 0-10 [facility] Comment on above: Performed By: #### L 100.0100, L503.0106, L503.6550, L503.6030 #### [facility] [address] [place], [address] Neutrophils/100 WBC (Bld) 66.3 % Normal 47-70 [facility] Comment on above: Performed By: #### L 100.0100, L503.0106, L503.6550, L503.6030 #### [facility] [address] [place], [address] Nucleated RBC (Bld) [#/Vol] 0 10*3/uL Normal 0-5 [facility] Comment on above: Performed By: #### L 100.0100, L503.0106, L503.6550, L503.6030 #### [facility] [address] [place], [address] Platelet mean volume (Bld) [Entitic vol] 11.1 fL Normal 6.2-12.0 [facility] Comment on above: Performed By: #### L 100.0100, L503.0106, L503.6550, L503.6030 #### [facility] [address] [place], [address] Platelets (Bld) [#/Vol] 347 10*3/uL Normal 150-450 [facility] Comment on above: Performed By: #### L 100.0100, L503.0106, L503.6550, L503.6030 #### [facility] [address] [place], [address] RBC (Bld) [#/Vol] 4.26 10*6/uL Normal 4.2-5.4 [facility] Comment on above: Performed By: #### L 100.0100, L503.0106, L503.6550, L503.6030 #### [facility] [address] [place], [address] RDW SD 45.5 fl High 35.1-43.9 [facility] Comment on above: Performed By: #### L 100.0100, L503.0106, L503.6550, L503.6030 #### [facility] [address] [place], [place], [id number] (230) WBC (Bld) [#/Vol] 9.2 10*3/uL Normal 4.4-11.0 [facility] Comment on above: Performed By: #### L 100.0100, L503.0106, L503.6550, L503.6030 #### [facility] [address] [place], [place], [id number] Calculated total iron bindin g capacityOrdered By: Nakiakilleensaskia Zhao on 07-23-2024 Total Iron Binding Capacity 396 ug/dL 250-450 [facility] Eosinophil percentageOrdered By: René Zhao on 07-23-2024 Eosinophils/100 WBC (Bld) 2.8 % 0-5 [facility] Erythrocyte distribution wid th ratioOrdered By: [facility] [place] Zhao on 07-23-2024 Erythrocyte distribution width (RBC) [Ratio] 15.0 % High 11.6-14.6 [facility] Erythrocyte distribution wid th standard deviationOrdered By: paulkilleensaskia Zhao on 07-23-2024 Erythrocyte distribution width (RBC) [Entitic vol] 45.5 fL High 35.1-43.9 [facility] Erythrocyte distribution width (RBC) [Ratio] 45.5 fl High 35.1-43.9 [facility] Ferritinon 07-23-2024 Ferritin [Mass/Vol] 19 ng/mL Low 22-378 [facility] Comment on above: Performed By: #### L 100.0100, L503.0106, L503.6550, L503.6030 ####[facility] [address] [place], [place], [id number] Hematocrit Auto (Bld) [Volum e fraction]Ordered By: René Zhao on 07-23-2024 Hematocrit (Bld) [Volume fraction] 35.7 % Low 37-47 [facility] Hemoglobin measurementOrdere d By: René Zhao on 07-23-2024 Hemoglobin (Bld) [Mass/Vol] 11.1 g/dL Low 12.0-15.0 [facility] Immature granulocytes/100 WB C Auto (Bld)Ordered By: René Zhao on 07-23-2024 Immature granulocytes/100 WBC (Bld) 0.800 % 0.0-0.9 [facility] Comment on above: IG% - Immature Granu locytes (promyelocytes, myelocytes and metamyelocytes) > 1% indicates that a LEFT SHIFT is Present. Internal Medicine Office [place] 07-23-2024 Internal Medicine Office Visit [facility] [address] [place] [address] [place] [address] OFFICE VISIT Date of Service: 07/23/24 MR#: [id number] Acct: [id number] Name: EDNA WAN Rep #: [id number] : 1985 Provider: Dr. René de leon MD Age/Sex: 39/F Location: [facility] Status: Signed Intake Vital Signs 04/13/24 08:00 07/23/24 13:29 Height 5 ft 8 in 5 ft 8 in Weight: 374 lb BMI 56.8 BP 142/90 H Blood Pressure Location Lt brachial Position Sitting Respiration 18 Pulse 82 Pulse Source Monitor Temp 97 F L Temp Source Temporal Pulse Oximetry (%) 98 Oxygen Delivery Method room air Intake Visit Reasons: 3 M FU Chief Complaint: Follow-up chronic conditions. Doctor Of Radiology Required: No Is patient in pain?: No Allergies hydrochlorothiazide Allergy (Verified 07/23/24 13:23) INCREASED ANXIETY bupropion Adverse Reaction (Unknown, Verified 07/23/24 13:23) Other metoprolol Adverse Reaction (Verified 07/23/24 13:23) RAPID HEART RATE, INCREASED ANXIETY Medications ???Medication ???Instructions ???Recorded ???Confirmed ???Type inulin 2 gram chewable tablet 2 g PO BID 05/13/22 07/23/24 Histo ry (Fiber Gummies) naproxen sodium 220 mg capsule 220 mg PO BID PRN pain 05/13/22 History (Aleve) pantoprazole 40 mg tablet,delayed 40 mg PO DAILY #90 tabs 11/03/23 07/23/24 Rx release (Protonix) diltiazem HCl 240 mg 240 mg PO QHS #90 caps 04/13/24 Rx capsule,extended release 24 hr lisinopril 40 mg tablet See Rx Instructions .Route 4 07/23/24 Rx .COMPLEX #90 tabs escitalopram oxalate 10 mg tablet See Rx Instructions .Route 07/23/24 Rx .COMPLEX #90 tabs PFSH Medical History (Updated 07/23/24 @ 14:[address] René Zhao MD) Hypersomnolence Flu vaccine need Anemia Thyroid nodule Morbid obesity Thyroid enlargement History of hiatal hernia Former smoker Family history of pancreatic cancer Obesity Tachycardia Morbid obesity with BMI of 45.0-49.9, adult Anxiety and depression Diverticulosis History of gallstones Seasonal allergies Seborrheic keratosis Glover's esophagus determined by biopsy Wears glasses Depression Anxiety Migraine headache History of diverticulitis Gastric reflux Non-smoker Hypertension Abdominal pain Surgical History History of colonoscopy History of esophagogastroduodenoscopy (EGD) History of tonsillectomy and adenoidectomy Hx laparoscopic cholecystectomy Family History Grandfather Colon cancer Mother Cancer Pancreatic cancer Grandmother Cancer Hypertension Diverticulosis Social History Smoking Status: Former smoker alcohol intake: never substance use type: does not use caffeine: Yes what type of physical activity do you participate in: walking frequency: 3-4 times per week seatbelt use: always do you feel safe at home: Yes additional social history: - Mike HPI HPI Chief Complaint: Follow-up chronic conditions. Details: EDNA WAN, is a 39 F who presents to the office today for follow-up of her chronic conditions. Also has some concerns. She states that she has been waking up with some noise at night when she sleeps. Loud enough to wake her up. Snores. Gets on average 8 hours of sleep and does not always feel well rested. History of hypertension, current BMI 56.8. At her last visit, she was started on iron/ferrous sulfate due to concern for iron deficiency anemia. She however states that she stopped taking it due to feeling unwell after each dose. Has been taking an kuxb-kft-[id number] supplement. Vitamin D was also low, she however states that she has not been taking her vitamin D supplement consistently. Recent changes to her blood pressure medications due to persistently elevated blood pressure. She states that her home readings have been better and on average below 120 systolic and diastolic has ranged in the 70s. No chest pain, palpitation or shortness of breath. Other chronic conditions are stable. ROS Const Constitutional: No body ache, chills, excessive sweating, fatigue, fever(s), frequent falls, headache(s), snoring, weakness, sleep problems or change in appetite Eyes Eyes: No blurry vision, change in vision, floaters, visual disturbances, eye pain or Light sensitivity ENT ENT: No abnormal hearing, ear or mastoid pain, tinnitus, balance problems, nasal congestion, headache(s), neck pain or sore throat Resp Respiratory: Positive for cough and chest congestion; No excessive phlegm production, pain on inspiration, shortness of breath, snoring or wheezing Cardio Cardiology: No (more content not included)... Normal [facility] Iron (Unsp spec) [Mass/Mass] Ordered By: René Zhao on 07-23-2024 Iron [Mass/Vol] 33 ug/dL Low 50-170 [facility] Iron measurement (mass/mass) Ordered By: René Zhao on 07-23-2024 Iron (Unsp spec) [Mass/Mass] 33 ug/dL Low 50-170 [facility] Iron saturation [Mass fracti on]Ordered By: René Zhao on 07-23-2024 Iron Saturation 8.0 % Low 13-59 [facility] Iron+Iron Binding Capacityon 07-23-2024 Iron [Mass/Vol] 33 ug/dL Low 50-170 [facility] Comment on above: Performed By: #### L 100.0100, L503.0106, L503.1114, L503.6030 ####[facility] [address] [place], [address] IRON SATURATION 8.0 Low 13-59 [facility] Comment on above: Performed By: #### L 100.0100, L503.0106, L503.6550, L503.6030 ####[facility] [address] [place], [address] TIBC 396 ug/dL Normal 250-450 [facility] Comment on above: Performed By: #### L 100.0100, L503.0106, L503.6550, L503.6030 ####[facility] [address] [place], [address] UIBC 363 ug/dL Normal 228-428 [facility] Comment on above: Performed By: #### L 100.0100, L503.0106, L503.6550, L503.6030 ####[facility] [address] [place], [address] L503.0106on 07-23-2024 Cobalamin (Vitamin B12) [Mass/Vol] 454 pg/mL Normal 180-914 [facility] Comment on above: Performed By: #### L 100.0100, L503.0106, L503.6550, L503.6030 #### [facility] [address] [place], [address] Lymphocytes Auto (Unsp spec) [#/Vol]Ordered By: René Zhao on 07-23-2024 Lymphocytes (Bld) [#/Vol] 1.90 10*3/uL 0.83-4.51 [facility] Lymphocytes/100 WBC Auto (Un sp spec)Ordered By: René Zhao on 07-23-2024 Lymphocytes/100 WBC (Bld) 20.7 % 19-41 [facility] MCV (mean corpuscular volume ) determinationOrdered By: René Zhao on 07-23-2024 MCV (RBC) [Entitic vol] 83.8 fL 81-99 [facility] Mean corpuscular hemoglobin (MCH) determinationOrdered By: René Zhao on 07-23-2024 MCH (RBC) [Entitic mass] 26.1 pg Low 27.0-32.0 [facility] Mean corpuscular hemoglobin concentration (MCHC) determinationOrdered By: René Zhao on 07-23-2024 MCHC (RBC) [Mass/Vol] 31.1 g/dL Low 32-36 [facility] Mean platelet volume determi nationOrdered By: René Zhao on 07-23-2024 Platelet mean volume (Bld) [Entitic vol] 11.1 fL 6.2-12.0 [facility] Monocyte percentageOrdered B y: René Zhao on 07-23-2024 Monocytes/100 WBC (Bld) 8.7 % 0-10 [facility] Neutrophil percentageOrdered By: René Zhao on 07-23-2024 Neutrophils/100 WBC (Bld) 66.3 % 47-70 [facility] No Panel InformationOrdered By: René Zhao on 07-23-2024 Unsaturated Iron Binding Capacity 363 ug/dL 228-428 [facility] Nucleated red blood cell per centageOrdered By: René Zhao on 07-23-2024 Nucleated RBC/100 WBC (Bld) [Ratio] 0 % 0-5 [facility] Platelet countOrdered By: Alvaro Zhao on 07-23-2024 Platelets (Bld) [#/Vol] 347 10*3/uL 150-450 [facility] RBC Auto (Bld) [#/Vol]Ordere d By: René Zhao on 07-23-2024 RBC (Bld) [#/Vol] 4.26 10*6/uL 4.2-5.4 [facility] Serum or plasma ferritin tommy surement (mass/volume)Ordered By: René Zhao on 07-23-2024 Ferritin [Mass/Vol] 19 ng/mL Low 22-378 [facility] Serum or plasma iron saturat ion measurement (mass fraction)Ordered By: René Zhao on 07-23-2024 Iron saturation [Mass fraction] 8.0 % Low 13-59 [facility] Vitamin B12 ser/plasOrdered By: René Zhao on 07-23-2024 Cobalamin (Vitamin B12) [Mass/Vol] 454 pg/mL 180-914 [facility] White blood cell (WBC) count Ordered By: René Zhao on 07-23-2024 WBC (Bld) [#/Vol] 9.2 10*3/uL 4.4-11.0 [facility] Thyroidon 07-05-2024 Thyroid [facility] [address] [place], [place] [id number] Thyroid MR#: [id number] Acct: [id number] Name: EDNA WAN Rep #: [id number] : 1985 F 39 From: Jayme Padilla MD PCP: Dr. René Zhao MD Status: REG CLI Study: Thyroid Date of Exam: 07/05/24 Exam# [id number] Ordering Dr: Alexx Briseno MD PROCEDURE: ULTRASOUND THYROID REASON FOR EXAM: Nodule TECHNIQUE: Thyroid ultrasound COMPARISON: No relevant prior. FINDINGS: Right thyroid lobe measures 6.6 x 3.8 x 2.6 cm. Left thyroid lobe measures 5.3 x 1.9 x 1.2 cm.. Isthmus thickness is 0.5 cm. Thyroid Size: Enlarged right lobe. Background Echotexture: Heterogeneous, bilateral lobes. Thyroid Nodules: Bilateral. RIGHT NODULE: Midpole, mixed cystic and solid, 5.0 x 3.6 x 2.5 cm, well-circumscribed, wider than tall, no calcifications, isoechoic, TR 2. NODULE: Inferior pole, mixed cystic and solid, 1.3 x 1.1 x 0.9 cm, well-circumscribed, wider than tall, no calcifications, isoechoic, TR 2. LEFT NODULE: Midpole, mixed cystic and solid, 0.6 x 0.6 x 0.5 cm, well-circumscribed, rounded, no calcifications, isoechoic and anechoic, TR 2. NODULE: Inferior pole, cystic, 0.6 x 0.4 x 0.3 cm, wider than tall, well-circumscribed, no calcifications, anechoic, TR 1. NODULE: Midpole, mixed cystic and solid, 0.5 x 0.5 x 0.4 cm, well-circumscribed, no calcifications, hypoechoic, TR 3. US/Thyroid IMPRESSION: 1. TR 2 category nodules in the right and left thyroid lobes. No FNA warranted. 2. TR 3 category micronodule in the left midpole. No FNA warranted. 3. Benign cystic nodule in the left inferior pole. 4. Follow-up ultrasound recommended in 12 months. Reading Location: [place] [address] CC: Dr. René Zhao MD; Dr. Alexx Briseno MD Local Bulk Driver: Signed Normal [facility] Gastroenterology Visit Repor ton 05-14-2024 Gastroenterology Visit Report [facility] Gastroenterology [facility] [place] [address] OFFICE VISIT Date of Service: 05/14/24 MR#: [id number] Acct: [id number] Name: EDNA WAN Rep #: [id number] : 1985 Provider: Fortunato Foster DO Age/Sex: 39/F Location: [facility] Status: Signed Intake Vital Signs 04/07/23 06:48 04/13/24 08:00 Height 5 ft 8 in 5 ft 8 in Intake Visit Reasons: 1 YR FU Allergies hydrochlorothiazide Allergy (Verified 04/13/24 07:57) INCREASED ANXIETY bupropion Adverse Reaction (Unknown, Verified 04/13/24 07:57) Other metoprolol Adverse Reaction (Verified 04/13/24 07:57) RAPID HEART RATE, INCREASED ANXIETY Medications ???Medication ???Instructions ???Recorded ???Confirmed ???Type inulin 2 gram chewable tablet 2 g PO BID 05/13/22 05/14/24 History (Fiber Gummies) naproxen sodium 220 mg capsule 220 mg PO BID PRN pain 05/13/22 05/14/24 History (Aleve) ferrous sulfate 325 mg (65 mg 325 mg PO Q OTHER DAY #90 tabs 10/21/23 05/14/24 Rx iron) tablet pantoprazole 40 mg tablet,delayed 40 mg PO DAILY #90 tabs 11/03/23 05/14/24 Rx release (Protonix) escitalopram oxalate 10 mg tablet See Rx Instructions .Route 03/14/24 05/14/24 Rx .COMPLEX #90 tabs diltiazem HCl 240 mg 240 mg PO QHS #90 caps 04/13/24 05/14/24 Rx capsule,extended release 24 hr lisinopril 40 mg tablet See Rx Instructions .Route 04/18/24 05/14/24 Rx .COMPLEX #90 tabs PFSH Medical History (Updated 04/13/24 @ 09:[address] René Zhao MD) Flu vaccine need Anemia Thyroid nodule Morbid obesity Thyroid enlargement History of hiatal hernia Former smoker Family history of pancreatic cancer Obesity Tachycardia Morbid obesity with BMI of 45.0-49.9, adult Anxiety and depression Diverticulosis History of gallstones Seasonal allergies Seborrheic keratosis Glover's esophagus determined by biopsy Wears glasses Depression Anxiety Migraine headache History of diverticulitis Gastric reflux Non-smoker Hypertension Abdominal pain Surgical History History of colonoscopy History of esophagogastroduodenoscopy (EGD) History of tonsillectomy and adenoidectomy Hx laparoscopic cholecystectomy Family History Grandfather Colon cancer Mother Cancer Pancreatic cancer Grandmother Cancer Hypertension Diverticulosis Social History Smoking Status: Former smoker alcohol intake: never substance use type: does not use caffeine: Yes what type of physical activity do you participate in: walking frequency: 3-4 times per week seatbelt use: always do you feel safe at home: Yes additional social history: - Mike HPI HPI Details: EDNA WAN, is a 39 F who presents to the office today for follow up. FH mother pancreatic cancer.??? *BGI established 01.23.21 with loose stools, abdominal pain, bloating, heartburn, dysphagia; onset November with improvement with use of famotidine/sucralfate. History of diverticulitis. Irregular BM pattern,???Start aloe vera.?EGD 02.16.21???LA Grade A esophagitis, metaplasia +; gastritis; small hiatal hernia; duodenitis, Luc gland hyperplasia. H.Pylori neg??? OV 02.24.21 overall improvement of symptoms but continues to have some bloating and indigestion.??? Start PPI, Carafate for six weeks??? [facility] ED 03.29.21 with LLQ abdominal pain with history of diverticulitis. Workup not concerning and discharged with bentyl.?CT abd/pel without contrast???diverticulosis. Exam without acute/chronic finding.??? OV 04.24.21 improvement of symptoms with use of bentyl. OK to stop famotidine and Carafate; continue PPI for Glover???s??? OV 06.26.21 continue Fiber, PPI. ??? OV 12.18.21 continue fiber, PPI.?EGD 03.01.22???irregular Zline 39cm; small hiatal hernia. Metaplasia neg.??? OV 03.15.23 doing well; she had an isolated incident with a new food. Continues with PPI and fiber chew tablets. ?EGD 04.07.23???irregular Zline; gastritis; duodenitis, Luc gland hyperplasia. Metaplasia neg.??? Contact 04.16.23 with EGD results. Will discuss reduction of PPI to 20mg at [place].??? OV 01.2.24- Pt doing well since last visit. GERD under control with Pantoprazole 40mg qd. Denies dysphagia or any other abdominal pain. BM are still good with use of FiberChoice. No other concerns. OV 05.14.24 pt reports that she is feeling well overall and denies GI symptoms of concern at this time. Pt continues with pantoprazole 40mg daily. ROS Const Constitutional: No fatigue, fever(s) or we (more content not included)... Normal [facility] Absolute neutrophil countOrd ered By: René Zhao on 04-13-2024 Neutrophils (Bld) [#/Vol] 7.0 10*3/uL 2.0-7.7 [facility] Basic Metabolic Profile (BMP )on 04-13-2024 BUN/CRE 23.6 RATIO High 10-20 [facility] Comment on above: Performed By: #### L 500.2500, L506.0400, L501.9520, L100.0100 ####[facility] [address] [place], [address] CA,Total 9.4 mg/dL Normal 8.5-10.1 [facility] Comment on above: Performed By: #### L 500.2500, L506.0400, L501.9520, L100.0100 ####[facility] [address] [place], [address] Chloride [Moles/Vol] 105 mmol/L Normal 98-107 [facility] Comment on above: Performed By: #### L 500.2500, L506.0400, L501.9520, L100.0100 ####[facility] [address] [place], [address] CO2 [Moles/Vol] 25.0 mmol/L Normal 21.0-32.0 [facility] Comment on above: Performed By: #### L 500.2500, L506.0400, L501.9520, L100.0100 ####[facility] [address] [place], [address] Creatinine [Mass/Vol] 0.55 mg/dL Normal 0.55-1.02 [facility] Comment on above: Result Comment: The validity of the calculated GFR GFRAA in patients over 70 years has not been determined. Clinical correlation is essential. Performed By: #### L 500.2500, L506.0400, L501.9520, L100.0100 ####[facility] [address] [place], [address] EST GFR - AA 157 mL/min Normal >60 [facility] Comment on above: Result Comment: Afri can Green[place]ic GFR Calc Performed By: #### L 500.2500, L506.0400, L501.9520, L100.0100 ####[facility] [address] [place], [address] GAP 7 Normal 5-15 [facility] Comment on above: Performed By: #### L 500.2500, L506.0400, L501.9520, L100.0100 ####[facility] [address] [place], [address] GFR/1.73 sq M.predicted among non-blacks MDRD (S/P/Bld) [Vol rate/Area] 130 mL/min/{1.73_m2} Normal >60 [facility] Comment on above: Result Comment: Non- GFR Calc Performed By: #### L 500.2500, L506.0400, L501.9520, L100.0100 ####[facility] [address] [place], [address] Glucose [Mass/Vol] 99 mg/dL Normal 74-106 [facility] Comment on above: Performed By: #### L 500.2500, L506.0400, L501.9520, L100.0100 ####[facility] [address] [place], [address] Potassium [Moles/Vol] 4.3 mmol/L Normal 3.5-5.1 [facility] Comment on above: Performed By: #### L 500.2500, L506.0400, L501.9520, L100.0100 ####[facility] [address] [place], [address] Sodium [Moles/Vol] 138 mmol/L Normal 136-145 [facility] Comment on above: Performed By: #### L 500.2500, L506.0400, L501.9520, L100.0100 ####[facility] [address] [place], [address] Urea nitrogen [Mass/Vol] 13 mg/dL Normal 7-18 [facility] Comment on above: Performed By: #### L 500.2500, L506.0400, L501.9520, L100.0100 ####[facility] [address] [place], [address] Basophil percentageOrdered B y: René Zhao on 04-13-2024 Basophils/100 WBC (Bld) 0.7 % 0-1 [facility] Blood urea nitrogen (BUN)/cr eatinine ratioOrdered By: René Zhao on 04-13-2024 Urea nitrogen/Creatinine [Mass ratio] 23.6 mg/mg High 10-20 [facility] CBC W/Diff, Automatedon 12-0 Absolute Lymph 1.44 X10 3/uL Normal 0.83-4.51 [facility] Comment on above: Performed By: #### L 500.2500, L506.0400, L501.9520, L100.0100 ####[facility] [address] [place], [address] Absolute Neut 7.0 X10 3/uL Normal 2.0-7.7 [facility] Comment on above: Performed By: #### L 500.2500, L506.0400, L501.9520, L100.0100 ####[facility] [address] [place], [address] Basophils/100 WBC (Bld) 0.7 % Normal 0-1 [facility] Comment on above: Performed By: #### L 500.2500, L506.0400, L501.9520, L100.0100 ####[facility] [address] [place], [address] Eosinophils/100 WBC (Bld) 1.7 % Normal 0-5 [facility] Comment on above: Performed By: #### L 500.2500, L506.0400, L501.9520, L100.0100 ####[facility] [address] [place], [address] Erythrocyte distribution width (RBC) [Ratio] 15.8 % High 11.6-14.6 [facility] Comment on above: Performed By: #### L 500.2500, L506.0400, L501.9520, L100.0100 ####[facility] [address] [place], [address] Hematocrit (Bld) [Volume fraction] 35.8 % Low 37-47 [facility] Comment on above: Performed By: #### L 500.2500, L506.0400, L501.9520, L100.0100 ####[facility] [address] [place], [address] Hemoglobin (Bld) [Mass/Vol] 10.7 g/dL Low 12.0-15.0 [facility] Comment on above: Performed By: #### L 500.2500, L506.0400, L501.9520, L100.0100 ####[facility] [address] [place], [address] IG% 1.000 High 0.0-0.9 [facility] Comment on above: Result Comment: IG% - Immature Granulocytes (promyelocytes, myelocytes and metamyelocytes) > 1% indicates that a LEFT SHIFT is Present. Performed By: #### L 500.2500, L506.0400, L501.9520, L100.0100 ####[facility] [address] [place], [address] Lymphocytes/100 WBC (Bld) 14.9 % Low 19-41 [facility] Comment on above: Performed By: #### L 500.2500, L506.0400, L501.9520, L100.0100 ####[facility] [address] [place], [address] MCH (RBC) [Entitic mass] 25.5 pg Low 27.0-32.0 [facility] Comment on above: Performed By: #### L 500.2500, L506.0400, L501.9520, L100.0100 ####[facility] [address] [place], [address] MCHC (RBC) [Mass/Vol] 29.9 g/dL Low 32-36 [facility] Comment on above: Performed By: #### L 500.2500, L506.0400, L501.9520, L100.0100 ####[facility] [address] [place], [address] MCV (RBC) [Entitic vol] 85.2 fL Normal 81-99 [facility] Comment on above: Performed By: #### L 500.2500, L506.0400, L501.9520, L100.0100 ####[facility] [address] [place], [address] Monocytes/100 WBC (Bld) 9.0 % Normal 0-10 [facility] Comment on above: Performed By: #### L 500.2500, L506.0400, L501.9520, L100.0100 ####[facility] [address] [place], [address] Neutrophils/100 WBC (Bld) 72.7 % High 47-70 [facility] Comment on above: Performed By: #### L 500.2500, L506.0400, L501.9520, L100.0100 ####[facility] [address] [place], [address] Nucleated RBC (Bld) [#/Vol] 0 10*3/uL Normal 0-5 [facility] Comment on above: Performed By: #### L 500.2500, L506.0400, L501.9520, L100.0100 ####[facility] [address] [place], [address] Platelet mean volume (Bld) [Entitic vol] 11.4 fL Normal 6.2-12.0 [facility] Comment on above: Performed By: #### L 500.2500, L506.0400, L501.9520, L100.0100 ####[facility] [address] [place], [address] Platelets (Bld) [#/Vol] 291 10*3/uL Normal 150-450 [facility] Comment on above: Performed By: #### L 500.2500, L506.0400, L501.9520, L100.0100 ####[facility] [address] [place], [address] RBC (Bld) [#/Vol] 4.20 10*6/uL Normal 4.2-5.4 [facility] Comment on above: Performed By: #### L 500.2500, L506.0400, L501.9520, L100.0100 ####[facility] [address] [place], [address] RDW SD 48.4 fl High 35.1-43.9 [facility] Comment on above: Performed By: #### L 500.2500, L506.0400, L501.9520, L100.0100 ####[facility] [address] [place], [address] WBC (Bld) [#/Vol] 9.7 10*3/uL Normal 4.4-11.0 [facility] Comment on above: Performed By: #### L 500.2500, L506.0400, L501.9520, L100.0100 ####[facility] [address] [place], [address] Carbon dioxide measurementOr dered By: René Zhao on 04-13-2024 CO2 [Moles/Vol] 25.0 mmol/L 21.0-32.0 [facility] Chloride measurementOrdered By: René Zhao on 04-13-2024 Chloride [Moles/Vol] 105 mmol/L 98-107 [facility] serum free thyroxine (FT4) measurementOrdered By: René Zhao on 04-13-2024 Free T4 [Mass/Vol] 1.01 ng/dL 0.76-1.46 [facility] Eosinophil percentageOrdered By: paulkilleensaskia Zhao on 04-13-2024 Eosinophils/100 WBC (Bld) 1.7 % 0-5 [facility] Erythrocyte distribution wid th ratioOrdered By: René Zhao on 04-13-2024 Erythrocyte distribution width (RBC) [Ratio] 15.8 % High 11.6-14.6 [facility] Erythrocyte distribution wid th standard deviationOrdered By: René Zhao on 04-13-2024 Erythrocyte distribution width (RBC) [Entitic vol] 48.4 fL High 35.1-43.9 [facility] Estimated glomerular filtrat ion rate (GFR) AmericanOrdered By: René Zhao on 04-13-2024 Estimated GFR (MDRD) Amer 157 mL/min >60 [facility] Comment on above: GFR Calc Ferritinon 04-13-2024 Ferritin [Mass/Vol] 16 ng/mL Normal 8-252 [facility] Comment on above: Performed By: #### L 503.6150, L503.6075, L503.0105, L503.6550 #### [facility] [address] [place], [address] Ferritin measurementOrdered By: René Zhao on 04-13-2024 Ferritin [Mass/Vol] 16 ng/mL 8-252 [facility] Glomerular filtration rate ( GFR) estimationOrdered By: René Zhao on 04-13-2024 Estimated GFR (MDRD) Non-Af Amer 130 mL/min >60 [facility] Comment on above: Non- GFR Calc Glucose measurementOrdered B y: Nakiakilleensaskia Zhao on 04-13-2024 Glucose [Mass/Vol] 99 mg/dL 74-106 [facility] Hematocrit Auto (Bld) [Volum e fraction]Ordered By: René Zhao on 04-13-2024 Hematocrit (Bld) [Volume fraction] 35.8 % Low 37-47 [facility] Hemoglobin measurementOrdere d By: René Zhao on 04-13-2024 Hemoglobin (Bld) [Mass/Vol] 10.7 g/dL Low 12.0-15.0 [facility] Immature granulocytes/100 WB C Auto (Bld)Ordered By: René Zhao on 04-13-2024 Immature granulocytes/100 WBC (Bld) 1.000 % High 0.0-0.9 [facility] Comment on above: IG% - Immature Granu locytes (promyelocytes, myelocytes and metamyelocytes) > 1% indicates that a LEFT SHIFT is Present. Internal Medicine Office Vis iton 04-13-2024 Internal Medicine Office Visit [facility] [address] [place] [address] [place] [address] OFFICE VISIT Date of Service: 04/13/24 MR#: [id number] Acct: [id number] Name: EDNA WAN Rep #: [id number] : 1985 Provider: Dr. René de leon MD Age/Sex: 38/F Location: [facility] Status: Signed Intake Vital Signs 10/20/23 14:51 04/13/24 08:00 04/13/24 08:34 04/13/24 08:34 Height 5 ft 8 in 5 ft 8 in Weight: 357 lb BMI 54.3 BP 150/82 H 138/80 H 160/96 H 150/102 H Blood Pressure Location Lt brachial Lt brachial Lt brachial Rt radial Position Sitting Sitting Sitting Sitting Respiration 18 16 Pulse 105 H 114 H 102 H Pulse Source Monitor Monitor Monitor Temp 98.4 F 97.5 F L Temp Source Temporal Temporal Pulse Oximetry (%) 97 98 Oxygen Delivery Method room air room air Comment Dr. Zhao aware Intake Visit Reasons: 6 M FU Chief Complaint: Follow-up chronic conditions. Doctor Of Radiology Required: No Accompanied by: Self Is patient in pain?: No Allergies hydrochlorothiazide Allergy (Verified 04/13/24 07:57) INCREASED ANXIETY bupropion Adverse Reaction (Unknown, Verified 04/13/24 07:57) Other metoprolol Adverse Reaction (Verified 04/13/24 07:57) RAPID HEART RATE, INCREASED ANXIETY Medications ???Medication ???Instructions ???Recorded ???Confirmed ???Type inulin 2 gram chewable tablet 2 g PO BID 05/13/22 04/13/24 History (Fiber Gummies) naproxen sodium 220 mg capsule 220 mg PO BID PRN pain 05/13/22 04/13/24 History (Aleve) lisinopril 40 mg tablet See Rx Instructions .Route 10/17/23 04/13/24 Rx .COMPLEX #90 tabs ferrous sulfate 325 mg (65 mg 325 mg PO Q OTHER DAY #90 tabs 10/21/23 04/13/24 Rx iron) tablet pantoprazole 40 mg tablet,delayed 40 mg PO DAILY #90 tabs 11/03/23 04/13/24 Rx release (Protonix) escitalopram oxalate 10 mg tablet See Rx Instructions .Route 03/14/24 04/13/24 Rx .COMPLEX #90 tabs diltiazem HCl 240 mg 240 mg PO QHS #90 caps 04/13/24 04/13/24 Rx capsule,extended release 24 hr Nurse's Note: Per Dr. Zhao, patient is to take BP and HR every day and keep a log for 1 week. Patient instructed to call this office with log in 1 week. This nurse reviewed proper technique for obtaining BP and HR; patient verbalized understanding of plan. Encouraged patient to add exercise/walking to regimen which may be helpful at reducing BP. [facility] Medical History (Updated 04/13/24 @ 09:[address] René Zhao MD) Flu vaccine need Anemia Thyroid nodule Morbid obesity Thyroid enlargement History of hiatal hernia Former smoker Family history of pancreatic cancer Obesity Tachycardia Morbid obesity with BMI of 45.0-49.9, adult Anxiety and depression Diverticulosis History of gallstones Seasonal allergies Seborrheic keratosis Glover's esophagus determined by biopsy Wears glasses Depression Anxiety Migraine headache History of diverticulitis Gastric reflux Non-smoker Hypertension Abdominal pain Surgical History History of colonoscopy History of esophagogastroduodenoscopy (EGD) History of tonsillectomy and adenoidectomy Hx laparoscopic cholecystectomy Family History Grandfather Colon cancer Mother Cancer Pancreatic cancer Grandmother Cancer Hypertension Diverticulosis Social History Smoking Status: Former smoker alcohol intake: never substance use type: does not use caffeine: Yes what type of physical activity do you participate in: walking frequency: 3-4 times per week seatbelt use: always do you feel safe at home: Yes additional social history: - Mike HPI HPI Chief Complaint: Follow-up chronic conditions. Details: EDNA WAN, is a 38 F who presents to the office today for follow-up of her chronic conditions. No acute concerns at this time. History of tachycardia, on diltiazem. At her last visit diltiazem was increased to 180 and she was advised to monitor her numbers at home however, she states that she did not. Admits that she does not stay well-hydrated. History of anemia, she denies increased bleeding, or dark or bloody stool. History of hypertension causing currently lisinopril. Her blood pressure was 138/80 however repeat blood pressures were higher. As above, has not checked her numbers at home. Chest pain, palpitati ons or shortness of breath. Other chronic conditions are said to be stable. ROS Const Constitutional: No body ache, chills, excessive sweating, fatigue, fever(s), frequent falls, headache(s), snoring, weakness or change in appetite Eyes Eyes: No blurry vision, change in vision, bulging eyes, floaters, visual disturbances, eye pain or Light sensitivity ENT ENT (more content not included)... Normal [facility] Ironon 04-13-2024 Iron [Mass/Vol] 36 ug/dL Low 50-170 [facility] Comment on above: Performed By: #### L 503.6150, L503.6075, L503.0105, L503.6550 #### [facility] [address] [place], [address] Iron (Unsp spec) [Mass/Mass] Ordered By: René Zhao on 04-13-2024 Iron [Mass/Vol] 36 ug/dL Low 50-170 [facility] Iron Binding Capacity,Totalo n 04-13-2024 TIBC 386 ug/dL Normal 250-450 [facility] Comment on above: Performed By: #### L 503.6150, L503.6075, L503.0105, L503.6550 #### [facility] [address] [place], [address] Lymphocytes Auto (Unsp spec) [#/Vol]Ordered By: René Zhao on 04-13-2024 Lymphocytes (Bld) [#/Vol] 1.44 10*3/uL 0.83-4.51 [facility] Lymphocytes/100 WBC Auto (Un sp spec)Ordered By: René Zhao on 04-13-2024 Lymphocytes/100 WBC (Bld) 14.9 % Low 19-41 [facility] MCV (mean corpuscular volume ) determinationOrdered By: René Zhao on 04-13-2024 MCV (RBC) [Entitic vol] 85.2 fL 81-99 [facility] Mean corpuscular hemoglobin (MCH) determinationOrdered By: René Zhao on 04-13-2024 MCH (RBC) [Entitic mass] 25.5 pg Low 27.0-32.0 [facility] Mean corpuscular hemoglobin concentration (MCHC) determinationOrdered By: René Zhao on 04-13-2024 MCHC (RBC) [Mass/Vol] 29.9 g/dL Low 32-36 [facility] Mean platelet volume determi nationOrdered By: René Zhao on 04-13-2024 Platelet mean volume (Bld) [Entitic vol] 11.4 fL 6.2-12.0 [facility] Monocyte percentageOrdered B y: René Zhao on 04-13-2024 Monocytes/100 WBC (Bld) 9.0 % 0-10 [facility] Neutrophil percentageOrdered By: René Zhao on 04-13-2024 Neutrophils/100 WBC (Bld) 72.7 % High 47-70 [facility] Nucleated red blood cell per centageOrdered By: René Zhao on 04-13-2024 Nucleated RBC/100 WBC (Bld) [Ratio] 0 % 0-5 [facility] Platelet countOrdered By: Alvaro Zhao on 04-13-2024 Platelets (Bld) [#/Vol] 291 10*3/uL 150-450 [facility] Potassium measurementOrdered By: René Zhao on 04-13-2024 Potassium [Moles/Vol] 4.3 mmol/L 3.5-5.1 [facility] RBC Auto (Bld) [#/Vol]Ordere d By: René Zhao on 04-13-2024 RBC (Bld) [#/Vol] 4.20 10*6/uL 4.2-5.4 [facility] Serum anion gap measurementO rdered By: René Zhao on 04-13-2024 Anion gap [Moles/Vol] 7 mmol/L 5-15 [facility] Serum or plasma calcium reginald urement (mass/volume)Ordered By: René Zhao on 04-13-2024 Calcium [Mass/Vol] 9.4 mg/dL 8.5-10.1 [facility] Serum or plasma creatinine m easurement (mass/volume)Ordered By: René Zhao on 04-13-2024 Creatinine [Mass/Vol] 0.55 mg/dL 0.55-1.02 [facility] Comment on above: The validity of the calculated GFR & GFRAA in patients over 70 years has not been determined. Clinical correlation is essential. Serum or plasma urea nitroge n measurement (mass/volume)Ordered By: René Zhao on 04-13-2024 Urea nitrogen [Mass/Vol] 13 mg/dL 7-18 [facility] Sodium levelOrdered By: Nakia Zhao on 04-13-2024 Sodium [Moles/Vol] 138 mmol/L 136-145 [facility] T4 Free Directon 04-13-2024 T4 FREE DIRECT 1.01 ng/dL Normal 0.76-1.46 [facility] Comment on above: Performed By: #### L 500.2500, L506.0400, L501.9520, L100.0100 ####[facility] [address] [place], [address] TIBCOrdered By: René de leon on 04-13-2024 Total Iron Binding Capacity 386 ug/dL 250-450 [facility] TSH QnOrdered By: René Zhao on 04-13-2024 Thyroid Stimulating Hormone (TSH) 1.240 uIU/mL 0.358-3.74 0 [facility] Thyroid Stim Hormone (TSH)on 04-13-2024 TSH 1.240 uIU/mL Normal 0.358-3.74 0 [facility] Comment on above: Performed By: #### L 500.2500, L506.0400, L501.9520, L100.0100 ####[facility] [address] [place], [address] Vitamin B12on 04-13-2024 Cobalamin (Vitamin B12) [Mass/Vol] 242 pg/mL Normal 211-911 [facility] Comment on above: Performed By: #### L 503.6150, L503.6075, L503.0105, L503.6550 #### [facility] [address] [place], [address] Vitamin B12 measurementOrder ed By: Sangsaskia Fernandomistydanis on 04-13-2024 Cobalamin (Vitamin B12) [Mass/Vol] 242 pg/mL 211-911 [facility] White blood cell (WBC) count Ordered By: Nakianakia Fernandomistydanis on 04-13-2024 WBC (Bld) [#/Vol] 9.7 10*3/uL 4.4-11.0 [facility] CNOVon 03-26-2024 CNOV Office Visit (UCWSTR ) EDNA WAN ([id number]) 1985 F Date Time Provider Department 03/26/24 4:45 PM GEO MURPHY [facility] During your visit today, we recorded the following information about you: Temperature Pulse Respiration Blood pressure 98.4 degrees 114/minute 18/minute 142/88 Weight 167.6 kg Geo Murphy MD 03/26/2024 5:59 PM Signed Patient presents with: Cough: wheeze x 1 month HPI: Coughing for 1 month. Treated here 03/04/24 for lower respiratory tract infection with doxycycline, prednisone, and albuterol. Positive symptoms: Cough, Shortness of breath, Wheezing, Diarrhea (since starting antibiotic), Negative symptoms: Chest pain, Sore throat, Nasal Congestion, Rhinorrhea, Fever, Vomiting, OTC: uses albuterol occasionally. No history of asthma or wheezing with colds. Home COVID tests at the beginning of illness were negative. PAST MEDICAL HISTORY Diagnosis Date Anxiety Glover esophagus Depression Diverticulitis HTN (hypertension) Multiple thyroid nodules MEDICATIONS: Current Outpatient Medications Medication Sig dilTIAZem CD (CARDIZEM CD, CARTIA XT) 180 mg 24 hr capsule Take 180 mg by mouth daily at bedtime. escitalopram oxalate (LEXAPRO) 10 mg tablet Take 1 tablet by mouth every afternoon. albuterol HFA (PROVENTIL HFA, VENTOLIN HFA) 90 mcg/actuation inhaler Inhale 2 Puffs as instructed every 4 hours as needed for wheezing/shortness of breath. sucralfate (CARAFATE) 1 gram tablet Take 1 g by mouth four times daily. pantoprazole DR (PROTONIX) 20 mg tablet Take 1 tablet by mouth once daily. famotidine (PEPCID) 40 mg tablet Take 40 mg by mouth twice daily. lisinopril (ZESTRIL, PRINIVIL) 40 mg tablet Take 40 mg by mouth once daily. No current facility-administered medications for this visit. ALLERGIES: ALLERGIES Allergen Reactions Hctz [Hydrochloroth* Intolerance Metoprolol Intolerance VITALS: BP 142/88 Pulse 114 Temp 36.9 ?C (98.4 ?F) Resp 18 Wt (!) 167.6 kg (369 lb 7.9 oz) LMP 02/24/2024 (Exact Date) SpO2 96% BMI 54.17 kg/m? Last 3 Encounter Wt Readings: Date: Wt: 03/26/2024 167.6 kg (369 lb 7.9 oz) 03/04/2024 164.1 kg (361 lb 12.4 oz) 03/03/2021 145.5 kg (320 lb 12.8 oz) PHYSICAL EXAM: GEN: mildly ill appearing HEENT: PERRL, EOMI, conjunctiva clear Ears: canals clear. TMs without erythema, bulge, or effusion Sinuses: non-tender frontal sinus, non-tender maxillary sinuses Throat: moist mucous membranes, no erythema, no exudate Neck: supple, no thyromegaly, no lymphadenopathy HEART: regular rate and rhythm during my exam, no murmurs LUNGS: bilateral coarse wheezes, no increased WOB ASSESSMENT/PLAN: 1. Subacute cough - ICD9: 786.2, ICD10: R05.2 (primary diagnosis) 2. Wheezing - ICD9: 786.07, ICD10: R06.2 - XR CHEST 2V FRONTAL/LAT Lungs and pleura: No consolidation. No lung mass. No pleural effusion. No pneumothorax. Cardiomediastinal silhouette: Normal cardiomediastinal silhouette. Repeat steroid - PREDNISONE 10 MG TABLET I recommended follow up with PCP for further evaluation of wheezing. She plans to keep her appointment as scheduled. Geo Murphy MD Allergies As of Date: 03/26/2024 Noted Allergy Reaction HCTZ (HYDROCHLOROTHIAZIDE) 12/09/2014 5 - Intolerance METOPROLOL 12/09/2014 5 - Intolerance Date Reviewed: 03/26/2024 Reviewed by: Rosaura Morales MA - Fully Assessed Reason for Visit: Cough [28] Cmt: wheeze x 1 month Primary Visit Diagnosis:Subacute cough [R05.2] Other Visit Diagnosis:Wheezing [R06.2] Order(s):XR CHEST 2V FRONTAL/LAT [[id number]] Order #: [id number] FUTURE predniSONE (DELTASONE) 10 mg tabletTake by mouth 6 pills on day 1, 5 pills on day 2, 4 pills on day 3, 3 pills on day 4, 2 pills on day 5, 1 pill on day 6Disp: 21 tabletRfl: 0 Prescriptions as of 03/26/2024 - predniSONE (DELTASONE) 10 mg tablet Take by mouth 6 pills on day 1, 5 pills on day 2, 4 pills on day 3, 3 pills on day 4, 2 pills on day 5, 1 pill on day 6 - dilTIAZem CD (CARDIZEM CD, CARTIA XT) 180 mg 24 hr capsule Take 180 mg by mouth daily at bedtime. - escitalopram oxalate (LEXAPRO) 10 mg tablet Take 1 tablet by mouth every afternoon. - albuterol HFA (PROVENTIL HFA, VENTOLIN HFA) 90 mcg/actuation inhaler Inhale 2 Puffs as instructed every 4 hours as needed for wheezing/shortness of breath. - sucralfate (CARAFATE) 1 gram tablet Take 1 g by mouth four times daily. - pantoprazole DR (PROTONIX) 20 mg tablet Take 1 tablet by mouth once daily. - famotidine (PEPCID) 40 mg tablet Take 40 mg by mouth twice daily. - lisinopril (ZESTRIL, PRINIVIL) 40 mg tablet Take 40 mg by mouth once daily. Problem List As Of Date: 03/26/2024 (None) Prescriptions ordered this encounter Disp Refills Start End PREDNISONE 10 MG TABLET 21 t* 0 03/26/2024 04/01/2024 Sig: Take by mouth 6 pills on day 1, 5 pills on day (more content not included)... Normal [facility] XR CHEST 2V FRONTAL/LATon XR CHEST 2V FRONTAL/LAT * * *Final Report* * * DATE OF EXAM: Mar 26 2024 5:28PM WOX [id number] - XR CHEST 2V FRONTAL/LAT / PROCEDURE REASON: multiple diagnoses * * * * Physician Interpretation * * * * EXAMINATION: CHEST RADIOGRAPH (2 VIEW FRONTAL and LATERAL) CLINICAL HISTORY: Subacute cough Wheezing MQ: XC2_6 EXAM DATE/TIME: 03/26/2024 5:28 PM COMPARISON: No relevant prior studies available. RESULT: Lines, tubes, and devices: None. Lungs and pleura: No consolidation. No lung mass. No pleural effusion. No pneumothorax. Cardiomediastinal silhouette: Normal cardiomediastinal silhouette. Bones and soft tissues: There are mild degenerative changes in the spine. IMPRESSION: No acute radiographic abnormality. Local Bulk Driver: MARC Transcribe Date/Time: Mar 26 2024 5:28P Dictated by : BRADLEY SALCEDO MD This examination was interpreted and the report reviewed and electronically signed by: BRADLEY SALCEDO MD on Mar 26 2024 5:29PM EST [id number] Normal [facility] XR Chest PA and Lateralon IMPRESSION: No acute radiographic abnormality. Local Bulk Driver: PSCB Transcribe Date/Time: Mar 26 2024 5:28P Dictated by : BRADLEY SALCEDO MD This examination was interpreted and the report reviewed and electronically signed by: BRADLEY SALCEDO MD on Mar 26 2024 5:29PM EST DIVISION OF RADIOLOGY * * *Final Report* * * DATE OF EXAM: Mar 26 2024 5:28PM WOX [id number] - XR CHEST 2V FRONTAL/LAT / PROCEDURE REASON: multiple diagnoses * * * * Physician Interpretation * * * * EXAMINATION: CHEST RADIOGRAPH (2 VIEW FRONTAL & LATERAL) CLINICAL HISTORY: Subacute cough Wheezing MQ: XC2_6 EXAM DATE/TIME: 03/26/2024 5:28 PM COMPARISON: No relevant prior studies available. RESULT: Lines, tubes, and devices: None. Lungs and pleura: No consolidation. No lung mass. No pleural effusion. No pneumothorax. Cardiomediastinal silhouette: Normal cardiomediastinal silhouette. Bones and soft tissues: There are mild degenerative changes in the spine. DIVISION OF RADIOLOGY Provider, [facility] - 03/26/2024 * * *Final Report* * * DATE OF EXAM: Mar 26 2024 5:28PM WOX [id number] - XR CHEST 2V FRONTAL/LAT / PROCEDURE REASON: multiple diagnoses * * * * Physician Interpretation * * * * EXAMINATION: CHEST RADIOGRAPH (2 VIEW FRONTAL & LATERAL) CLINICAL HISTORY: Subacute cough Wheezing MQ: XC2_6 EXAM DATE/TIME: 03/26/2024 5:28 PM COMPARISON: No relevant prior studies available. RESULT: Lines, tubes, and devices: None. Lungs and pleura: No consolidation. No lung mass. No pleural effusion. No pneumothorax. Cardiomediastinal silhouette: Normal cardiomediastinal silhouette. Bones and soft tissues: There are mild degenerative changes in the spine. IMPRESSION IMPRESSION: No acute radiographic abnormality. Local Bulk Driver: MARC Transcribe Date/Time: Mar 26 2024 5:28P Dictated by : BRADLEY SALCEDO MD This examination was interpreted and the report reviewed and electronically signed by: BRADLEY SALCEDO MD on Mar 26 2024 5:29PM [facility] Radiology Study observation (narrative) [facility] XR Chest PA and LateralOrder ed By: [facility] Provider on 03-26-2024 [facility] CNOVon 03-04-2024 CNOV Office Visit (WSTR ) EDNA WAN ([id number]) 1985 F Date Time Provider Department 03/04/24 2:15 PM [facility] During your visit today, we recorded the following information about you: Temperature Pulse Respiration Weight 98.3 degrees 103/minute 18/minute 164.1 kg Last Period 02/24/24 Yoselin Peoples, PA 03/04/2024 2:41 PM Signed This note was created using NoteWriter. Subjective Edna Wan is a 38 year old female. HPI 38-year-old female presents for cough. Patient has had a cough, chest congestion x 10 days. She states that she has been coughing up phlegm. She has no history of asthma or COPD. She is not a smoker. She states she has had a little bit of nasal congestion. She has been using Mucinex, cough and cold medication with minimal improvement. Her right ear is also hurting and feels plugged. She was recently on vacation, so possible sick contacts. No other complaint. She has not had any fevers. PAST MEDICAL HISTORY Diagnosis Date Anxiety HTN (hypertension) PAST SURGICAL HISTORY Procedure Laterality Date ADENOIDECTOMY PRIMARY Adenoidectomy EGD 02/16/2021 LAPAROSCOPY SURG CHOLECYSTECTOMY Cholecystectomy, lap TONSILLECTOMY PRIMARY/SECONDARY Tonsillectomy ALLERGIES Hctz [Hydrochlorothiazide] and Metoprolol MEDICATIONS dilTIAZem CD (CARDIZEM CD, CARTIA XT) 180 mg 24 hr capsule Take 180 mg by mouth daily at bedtime. escitalopram oxalate (LEXAPRO) 10 mg tablet Take 1 tablet by mouth every afternoon. sucralfate (CARAFATE) 1 gram tablet Take 1 g by mouth four times daily. pantoprazole DR (PROTONIX) 20 mg tablet Take 1 tablet by mouth once daily. famotidine (PEPCID) 40 mg tablet Take 40 mg by mouth twice daily. lisinopril (ZESTRIL, PRINIVIL) 40 mg tablet Take 40 mg by mouth once daily. pantoprazole DR (PROTONIX) 40 mg tablet Take 1 tablet by mouth every afternoon. (Patient not taking: Reported on 03/04/2024) albuterol HFA (PROVENTIL HFA, VENTOLIN HFA) 90 mcg/actuation inhaler Inhale 2 Puffs as instructed every 4 hours as needed for wheezing/shortness of breath. predniSONE (DELTASONE) 20 mg tablet Take 2 tablets by mouth once daily for 4 days. Take daily with food. doxycycline (VIBRA-TABS) 100 mg tablet Take 1 tablet by mouth two times a day for 7 days. LORazepam (ATIVAN) 1 mg tablet Take 1 mg by mouth every 6 hours as needed. (Patient not taking: Reported on 03/04/2024) FAMILY HISTORY Problem Relation Age of Onset Cancer Mother pancreatic Social History Tobacco Use Smoking status: Never Smokeless tobacco: Never Vaping Use Vaping status: Never Used Substance Use Topics Alcohol use: Yes Comment: rare Drug use: No Review of Systems Constitutional: Negative for chills and fever. HENT: Positive for congestion and ear pain. Negative for sore throat. Respiratory: Positive for cough. Negative for shortness of breath. Cardiovascular: Negative for chest pain. Gastrointestinal: Negative for diarrhea and vomiting. Objective Pulse 103 Temp 36.8 ?C (98.3 ?F) (Left Tympanic) Resp 18 Wt (!) 164.1 kg (361 lb 12.4 oz) LMP 02/24/2024 (Exact Date) SpO2 95% BMI 53.04 kg/m? Physical Exam Vitals and nursing note reviewed. Constitutional: General: She is not in acute distress. Appearance: Normal appearance. She is not toxic-appearing. HENT: Right Ear: Ear canal normal. A middle ear effusion is present. Left Ear: Tympanic membrane and ear canal normal. Nose: Nose normal. Mouth/Throat: Mouth: Mucous membranes are moist. Eyes: Conjunctiva/sclera: Conjunctivae normal. Cardiovascular: Rate and Rhythm: Normal rate and regular rhythm. Pulmonary: Effort: Pulmonary effort is normal. Breath sounds: Wheezing and rhonchi present. Skin: General: Skin is warm and dry. Neurological: Mental Status: She is alert. Assessment and Plan ASSESSMENT/PLAN: 1. Lower resp. tract infection - ICD9: 519.8, ICD10: J22 (primary diagnosis) -No XR available at time of exam -Patient is wheezing and rhonchi on exam. -Rx for doxycycline, Rx for prednisone, Rx albuterol inhaler -Follow-up with PCP if no improvement in 4 to 5 days 2. Wheezing - ICD9: 786.07, ICD10: R06.2 -See above Diagnosis and treatment plan were discussed and questions were answered to the patient's satisfaction. Pt acknowledged understanding of concepts and follow up plan. Specific signs and symptoms that would indicate the need for higher level of care were discussed in detail warranting prompt ER evaluation. KRYSTYNA Dumas Allergies As of Date: 03/04/2024 Noted Allergy Reaction HCTZ (HYDROCHLOROTHIAZIDE) 12/09/2014 5 - Intolerance METOPROLOL 12/09/2014 5 - Intolerance Date Reviewed: 03/04/2024 Reviewed by: Eufemia Goldsmith MA - Fully Assessed Reason for Visit: Cough [28] Cmt: X 1 week Primary Visit Diagnosis:Lower resp. tract (more content not included)... Normal [facility] Ferritinon 10-21-2023 Ferritin [Mass/Vol] 10 ng/mL Normal 8-252 [facility] Comment on above: Performed By: #### L 503.6075, L503.6150, L503.6550 ####[facility] [address] [place], [address] Ironon 10-21-2023 Iron [Mass/Vol] 35 ug/dL Low 50-170 [facility] Comment on above: Performed By: #### L 503.6075, L503.6150, L503.6550 ####[facility] [address] [place], [address] Iron Binding Capacity,Totalo n 10-21-2023 TIBC 423 ug/dL Normal 250-450 [facility] Comment on above: Performed By: #### L 503.6075, L503.6150, L503.6550 ####[facility] [address] [place], [address] CBC W/Diff, Automatedon 06- Absolute Lymph 1.87 X10 3/uL Normal 0.83-4.51 [facility] Comment on above: Performed By: #### L 500.4050, L100.0100, L500.4100 ####[facility] [address] [place], [address] Absolute Neut 8.3 X10 3/uL High 2.0-7.7 [facility] Comment on above: Performed By: #### L 500.4050, L100.0100, L500.4100 ####[facility] [address] [place], [address] Basophils/100 WBC (Bld) 0.5 % Normal 0-1 [facility] Comment on above: Performed By: #### L 500.4050, L100.0100, L500.4100 ####[facility] [address] [place], [address] Eosinophils/100 WBC (Bld) 4.4 % Normal 0-5 [facility] Comment on above: Performed By: #### L 500.4050, L100.0100, L500.4100 ####[facility] [address] [place], [address] Erythrocyte distribution width (RBC) [Ratio] 16.1 % High 11.6-14.6 [facility] Comment on above: Performed By: #### L 500.4050, L100.0100, L500.4100 ####[facility] [address] [place], [address] Hematocrit (Bld) [Volume fraction] 33.7 % Low 37-47 [facility] Comment on above: Performed By: #### L 500.4050, L100.0100, L500.4100 ####[facility] [address] [place], [address] Hemoglobin (Bld) [Mass/Vol] 10.1 g/dL Low 12.0-15.0 [facility] Comment on above: Performed By: #### L 500.4050, L100.0100, L500.4100 ####[facility] [address] [place], [address] IG% 1.000 High 0.0-0.9 [facility] Comment on above: Result Comment: IG% - Immature Granulocytes (promyelocytes, myelocytes and metamyelocytes) > 1% indicates that a LEFT SHIFT is Present. Performed By: #### L 500.4050, L100.0100, L500.4100 ####[facility] [address] [place], [address] Lymphocytes/100 WBC (Bld) 16.0 % Low 19-41 [facility] Comment on above: Performed By: #### L 500.4050, L100.0100, L500.4100 ####[facility] [address] [place], [address] MCH (RBC) [Entitic mass] 24.2 pg Low 27.0-32.0 [facility] Comment on above: Performed By: #### L 500.4050, L100.0100, L500.4100 ####[facility] [address] [place], [address] MCHC (RBC) [Mass/Vol] 30.0 g/dL Low 32-36 [facility] Comment on above: Performed By: #### L 500.4050, L100.0100, L500.4100 ####[facility] [address] [place], [address] MCV (RBC) [Entitic vol] 80.8 fL Low 81-99 [facility] Comment on above: Performed By: #### L 500.4050, L100.0100, L500.4100 ####[facility] [address] [place], [address] Monocytes/100 WBC (Bld) 6.9 % Normal 0-10 [facility] Comment on above: Performed By: #### L 500.4050, L100.0100, L500.4100 ####[facility] [address] [place], [address] Neutrophils/100 WBC (Bld) 71.2 % High 47-70 [facility] Comment on above: Performed By: #### L 500.4050, L100.0100, L500.4100 ####[facility] [address] [place], [address] Nucleated RBC (Bld) [#/Vol] 0 10*3/uL Normal 0-5 [facility] Comment on above: Performed By: #### L 500.4050, L100.0100, L500.4100 ####[facility] [address] [place], [address] Platelet mean volume (Bld) [Entitic vol] 11.5 fL Normal 6.2-12.0 [facility] Comment on above: Performed By: #### L 500.4050, L100.0100, L500.4100 ####[facility] [address] [place], [address] Platelets (Bld) [#/Vol] 354 10*3/uL Normal 150-450 [facility] Comment on above: Performed By: #### L 500.4050, L100.0100, L500.4100 ####[facility] [address] [place], [address] RBC (Bld) [#/Vol] 4.17 10*6/uL Low 4.2-5.4 [facility] Comment on above: Performed By: #### L 500.4050, L100.0100, L500.4100 ####[facility] [address] [place], [address] RDW SD 46.6 fl High 35.1-43.9 [facility] Comment on above: Performed By: #### L 500.4050, L100.0100, L500.4100 ####[facility] [address] [place], [address] WBC (Bld) [#/Vol] 11.7 10*3/uL High 4.4-11.0 [facility] Comment on above: Performed By: #### L 500.4050, L100.0100, L500.4100 ####[facility] [address] [place], [address] Comprehensive Metabolic [facility] 10-20-2023 Albumin [Mass/Vol] 3.6 g/dL Normal 3.2-5.0 [facility] Comment on above: Performed By: #### L 500.4050, L100.0100, L500.4100 ####[facility] [address] [place], [address] Albumin/Globulin [Mass ratio] 0.9 {ratio} Normal 0.9-2.4 [facility] Comment on above: Performed By: #### L 500.4050, L100.0100, L500.4100 ####[facility] [address] [place], [address] ALK P 129 U/L High 45-117 [facility] Comment on above: Performed By: #### L 500.4050, L100.0100, L500.4100 ####[facility] [address] [place], [address] ALT [Catalytic activity/Vol] 29 U/L Normal 13-56 [facility] Comment on above: Performed By: #### L 500.4050, L100.0100, L500.4100 ####[facility] [address] [place], [address] AST [Catalytic activity/Vol] 21 U/L Normal 15-37 [facility] Comment on above: Performed By: #### L 500.4050, L100.0100, L500.4100 ####[facility] [address] [place], [address] Bilirubin [Mass/Vol] 0.40 mg/dL Normal 0.20-1.00 [facility] Comment on above: Result Comment: For patients on eltrombopag therapy, use of Dimension Butler TBIL is not recommended. Performed By: #### L 500.4050, L100.0100, L500.4100 ####[facility] [address] [place], [address] BUN/CRE 20.1 RATIO High 10-20 [facility] Comment on above: Performed By: #### L 500.4050, L100.0100, L500.4100 ####[facility] [address] [place], [address] CA,Total 9.2 mg/dL Normal 8.5-10.1 [facility] Comment on above: Performed By: #### L 500.4050, L100.0100, L500.4100 ####[facility] [address] [place], [address] Chloride [Moles/Vol] 105 mmol/L Normal 98-107 [facility] Comment on above: Performed By: #### L 500.4050, L100.0100, L500.4100 ####[facility] [address] [place], [address] CO2 [Moles/Vol] 25.0 mmol/L Normal 21.0-32.0 [facility] Comment on above: Performed By: #### L 500.4050, L100.0100, L500.4100 ####[facility] [address] [place], [address] Creatinine [Mass/Vol] 0.70 mg/dL Normal 0.55-1.02 [facility] Comment on above: Result Comment: The validity of the calculated GFR GFRAA in patients over 70 years has not been determined. Clinical correlation is essential. Performed By: #### L 500.4050, L100.0100, L500.4100 ####[facility] [address] [place], [address] EST GFR - AA 120 mL/min Normal >60 [facility] Comment on above: Result Comment: Afri can Greenlandic GFR Calc Performed By: #### L 500.4050, L100.0100, L500.4100 ####[facility] [address] [place], [address] GAP 7 Normal 5-15 [facility] Comment on above: Performed By: #### L 500.4050, L100.0100, L500.4100 ####[facility] [address] [place], [address] GFR/1.73 sq M.predicted among non-blacks MDRD (S/P/Bld) [Vol rate/Area] 99 mL/min/{1.73_m2} Normal >60 [facility] Comment on above: Result Comment: Non- GFR Calc Performed By: #### L 500.4050, L100.0100, L500.4100 ####[facility] [address] [place], [address] Globulin (S) [Mass/Vol] 4.2 g/dL Normal 2.2-4.2 [facility] Comment on above: Performed By: #### L 500.4050, L100.0100, L500.4100 ####[facility] [address] [place], [address] Glucose [Mass/Vol] 126 mg/dL High 74-106 [facility] Comment on above: Result Comment: Fast ing Glucose result greater than or equal to 126 mg/dL suggests DIABETES MELLITUS per A.D.A. criteria. Performed By: #### L 500.4050, L100.0100, L500.4100 ####[facility] [address] [place], [address] Potassium [Moles/Vol] 3.7 mmol/L Normal 3.5-5.1 [facility] Comment on above: Performed By: #### L 500.4050, L100.0100, L500.4100 ####[facility] [address] [place], [address] Sodium [Moles/Vol] 137 mmol/L Normal 136-145 [facility] Comment on above: Performed By: #### L 500.4050, L100.0100, L500.4100 ####[facility] [address] [place], [address] T PROT 7.8 g/dL Normal 6.4-8.2 [facility] Comment on above: Performed By: #### L 500.4050, L100.0100, L500.4100 ####[facility] [address] [place], [address] Urea nitrogen [Mass/Vol] 14 mg/dL Normal 7-18 [facility] Comment on above: Performed By: #### L 500.4050, L100.0100, L500.4100 ####[facility] [address] [place], [address] Internal Medicine Office Vis bárbara 10-20-2023 Internal Medicine Office Visit [facility] [address] [place] [address] [place] [address] OFFICE VISIT Date of Service: 10/20/23 MR#: [id number] Acct: [id number] Name: EDNA WAN Rep #: [id number] : 1985 Provider: Dr. René de leon MD Age/Sex: 38/F Location: [facility] Status: Signed Intake Vital Signs 06/29/23 14:22 07/18/23 08:29 10/20/23 14:51 Height 5 ft 8 in 5 ft 8 in 5 ft 8 in Weight: 357 lb BMI 54.3 BP 150/82 H Blood Pressure Location Lt brachial Position Sitting Respiration 18 Pulse 105 H Pulse Source Monitor Temp 98.4 F Temp Source Temporal Pulse Oximetry (%) 97 Oxygen Delivery Method room air Intake Visit Reasons: 3 m fu Chief Complaint: 3 M FU Is patient in pain?: No Allergies hydrochlorothiazide Allergy (Verified 10/20/23 14:50) INCREASED ANXIETY bupropion Adverse Reaction (Unknown, Verified 10/20/23 14:50) Other metoprolol Adverse Reaction (Verified 10/20/23 14:50) RAPID HEART RATE, INCREASED ANXIETY Medications ???Medication ???Instructions ???Recorded ???Confirmed ???Type inulin 2 gram chewable tablet 2 g PO BID 05/13/22 10/20/23 History (Fiber Gummies) naproxen sodium 220 mg capsule 220 mg PO BID PRN pain 05/13/22 10/20/23 History (Aleve) pantoprazole 40 mg tablet,delayed 40 mg PO DAILY #90 tabs 10/05/22 10/20/23 Rx release (Protonix) escitalopram oxalate 10 mg tablet See Rx Instructions .Route 09/12/23 10/20/23 Rx .COMPLEX #90 tabs lisinopril 40 mg tablet See Rx Instructions .Route 10/17/23 10/20/23 Rx .COMPLEX #90 tabs diltiazem HCl 180 mg 180 mg PO QHS #60 caps 10/20/23 10/20/23 Rx capsule,extended release 24 hr Nurse's Note: pt reports that she is here for follow up on lexapro. [facility] Medical History Thyroid nodule Morbid obesity Thyroid enlargement History of hiatal hernia Former smoker Family history of pancreatic cancer Obesity Tachycardia Morbid obesity with BMI of 45.0-49.9, adult Anxiety and depression Diverticulosis History of gallstones Seasonal allergies Seborrheic keratosis Glover's esophagus determined by biopsy Wears glasses Depression Anxiety Migraine headache History of diverticulitis Gastric reflux Non-smoker Hypertension Abdominal pain Surgical History History of colonoscopy History of esophagogastroduodenoscopy (EGD) History of tonsillectomy and adenoidectomy Hx laparoscopic cholecystectomy Family History Grandfather Colon cancer Mother Cancer Pancreatic cancer Grandmother Cancer Hypertension Diverticulosis Social History Smoking Status: Former smoker alcohol intake: never substance use type: does not use caffeine: Yes what type of physical activity do you participate in: walking frequency: 3-4 times per week seatbelt use: always do you feel safe at home: Yes additional social history: - Mike HPI HPI Chief Complaint: 3 M FU Details: EDNA WAN, is a 38 F who presents to the office today for follow-up of her chronic medical conditions. No acute concerns at this time. Blood pressure and heart rate elevated. She states that she has checked her heart rate at home and her readings have been around 100 at rest. Occasionally slightly lower. Does not check her blood pressure. She states that she has been very busy lately working 2 jobs. No chest pain, palpitation or shortness of breath. Currently on diltiazem, 120 mg daily. Also on lisinopril 40 mg daily. She reports compliance with her medication. Currently at a BMI 54.3. Was referred to bariatric surgery group. She started the process but is yet to schedule. Other chronic medical conditions are stable. History of anxiety/depression and continues to find Lexapro helpful. ROS Const Constitutional: No body ache, chills, excessive sweating, fatigue, fever(s), frequent falls, headache(s), snoring, weight change, sleep problems, abnormal sleep pattern or change in appetite Eyes Eyes: No blurry vision, change in vision, bulging eyes, floaters, visual disturbances, eye pain or Light sensitivity ENT ENT: No abnormal hearing, ear or mastoid pain, tinnitus, balance problems, nosebleed/epistaxis, nasal congestion, headache(s), neck pain or sore throat Resp Respiratory: No cough, excessive phlegm production, pain on inspiration, shortness of breath, snoring or wheezing Cardio Cardiology: No chest pain at rest, chest pain with exertion, excessive sweating, shortness of breath, dyspnea on exertion, lightheadedness, orthopnea or palpitations Gastro GI: No abdominal pain, change in bowel habits, constipation, cramping, d (more content not included)... Normal [facility] Lipid Profileon 10-20-2023 Cholesterol [Mass/Vol] 161 mg/dL Normal 200 [facility] Comment on above: Result Comment: <200 mg/dL Desirable 200-240 mg/dL Borderline >240 mg/dL High Risk Performed By: #### L 500.1290, L100.0100, L500.4100 ####[facility] [address] [place], [address] Cholesterol in HDL [Mass/Vol] 48 mg/dL Normal [facility] Comment on above: Result Comment: The drugs N-Acetylcysteine and Metamizole may falsely depress this assay. Reference Range HDL <40 mg/dL Low HDL Cholesterol HDL >or= 60 mg/dL High HDL Cholesterol Performed By: #### L 500.4050, L100.0100, L500.4100 ####[facility] [address] [place], [address] Cholesterol in LDL [Mass/Vol] 94 mg/dL Normal 0-130 [facility] Comment on above: Performed By: #### L 500.4050, L100.0100, L500.4100 ####[facility] [address] [place], [address] Cholesterol in VLDL [Mass/Vol] 19 mg/dL Normal 5-40 [facility] Comment on above: Performed By: #### L 500.4050, L100.0100, L500.4100 ####[facility] [address] [place], [address] Triglyceride [Mass/Vol] 95 mg/dL Normal [facility] Comment on above: Result Comment: The drugs N-Acetylcysteine and Metamizole may falsely depress this assay. Serum Triglycerides Reference Interval Normal <150 mg/dL Borderline high 150 - 199 mg/dL High 200 - 499 mg/dL Very High > or = 500 mg/dL Performed By: #### L 500.4050, L100.0100, L500.4100 ####[facility] [address] [place], [address] Absolute lymphocyte countOrd ered By: Jose Antonio Dawkins on 06-15-2023 Lymphocytes Auto (Unsp spec) [#/Vol] 1.50 10*3/uL 0.83-4.51 [facility] Automated lymphocyte count a s percentage of total leukocytesOrdered By: Jose Antonio Dawkins on 06-15-2023 Lymphocytes/100 WBC Auto (Unsp spec) 15.0 % 19-41 [facility] Basophil percentageOrdered B y: Jose Antonio Dawkins on 06-15-2023 Basophils/100 WBC (Bld) 0.7 % 0-1 [facility] Bilirubin [Mass/Vol] 0.30 mg/dL 0.20-1.00 [facility] Comment on above: For patients on eltr ombopag therapy, use of Dimension Butler TBIL is not recommended. Chloride [Moles/Vol] 107 mmol/L 98-107 [facility] Eosinophils/100 WBC (Bld) 1.5 % 0-5 [facility] Glucose [Mass/Vol] 104 mg/dL 74-106 [facility] Comment on above: Fasting Glucose resu lt from 100 to 125 mg/dL suggests IMPAIRED HOMEOSTASIS per A.D.A. criteria. Hemoglobin (Bld) [Mass/Vol] 11.0 g/dL 12.0-15.0 [facility] Monocytes/100 WBC (Bld) 8.1 % 0-10 [facility] Neutrophils (Bld) [#/Vol] 7.4 10*3/uL 2.0-7.7 [facility] Neutrophils/100 WBC (Bld) 73.6 % 47-70 [facility] Potassium [Moles/Vol] 4.0 mmol/L 3.5-5.1 [facility] Protein [Mass/Vol] 8.0 g/dL 6.4-8.2 [facility] Sodium [Moles/Vol] 135 mmol/L 136-145 [facility] WBC (Bld) [#/Vol] 10.0 10*3/uL 4.4-11.0 [facility] Determination of erythrocyte mean corpuscular volume (MCV)Ordered By: Jose Antonio Dawkins on 06-15-2023 MCV (RBC) [Entitic vol] 81.0 fL 81-99 [facility] Direct bilirubinOrdered By: Jose Antonio Dawkins on 06-15-2023 Bilirubin.direct [Mass/Vol] 0.11 mg/dL 0.00-0.30 [facility] Erythrocyte distribution wid th ratioOrdered By: Jose Antonio Dawkins on 06-15-2023 Erythrocyte distribution width (RBC) [Ratio] 16.0 % 11.6-14.6 [facility] Erythrocyte distribution wid th standard deviationOrdered By: Jose Antonio Dawkins on 06-15-2023 Erythrocyte distribution width (RBC) [Entitic vol] 46.7 fL 35.1-43.9 [facility] Hematocrit Auto (Bld) [Volum e fraction]Ordered By: Jose Antonio Dawkins on 06-15-2023 Hematocrit (Bld) [Volume fraction] 35.7 % 37-47 [facility] Immature granulocytes/100 WB C Auto (Bld)Ordered By: Jose Antonio Dawkins on 06-15-2023 Immature granulocytes/100 WBC (Bld) 1.100 % 0.0-0.9 [facility] Comment on above: IG% - Immature Granu locytes (promyelocytes, myelocytes and metamyelocytes) > 1% indicates that a LEFT SHIFT is Present. Laboratory - Chemistry and C hemistry - challengeOrdered By: Jose Antonio Dawkins on 06-15-2023 ALP [Catalytic activity/Vol] 119 U/L 45-117 [facility] ALT [Catalytic activity/Vol] 23 U/L 13-56 [facility] [facility] CO2 [Moles/Vol] 24.0 mmol/L 21.0-32.0 [facility] Globulin (S) [Mass/Vol] 4.3 g/dL 2.2-4.2 [facility] Lipase [Catalytic activity/Vol] 39 U/L 13-75 [facility] Comment on above: Please note:LIPASE r evised reference range effective 22. New Lipase methodology. Expected to produce lower values than the previous assay method. NEW Reference Range: 13 - 75 U/L Magnesium [Mass/Vol] 1.9 mg/dL 1.6-2.6 [facility] Urea nitrogen/Creatinine [Mass ratio] 18.7 mg/mg 10-20 [facility] Laboratory - Hematology and Cell countsOrdered By: Jsoe Antonio Dawkins on 06-15-2023 MCH (RBC) [Entitic mass] 24.9 pg 27.0-32.0 [facility] MCHC (RBC) [Mass/Vol] 30.8 g/dL 32-36 [facility] Nucleated RBC/100 WBC (Bld) [Ratio] 0 % 0-5 [facility] Platelet mean volume (Bld) [Entitic vol] 10.6 fL 6.2-12.0 [facility] Platelets (Bld) [#/Vol] 342 10*3/uL 150-450 [facility] No Panel InformationOrdered By: Jose Antonio Dawkins on 06-15-2023 D-Dimer Quantitative (PE/DVT) 0.82 FEU/ug/m 0.27-0.49 [facility] Comment on above: D-Dimer ELEVATED (>0 .49): Additional studies and clinicalassessments are indicated to conclude diagnosis of:Deep Vein Thrombosis (DVT) or Pulmonary Embolism (PE) Estimated Creatinine Clearance Calc 190.22 ml/min [facility] Estimated GFR (MDRD) Amer 132 mL/min >60 [facility] Comment on above: GFR Calc Estimated GFR (MDRD) Non-Af Amer 109 mL/min >60 [facility] Comment on above: Non- GFR Calc Troponin I High Sensitivity 5 pg/mL 3.0-54.0 [facility] Comment on above: Please Note: New Mag t Units and Gender Specific Reference Ranges. For more information see Policy Stat Procedure [facility] High Sensitivity Troponin (TNIH) and attachments. RBC Auto (Bld) [#/Vol]Ordere d By: Jose Antonio Dawkins on 06-15-2023 RBC (Bld) [#/Vol] 4.41 10*6/uL 4.2-5.4 [facility] Serum or plasma calcium reginald urement (mass/volume)Ordered By: Jose Antonio Dawkins on 06-15-2023 Calcium [Mass/Vol] 9.7 mg/dL 8.5-10.1 [facility] Serum or plasma creatinine m easurement (mass/volume)Ordered By: Jose Antonio Dawkins on 06-15-2023 Creatinine [Mass/Vol] 0.64 mg/dL 0.55-1.02 [facility] Comment on above: The validity of the calculated GFR & GFRAA in patients over 70 years has not been determined. Clinical correlation is essential. Serum or plasma thyroid stim ulating hormone (TSH) measurement (units/volume)Ordered By: Jose Antonio Dawkins on 06-15-2023 TSH Qn 2.08 uIU/mL 0.358-3.74 [facility] Serum or plasma urea nitroge n measurement (mass/volume)Ordered By: Jose Antonio Dawkins on 06-15-2023 Urea nitrogen [Mass/Vol] 12 mg/dL 7-18 [facility] Thin prep Papanicolaou smear with manual screeningOrdered By: Jose Antonio Dawkins on 06-15-2023 Thin prep Papanicolaou smear with manual screening 3.7 g/dL 3.2-5.0 [facility] Thin prep Papanicolaou smear with manual screening 13 U/L 15-37 [facility] Thin prep Papanicolaou smear with manual screening 4 5-15 [facility] Laboratory - Chemistry and C hemistry - challengeOrdered By: Jac Thompson on 04-07-2023 HCG ( test) Ql (U) Negative [facility] Comment on above: Very dilute urine sp ecimens, as indicated by a low specificgravity, may not contain media sales representative levels of hCG. If is still suspected, a first morning urinespecimen should be collected 48 hours later and tested. Absolute lymphocyte counton 05-15-2022 Lymphocytes Auto (Unsp spec) [#/Vol] 2.00 10*3/uL 0.83-4.51 [facility] Work Phone: Basophil percentageon 2022 Basophils/100 WBC (Bld) 0.7 % 0-1 [facility] Work Phone: Bilirubin [Mass/Vol] 0.40 mg/dL 0.20-1.00 [facility] Work Phone: Comment on above: For patients on eltr ombopag therapy, use of Dimension [facility] TBIL is not recommended. Chloride [Moles/Vol] 104 mmol/L 98-107 [facility] Work Phone: Cholesterol [Mass/Vol] 172 mg/dL <200 [facility] Work Phone: Comment on above: <200 mg/dL Desirable 200-240 mg/dL Borderline >240 mg/dL High Risk Eosinophils/100 WBC (Bld) 4.3 % 0-5 [facility] Work Phone: Glucose [Mass/Vol] 90 mg/dL 74-106 [facility] Work Phone: Neutrophils (Bld) [#/Vol] 5.5 10*3/uL 2.0-7.7 [facility] Work Phone: Neutrophils/100 WBC (Bld) 62.8 % 47-70 [facility] Work Phone: Potassium [Moles/Vol] 4.3 mmol/L 3.5-5.1 [facility] Work Phone: Protein [Mass/Vol] 8.2 g/dL 6.4-8.2 [facility] Work Phone: Sodium [Moles/Vol] 135 mmol/L 136-145 [facility] Work Phone: Triglyceride [Mass/Vol] 69 mg/dL <199 [facility] Work Phone: Comment on above: The drugs N-Acetylcy steine and Metamizole may falsely depress this assay.Serum Triglycerides Reference Interval Normal <150 mg/dL Borderline high 150 - 199 mg/dL High 200 - 499 mg/dL Very High > or = 500 mg/dL WBC (Bld) [#/Vol] 8.8 10*3/uL 4.4-11.0 [facility] Work Phone: Blood erythrocytes count (nu mber/volume)on 05-15-2022 RBC (Bld) [#/Vol] 4.36 10*6/uL 4.2-5.4 [facility] Work Phone: Blood hemoglobin measurement (mass/volume)on 05-15-2022 Hemoglobin (Bld) [Mass/Vol] 11.9 g/dL 12.0-15.0 [facility] Work Phone: Blood lymphocytes/100 leukoc yteson 05-15-2022 Lymphocytes/100 WBC (Bld) 22.7 % 19-41 [facility] Work Phone: Blood monocytes/100 leukocyt eson 05-15-2022 Monocytes/100 WBC (Bld) 8.8 % 0-10 [facility] Work Phone: Blood platelet mean volumeon 05-15-2022 Platelet mean volume (Bld) [Entitic vol] 10.4 fL 6.2-12.0 [facility] Work Phone: Determination of erythrocyte mean corpuscular volume (MCV)on 05-15-2022 MCV (RBC) [Entitic vol] 84.4 fL 81-99 [facility] Work Phone: Hematocrit Auto (Bld) [Volum e fraction]on 05-15-2022 Hematocrit (Bld) [Volume fraction] 36.8 % 37-47 [facility] Work Phone: Laboratory - Chemistry and C hemistry - challengeon 05-15-2022 ALP [Catalytic activity/Vol] 101 U/L 45-117 [facility] Work Phone: ALT [Catalytic activity/Vol] 27 U/L 13-56 [facility] Work Phone: CO2 [Moles/Vol] 26.0 mmol/L 21.0-32.0 [facility] Work Phone: Globulin (S) [Mass/Vol] 4.4 g/dL 2.2-4.2 [facility] Work Phone: Urea nitrogen/Creatinine [Mass ratio] 20.6 mg/mg 10-20 [facility] Work Phone: Laboratory - Hematology and Cell countson 05-15-2022 Erythrocyte distribution width (RBC) [Entitic vol] 44.8 fL 35.1-43.9 [facility] Work Phone: Erythrocyte distribution width (RBC) [Ratio] 14.6 % 11.6-14.6 [facility] Work Phone: Immature granulocytes/100 WBC (Bld) 0.700 % 0.0-0.9 [facility] Work Phone: Comment on above: IG% - Immature Granu locytes (promyelocytes, myelocytes and metamyelocytes) > 1% indicates that a LEFT SHIFT is Present. MCH (RBC) [Entitic mass] 27.3 pg 27.0-32.0 [facility] Work Phone: Nucleated RBC/100 WBC (Bld) [Ratio] 0 % 0-5 [facility] Work Phone: MCHC Auto (RBC) [Mass/Vol]on 05-15-2022 MCHC (RBC) [Mass/Vol] 32.3 g/dL 32-36 [facility] Work Phone: No Panel Informationon 05-15 Estimated GFR (MDRD) Amer 165 mL/min >60 [facility] Work Phone: Comment on above: GFR Calc Estimated GFR (MDRD) Non-Af Amer 136 mL/min >60 [facility] Work Phone: Comment on above: Non- GFR Calc Platelets bldon 05-15-2022 Platelets (Bld) [#/Vol] 333 10*3/uL 150-450 [facility] Work Phone: Serum or plasma albumin reginald urement (mass/volume)on 05-15-2022 Albumin [Mass/Vol] 3.8 g/dL 3.2-5.0 [facility] Work Phone: Serum or plasma albumin/glob ulin mass ratioon 05-15-2022 Albumin/Globulin [Mass ratio] 0.9 {ratio} 0.9-2.4 [facility] Work Phone: Serum or plasma calcium reginald urement (mass/volume)on 05-15-2022 Calcium [Mass/Vol] 9.4 mg/dL 8.5-10.1 [facility] Work Phone: Serum or plasma cholesterol in HDL measurement (mass/volume)on 05-15-2022 Cholesterol in HDL [Mass/Vol] 61 mg/dL >40 [facility] Work Phone: Comment on above: The drugs N-Acetylcy steine and Metamizole may falsely depress this assay. Reference Range HDL <40 mg/dL Low HDL Cholesterol HDL >or= 60 mg/dL High HDL Cholesterol Serum or plasma cholesterol in VLDL measurement (mass/volume)on 05-15-2022 Cholesterol in VLDL [Mass/Vol] 14 mg/dL 5-40 [facility] Work Phone: Serum or plasma creatinine m easurement (mass/volume)on 05-15-2022 Creatinine [Mass/Vol] 0.53 mg/dL 0.55-1.02 [facility] Work Phone: Comment on above: The validity of the calculated GFR & GFRAA in patients over 70 years has not been determined. Clinical correlation is essential. Serum or plasma low density lipoprotein (LDL) cholesterol measurement (mass/volume)on 05-15-2022 Cholesterol in LDL [Mass/Vol] 97 mg/dL 0-130 [facility] Work Phone: Serum or plasma urea nitroge n measurement (mass/volume)on 05-15-2022 Urea nitrogen [Mass/Vol] 11 mg/dL 7-18 [facility] Work Phone: Thin prep Papanicolaou smear with manual screeningon 05-15-2022 Thin prep Papanicolaou smear with manual screening 22 U/L 15-37 [facility] Work Phone: Thin prep Papanicolaou smear with manual screening 5 5-15 [facility] Work Phone: Laboratory - Chemistry and C hemistry - challengeon 03-01-2022 HCG ( test) Ql (U) Negative [facility] Work Phone: Comment on above: Very dilute urine sp ecimens, as indicated by a low specificgravity, may not contain media sales representative levels of hCG. If is still suspected, a first morning urinespecimen should be collected 48 hours later and tested. COVIDon 04-18-2020 Date of Onset [id number] [facility] ([place]) Comment on above: Performed By: #### C OVID #### [address] [address] Employed in Healthcare No [facility] ([place] Comment on above: Performed By: #### C OVID #### [place] [address] [place], [place] [address] First Test No [facility] ([place] Comment on above: Performed By: #### C OVID #### [address] [place] [place], [place] [address] Hospitalized No [facility] ([place] Comment on above: Performed By: #### C OVID #### [address] [place], [place] [address] ICU No [facility] ([place] Comment on above: Performed By: #### C OVID #### [address] [place] [id number] [place] [address] Unknown [facility] ([place] Comment on above: Performed By: #### C OVID #### [address] [place] [address] Resides in Congregate Care Setting No [facility] ([place] Comment on above: Performed By: #### C OVID #### [address] [address] SARS-CoV-2 (COVID-19) RNA ANGELO+probe Ql (Unsp spec) See Below Normal [facility] ([place]) Comment on above: Result Comment: Naso pharyngeal Swab Performed By: [facility] [place] [address] Roustabout: Jermain Viveros III, M.D. CLIA#: [id number] Phone#: Performed By: #### C OVID #### [place] [address] Result Comment: Nega tive Negative for COVID19 (SARS CoV2) by PCR. This test was developed and its performance characteristics determined by [facility] [place]. This test has been authorized by FDA under an Emergency Use Authorization (EUA). This test has been validated in accordance with the FDA's Guidance Document Policy for Diagnostics Testing in Laboratories Certified to Perform High Complexity Testing under CLIA prior to Emergency use Authorization for Coronavirus Disease 2019 during the Public Health Emergency issued on July 07, 2019. Performed By: [facility] [place] [address] Roustabout: Jermain Viveros III, M.D. CLIA#: [id number] Phone#: Symptomatic as Defined by [facility] Yes Normal [facility] ([place]) Comment on above: Performed By: #### C OVID #### [address] [place] [address] [place], [place] [address] RESCVIDon 10-12-2019 Adenovirus Not detected Normal Not Detected [facility] ([place]) Comment on above: Performed By: #### R ESCVID #### [place] [id number] [place] [address] Bordetella Parapertussis Not detected Normal Not Detected [facility] ([place]) Comment on above: Performed By: #### R ESCVID #### [address] [address] Bordetella Pertussis Not detected Normal Not Detected [facility] ([place]) Comment on above: Performed By: #### R ESCVID #### [address] [address] Chlamydophila pneumoniae Not detected Normal Not Detected [facility] ([place]) Comment on above: Performed By: #### R ESCVID #### [address] [address] Coronavirus 229E (Not COVID-19) Not detected Normal Not Detected [facility] ([place]) Comment on above: Performed By: #### R ESCVID #### [address] [address] Coronavirus HKU1 (Not COVID-19) Not detected Normal Not Detected [facility] ([place]) Comment on above: Performed By: #### R ESCVID #### [facility] [address] [place] [address] Coronavirus NL63 (Not COVID-19) Not detected Normal Not Detected [facility] ([place]) Comment on above: Performed By: #### R ESCVID #### [address] [address] Coronavirus OC43 (Not COVID-19) Not detected Normal Not Detected [facility] ([place]) Comment on above: Performed By: #### R ESCVID #### [facility] [address] [place] [address] Human Metapneumovirus Not detected Normal Not Detected [facility] ([place]) Comment on above: Performed By: #### R ESCVID #### [facility] [address] [place] [address] Influenza A Not detected Normal Not Detected [facility] ([place]) Comment on above: Performed By: #### R ESCVID #### [facility] [address] [place] [address] Influenza B Not detected Normal Not Detected [facility] ([place]) Comment on above: Performed By: #### R ESCVID #### [facility] [address] [place] [address] Mycoplasma pneumoniae Not detected Normal Not Detected [facility] ([place]) Comment on above: Performed By: #### R ESCVID #### [facility] [address] [place] [address] Parainfluenza 1 Not detected Normal Not Detected [facility] ([place]) Comment on above: Performed By: #### R ESCVID #### [facility] [address] [place] [address] Parainfluenza 2 Not detected Normal Not Detected [facility] ([place]) Comment on above: Performed By: #### R ESCVID #### [facility] [address] [place] [address] Parainfluenza 3 Not detected Normal Not Detected [facility] ([place]) Comment on above: Performed By: #### R ESCVID #### [facility] [address] [place] [address] Parainfluenza 4 Not detected Normal Not Detected [facility] ([place]) Comment on above: Performed By: #### R ESCVID #### [facility] [address] [place] [address] Respiratory Syncytial Virus Not detected Normal Not Detected [facility] ([place]) Comment on above: Performed By: #### R ESCVID #### [facility] [address] [place] [address] Rhinovirus/Enterovirus Not detected Normal Not Detected [facility] ([place]) Comment on above: Performed By: #### R ESCVID #### [address] [address] SARS-CoV-2 (COVID-19) RNA ANGELO+probe Ql (Unsp spec) Not detected Normal Not Detected [facility] ([place]) Comment on above: Result Comment: This test is being used under the FDA EUA procedure. This assay has been validated in the [facility] for use with nasopharyngeal specimens in [facility]. If a non-validated specimen or test collection method was used, please interpret the results with caution, especially if the test result is negative. A positive test result for COVID-19 indicates that RNA from SARS-CoV-2 was detected, and the patient is infected with the virus and presumed to be contagious. Laboratory test results should always be considered in the context of clinical observations and epidemiological data in making a final diagnosis and patient management decisions. Patient management should follow current CDC guidelines. A negative test result for this test means that SARS-CoV-2 RNA was not present in the specimen above the limit of detection. However, a negative result does not rule out COVID-19 and should not be used as the sole basis for treatment or patient management decisions. A negative result does not exclude the possibility of COVID-19. When diagnostic testing is negative, the possibility of a false negative result should be considered in the context of a patient?s recent exposures and the presence of clinical signs and symptoms consistent with COVID-19. The possibility of a false negative result should especially be considered if the patient?s recent exposures or clinical presentation indicate that COVID-19 is likely, and diagnostic tests for other causes of illness (e.g., other respiratory illness) are negative. If COVID-19 is still suspected based on exposure history together with other clinical findings, re-testing should be considered by healthcare providers in consultation with public health authorities. Performed By: #### R ESCVID #### [address] [address] Vital Signs Date Time Vital Sign Value Performing Clinician Facility 10-26-2024 09:26-0400 Body height 172.[address] Alexx Briseno MD Work Phone: [facility] 10-26-2024 09:26-0400 Body mass index (BMI) [Ratio] 57.2 kg/m2 Dr. Alexx Briseno MD Work Phone: [facility] 10-26-2024 09:26-0400 Body temperature 97.5 [degF] Dr. Alexx Briseno MD Work Phone: [facility] 10-26-2024 09:26-0400 Body weight 170.[address] Alexx Briseno MD Work Phone: [facility] 10-26-2024 09:26-0400 Diastolic blood pressure 92 mm[Hg] Dr. Alexx Briseno MD Work Phone: [facility] 10-26-2024 09:26-0400 Heart rate 88 /min Dr. Alexx Briseno MD Work Phone: [facility] 10-26-2024 09:26-0400 Respiratory rate 16 /min Dr. Alexx Briseno MD Work Phone: [facility] 10-26-2024 09:26-0400 SaO2% (BldA) [Mass fraction] 97 % Dr. Alexx Briseno MD Work Phone: [facility] 10-26-2024 09:26-0400 Systolic blood pressure 150 mm[Hg] Dr. Alexx Briseno MD Work Phone: [facility] 08-15-2024 09:05-0400 Body height 172.[address] René Zhao MD Work Phone: [facility] 08-15-2024 09:05-0400 Body mass index (BMI) [Ratio] 56.4 kg/m2 Dr. René Zhao MD Work Phone: [facility] 08-15-2024 09:05-0400 Body temperature 96.2 [degF] Dr. René Zhao MD Work Phone: [facility] 08-15-2024 09:05-0400 Body weight 168.[address] René Zhao MD Work Phone: [facility] 08-15-2024 09:05-0400 Diastolic blood pressure 73 mm[Hg] Dr. René Zhao MD Work Phone: [facility] 08-15-2024 09:05-0400 Heart rate 100 /min Dr. René Zhao MD Work Phone: [facility] 08-15-2024 09:05-0400 Respiratory rate 17 /min Dr. René Zhao MD Work Phone: [facility] 08-15-2024 09:05-0400 SaO2% (BldA) [Mass fraction] 97 % Dr. René Zhao MD Work Phone: [facility] 08-15-2024 09:05-0400 Systolic blood pressure 114 mm[Hg] Dr. René Zhao MD Work Phone: [facility] 07-23-2024 13:29-0400 Body height 172.[address] René Zhao MD Work Phone: [facility] 07-23-2024 13:29-0400 Body mass index (BMI) [Ratio] 56.8 kg/m2 Dr. René Zhao MD Work Phone: [facility] 07-23-2024 13:29-0400 Body temperature 97 [degF] Dr. René Zhao MD Work Phone: [facility] 07-23-2024 13:29-0400 Body weight 169.[address] René Zhao MD Work Phone: [facility] 07-23-2024 13:29-0400 Diastolic blood pressure 90 mm[Hg] Dr. René Zhao MD Work Phone: [facility] 07-23-2024 13:29-0400 Heart rate 82 /min Dr. René Zhao MD Work Phone: [facility] 07-23-2024 13:29-0400 Respiratory rate 18 /min Dr. René Zhao MD Work Phone: [facility] 07-23-2024 13:29-0400 SaO2% (BldA) [Mass fraction] 98 % Dr. René Zhao MD Work Phone: [facility] 07-23-2024 13:29-0400 Systolic blood pressure 142 mm[Hg] Dr. René Zhao MD Work Phone: [facility] 04-13-2024 08:34-0500 Diastolic blood pressure 102 mm[Hg] Dr. René Zhao MD Work Phone: [facility] 04-13-2024 08:34-0500 Systolic blood pressure 150 mm[Hg] Dr. René Zhao MD Work Phone: [facility] 04-13-2024 08:34-0500 Heart rate 102 /min Dr. René Zhao MD Work Phone: [facility] 04-13-2024 08:00-0500 Body height 172.[address] René Zhao MD Work Phone: [facility] 04-13-2024 08:00-0500 Body temperature 97.5 [degF] Dr. René Zhao MD Work Phone: [facility] 04-13-2024 08:00-0500 Respiratory rate 16 /min Dr. René Zhao MD Work Phone: [facility] 04-13-2024 08:00-0500 SaO2% (BldA) [Mass fraction] 98 % Dr. René Zhao MD Work Phone: [facility] 03-26-2024 17:03-0500 Body mass index (BMI) [Ratio] 54.17 kg/m2 Geo Murphy MD Work Phone: [facility] 03-26-2024 17:03-0500 Body temperature 98.4 [degF] Geo Murphy MD Work Phone: [facility] 03-26-2024 17:03-0500 Body weight 167.6 kg Geo Murphy MD Work Phone: [facility] 03-26-2024 17:03-0500 Diastolic blood pressure 88 mm[Hg] Geo Murphy MD Work Phone: [facility] 03-26-2024 17:03-0500 Heart rate 114 /min Geo Murphy MD Work Phone: [facility] 03-26-2024 17:03-0500 Respiratory rate 18 /min Geo Murphy MD Work Phone: [facility] 03-26-2024 17:03-0500 SaO2% (BldA) [Mass fraction] 96 % Geo Murphy MD Work Phone: [facility] 03-26-2024 17:03-0500 Systolic blood pressure 142 mm[Hg] Geo Murphy MD Work Phone: [facility] 03-04-2024 14:31-0400 Body mass index (BMI) [Ratio] 53.04 kg/m2 Krislyn Aberegg PA Work Phone: [facility] 03-04-2024 14:31-0400 Body temperature 98.29 [degF] Krislyn Aberegg PA Work Phone: [facility] 03-04-2024 14:31-0400 Body weight 164.1 kg Krislyn Aberegg PA Work Phone: [facility] 03-04-2024 14:31-0400 Heart rate 103 /min Krislyn Aberegg PA Work Phone: [facility] 03-04-2024 14:31-0400 Respiratory rate 18 /min Krislyn Aberegg PA Work Phone: [facility] 03-04-2024 14:31-0400 SaO2% (BldA) [Mass fraction] 95 % Krislyn Aberegg PA Work Phone: [facility] 07-18-2023 08:29-0400 Body height 172.[address] René Zhao Work Phone: [facility] 07-18-2023 08:29-0400 Body mass index (BMI) [Ratio] 53.1 kg/m2 Dr. René Zhao Work Phone: [facility] 07-18-2023 08:29-0400 Body temperature 97.2 [degF] Dr. René Zhao Work Phone: [facility] 07-18-2023 08:29-0400 Body weight 158.[address] René Zhao Work Phone: [facility] 07-18-2023 08:29-0400 Diastolic blood pressure 94 mm[Hg] Dr. René Zhao Work Phone: [facility] 07-18-2023 08:29-0400 Heart rate 95 /min Dr. René Zhao Work Phone: [facility] 07-18-2023 08:29-0400 Respiratory rate 17 /min Dr. René Zhao Work Phone: [facility] 07-18-2023 08:29-0400 SaO2% (BldA) [Mass fraction] 97 % Dr. René Zhao Work Phone: [facility] 07-18-2023 08:29-0400 Systolic blood pressure 146 mm[Hg] Dr. René Zhao Work Phone: [facility] 06-29-2023 14:22-0500 Body height 172.[address] Bijan Chapin Work Phone: [facility] 06-29-2023 14:22-0500 Body mass index (BMI) [Ratio] 53.2 kg/m2 Dr. Bijan Chapin Work Phone: [facility] 06-29-2023 14:22-0500 Body temperature 97 [degF] Dr. Bijan Chapin [facility] [facility] 06-29-2023 14:22-0500 Body weight 158.[address] Bijan Chapin Work Phone: [facility] 06-29-2023 14:22-0500 Diastolic blood pressure 80 mm[Hg] Dr. Bijan Chapin Work Phone: [facility] 06-29-2023 14:22-0500 Heart rate 120 /min Dr. Bijan Chapin Work Phone: [facility] 06-29-2023 14:22-0500 Respiratory rate 16 /min Dr. Bijan Chapin Work Phone: [facility] 06-29-2023 14:22-0500 SaO2% (BldA) [Mass fraction] 99 % Dr. Bijan Chapin Work Phone: [facility] 06-29-2023 14:22-0500 Systolic blood pressure 160 mm[Hg] Dr. Bijan Chapin Work Phone: [facility] 06-15-2023 09:47-0500 Diastolic blood pressure 77 mm[Hg] Dr. Bijan Chapin Work Phone: [facility] 06-15-2023 09:47-0500 Heart rate 72 /min Dr. Bijan Chapin Work Phone: [facility] 06-15-2023 09:47-0500 Respiratory rate 16 /min Dr. Bijan Chapin Work Phone: [facility] 06-15-2023 09:47-0500 SaO2% (BldA) [Mass fraction] 98 % Dr. Bijan Chapin Work Phone: [facility] 06-15-2023 09:47-0500 Systolic blood pressure 134 mm[Hg] Dr. Bijan Chapin Work Phone: [facility] 06-15-2023 06:32-0500 Body height 172.[address] Bijan Chapin Work Phone: [facility] 06-15-2023 06:32-0500 Body mass index (BMI) [Ratio] 53.4 kg/m2 Dr. Bijan Chapin Work Phone: [facility] 06-15-2023 06:32-0500 Body temperature 98.2 [degF] Dr. Bijan Chapin Work Phone: [facility] 06-15-2023 06:32-0500 Body weight 159.[address] Bijan Chapin Work Phone: [facility] 04-07-2023 08:21-0500 Body temperature 99.3 [degF] Dr. Bijan Chapin Work Phone: [facility] 04-07-2023 08:21-0500 Diastolic blood pressure 78 mm[Hg] Dr. Bijan Chapin Work Phone: [facility] 04-07-2023 08:21-0500 Heart rate 87 /min Dr. Bijan Chapin Work Phone: [facility] 04-07-2023 08:21-0500 Respiratory rate 18 /min Dr. Bijan Chapin Work Phone: [facility] 04-07-2023 08:21-0500 SaO2% (BldA) [Mass fraction] 95 % Dr. Bijan Chapin Work Phone: [facility] 04-07-2023 08:21-0500 Systolic blood pressure 131 mm[Hg] Dr. Bijan Chapin Work Phone: [facility] 04-07-2023 08:06-0500 Inhaled oxygen flow rate 4 L/min Dr. Bijan Chapin Work Phone: [facility] 04-07-2023 06:48-0500 Body height 172.[address] Bijan Chapin Work Phone: [facility] 04-07-2023 06:48-0500 Body mass index (BMI) [Ratio] 51.2 kg/m2 Dr. Bijan Chapin Work Phone: [facility] 04-07-2023 06:48-0500 Body weight [address] Bijan Chapin Work Phone: [facility] 03-30-2023 15:56-0500 Body mass index (BMI) [Ratio] 51.9 kg/m2 Dr. Bijan Chapin Work Phone: [facility] 03-30-2023 15:56-0500 Body temperature 97 [degF] Dr. Bijan Chapin Work Phone: [facility] 03-30-2023 15:56-0500 Body weight 154.[address] Bijan Chapin Work Phone: [facility] 03-30-2023 15:56-0500 Diastolic blood pressure 80 mm[Hg] Dr. Bijan Chapin Work Phone: [facility] 03-30-2023 15:56-0500 Heart rate 96 /min Dr. Bijan Chapin Work Phone: [facility] 03-30-2023 15:56-0500 Respiratory rate 18 /min Dr. Bijan Chapin Work Phone: [facility] 03-30-2023 15:56-0500 SaO2% (BldA) [Mass fraction] 99 % Dr. Bijan Chapin Work Phone: [facility] 03-30-2023 15:56-0500 Systolic blood pressure 136 mm[Hg] Dr. Bijan Chapin Work Phone: [facility] 05-13-2022 17:26-0500 Body height 172.[address] Bijan Chapin Work Phone: [facility] Work Phone: 05-13-2022 17:26-0500 Body mass index (BMI) [Ratio] 48.6 kg/m2 Dr. Bijan Chapin Work Phone: [facility] Work Phone: 05-13-2022 17:26-0500 Body temperature 98.1 [degF] Dr. Bijan Chapin Work Phone: [facility] Work Phone: 05-13-2022 17:26-0500 Body weight 145.[address] Bijan Chapin Work Phone: [facility] Work Phone: 05-13-2022 17:26-0500 Diastolic blood pressure 84 mm[Hg] Dr. Bijan Chapin Work Phone: [facility] Work Phone: 05-13-2022 17:26-0500 Heart rate 94 /min Dr. Bijan Chapin Work Phone: [facility] Work Phone: 05-13-2022 17:26-0500 Respiratory rate 14 /min Dr. Bijan Chapin Work Phone: [facility] Work Phone: 05-13-2022 17:26-0500 SaO2% (BldA) [Mass fraction] 98 % Dr. Bijan Chapin Work Phone: [facility] Work Phone: 05-13-2022 17:26-0500 Systolic blood pressure 118 mm[Hg] Dr. Bijan Chapin Work Phone: [facility] Work Phone: 03-15-2022 13:29-0500 Body mass index (BMI) [Ratio] 48.2 kg/m2 Dr. Bijan Chapin Work Phone: [facility] Work Phone: 03-15-2022 13:29-0500 Body weight 143.[address] Bijan Chapin Work Phone: [facility] Work Phone: 03-15-2022 13:29-0500 Diastolic blood pressure 86 mm[Hg] Dr. Bijan Chapin Work Phone: [facility] Work Phone: 03-15-2022 13:29-0500 Heart rate 100 /min Dr. Bijan Chapin Work Phone: [facility] Work Phone: 03-15-2022 13:29-0500 SaO2% (BldA) [Mass fraction] 98 % Dr. Bijan Chapin Work Phone: [facility] Work Phone: 03-15-2022 13:29-0500 Systolic blood pressure 144 mm[Hg] Dr. Bijan Chapin Work Phone: [facility] Work Phone: 03-01-2022 07:42-0400 Body temperature 97.2 [degF] Dr. Bijan Chapin Work Phone: [facility] Work Phone: 03-01-2022 07:42-0400 Diastolic blood pressure 70 mm[Hg] Dr. Bijan Chapin Work Phone: [facility] Work Phone: 03-01-2022 07:42-0400 Heart rate 81 /min Dr. Bijan Chapin Work Phone: [facility] Work Phone: 03-01-2022 07:42-0400 Respiratory rate 16 /min Dr. Bijan Chapin Work Phone: [facility] Work Phone: 03-01-2022 07:42-0400 SaO2% (BldA) [Mass fraction] 100 % Dr. Bijan Chapin Work Phone: [facility] Work Phone: 03-01-2022 07:42-0400 Systolic blood pressure 115 mm[Hg] Dr. Bijan Chapin Work Phone: [facility] Work Phone: 03-01-2022 06:28-0400 Body height 172.[address] Bijan Chapin Work Phone: [facility] Work Phone: 03-01-2022 06:28-0400 Body mass index (BMI) [Ratio] 48.2 kg/m2 Dr. Bijan Chapin Work Phone: [facility] Work Phone: 03-01-2022 06:28-0400 Body weight [address] Bijan Chapin Work Phone: [facility] Work Phone: 12-18-2021 13:00-0400 Body mass index (BMI) [Ratio] 48.2 kg/m2 Dr. Bijan Chapin Work Phone: [facility] Work Phone: 12-18-2021 13:00-0400 Body weight 143.[address] Bijan Chapin Work Phone: [facility] Work Phone: 12-18-2021 13:00-0400 Diastolic blood pressure 81 mm[Hg] Dr. Bijan Chapin Work Phone: [facility] Work Phone: 12-18-2021 13:00-0400 Heart rate 112 /min Dr. Bijan Chapin Work Phone: [facility] Work Phone: 12-18-2021 13:00-0400 SaO2% (BldA) [Mass fraction] 97 % Dr. Bijan Chapin Work Phone: [facility] Work Phone: 12-18-2021 13:00-0400 Systolic blood pressure 129 mm[Hg] Dr. Bijan Chapin Work Phone: [facility] Work Phone: Encounters Encounter Date Encounter Type Care Provider Facility Start: 10-26-2024 End: 10-26-[address] Alexx Briseno MD Work Phone: [facility] Work Phone: Start: 10-26-2024 End: 10-26-[address] René Zhao MD -[facility] Work Phone: Start: 09-13-2024 End: 09-13-[address] Alexx Briseno MD Work Phone: [facility] Work Phone: Start: 09-13-2024 End: 09-13-[address] René Zhao MD -Sleep Lab Work Phone: Start: 09-12-2024 Non-patient / Non-visit Dr. Ba Shelton DO -[facility] Start: 09-12-2024 End: 09-13-[address] Alexx Briseno MD Work Phone: [facility] Work Phone: Start: 09-12-2024 End: 09-12-[address] René Zhao MD -Pulmonary Services/Neurology Work Phone: Start: 09-12-2024 End: 09-12-2024 ambulatory René Zhao Facility:[facility] Start: 08-16-2024 End: 08-16-[address] René Zhao MD Work Phone: [facility] Work Phone: Start: 08-16-2024 End: 08-16-[address] René Zhao MD -Sleep Lab Work Phone: Start: 08-15-2024 End: 08-15-[address] Alexx Briseno MD -[facility] Work Phone: Start: 08-15-2024 End: 08-16-2024 ambulatory René Zhao Facility:[facility] Start: 07-23-2024 End: 07-23-[address] René Zhao MD -[facility] Work Phone: Start: 07-23-2024 End: 07-23-[address] René Zhao MD Work Phone: [facility] Work Phone: Start: 07-23-2024 End: 07-23-2024 ambulatory René Zhao Facility:[facility] Start: 07-05-2024 End: 07-05-[address] René Zhao MD Work Phone: [facility] Work Phone: Start: 07-05-2024 End: 07-05-[address] Alexx Briseno MD -Ultrasound, [facility] Work Phone: Start: 07-05-2024 End: 07-05-2024 ambulatory Alexx Briseno Facility:[facility] Start: 05-14-2024 End: 05-14-2024 Patient encounter procedure Fortunato Foster DO -[facility] Work Phone: Start: 05-14-2024 End: 05-14-2024 ambulatory René Zhao Facility:[facility] Start: 04-13-2024 End: 04-13-[address] René Zhao MD -[facility] Work Phone: Start: 04-13-2024 End: 04-13-2024 ambulatory René Zhao Facility:[facility] Start: 04-13-2024 End: 04-13-2024 ambulatory [facility] Facility:[facility] Start: 03-26-2024 End: 03-26-2024 Subsequent hospital visit by physician [facility] Work Phone: Radiology Comment on above: Subacute cough [R05. 2] Start: 03-26-2024 End: 03-26-2024 ambulatory RENÉ ZHAO Facility:[facility] Start: 03-26-2024 End: 03-26-2024 Office outpatient visit 25 minutes Geo Murphy MD Work Phone: [facility] Comment on above: Subacute cough (Prim maribell Dx); Wheezing Start: 03-04-2024 End: 03-04-2024 ambulatory RENÉ KINGTOI Facility:[facility] Start: 03-04-2024 End: 03-04-2024 Patient encounter procedure Yoselin GREENWOOD Work Phone: [facility] Comment on above: Lower resp. tract in fection (Primary Dx); Wheezing Start: 10-20-2023 End: 10-20-2023 ambulatory René Zhao Facility:[facility] Start: 10-20-2023 End: 10-20-2023 ambulatory René Zhao Facility:[facility] Start: 08-22-2023 End: 08-22-[address] René Zhao Work Phone: [facility] Work Phone: Start: 08-22-2023 End: 08-22-[address] René Zhao Work Phone: [facility] Work Phone: Start: 08-18-2023 End: 08-18-[address] René Zhao Work Phone: [facility] Work Phone: Start: 08-18-2023 End: 08-18-[address] René Zhao Work Phone: [facility] Work Phone: Start: 07-18-2023 End: 07-18-[address] René Zhao Work Phone: [facility] Work Phone: Start: 07-18-2023 End: 07-18-[address] René Zhao Work Phone: [facility]-Laboratory, Specimen Work Phone: Start: 07-18-2023 End: 07-18-[address] René Zhao Work Phone: [facility] Work Phone: Start: 07-05-2023 End: 07-05-[address] Bijan Chapin Work Phone: [facility] Work Phone: Start: 07-05-2023 End: 07-05-[address] Bijan Chapin Work Phone: [facility] Work Phone: Start: 06-29-2023 End: 06-29-[address] Biajn Chapin Work Phone: [facility] Work Phone: Start: 06-15-2023 End: 06-15-2023 Emergency department patient visit Dr. Bijan Chapin Work Phone: [facility]-Emergency Department Work Phone: Start: 05-10-2023 End: 05-10-[address] Bijan Chapin Work Phone: [facility] Work Phone: Start: 04-07-2023 Non-patient / Non-visit Dr. Bijan Chapin Work Phone: [facility] Start: 04-07-2023 End: 04-07-2023 Admission to same day surgery center Dr. Bijan Chapin Work Phone: [facility]-Endoscopy Work Phone: Start: 04-07-2023 End: 04-07-[address] Bijan Chapin Work Phone: [facility] Work Phone: Start: 03-30-2023 End: 03-30-[address] Bijan Chapin Work Phone: [facility] Work Phone: Start: 03-15-2023 End: 03-15-[address] Bijan Chapin Work Phone: [facility] Work Phone: Start: 05-15-2022 End: 05-15-[address] Bijan Chapin Work Phone: [facility] Work Phone: Start: 05-15-2022 End: 05-15-[address] Bijan Chapin Work Phone: [facility]-Laboratory Start: 05-13-2022 End: 05-13-[address] Bijan Chapin Work Phone: [facility] Start: 03-15-2022 End: 03-15-[address] Bijan Chapin Work Phone: [facility] Start: 03-01-2022 Non-patient / Non-visit Dr. Bijan Chapin Work Phone: [facility] Start: 03-01-2022 End: 03-01-2022 Admission to same day surgery center Dr. Bijan Chapin Work Phone: [facility]-Endoscopy Start: 03-01-2022 End: 03-01-[address] Bijan Chapin Work Phone: [facility] Work Phone: Start: 12-18-2021 End: 12-18-[address] Bijan Chapin Work Phone: [facility] Procedures Date Procedure Procedure Detail Performing Clinician Start: 07-23-2024 Total iron binding capacity measurement Dr. Alexx Briseno MD Work Phone: Start: 07-05-2024 US scan of thyroid Dr. René Zhao MD Work Phone: Start: 03-26-2024 Radiologic exam chest 2 views Geo Allan MD Work Phone: Start: 08-22-[address] René Zhao Work Phone: Start: 08-22-[address] René Zhao Work Phone: Start: 08-18-[address] René Zhao Work Phone: Start: 07-05-2023 US scan of thyroid Dr. Bijan Chapin Work Phone: Start: 06-15-2023 CT angiography of chest with contrast Dr. Bijan Chapin Work Phone: Start: 06-15-2023 Plain chest X-ray Dr. iBjan Chapin Work Phone: Start: 04-07-[address] Bijan canseco Work Phone: Start: 03-01-[address] Bijan canseco Work Phone: Plan of Treatment Date Care Activity Detail Author Start: 12-16-2024 Screening for malignant neoplasm of cervix Cervical Cancer Screening [facility] Start: 10-26-2024 CBC W Auto Differential panel - Blood [facility] Start: 10-26-2024 Comprehensive metabolic 2000 panel - Serum or Plasma [facility] Start: 10-26-2024 Lipid 1996 panel - Serum or Plasma [facility] Start: 01-08-2024 Covid-19 Vaccine ( season) Covid-19 Vaccine () [facility] Start: 01-08-2024 Influenza vaccination Influenza Vaccine (#1) [facility] Start: 06-29-2023 Patient referral [facility] Work Phone: Start: 04-07-2023 Egd transoral biopsy single/multiple EGD BIOPSY SINGLE/MULTIPLE [facility] Start: 04-07-2023 Patient discharge [facility] Start: 03-01-2022 Egd transoral biopsy single/multiple EGD BIOPSY SINGLE/MULTIPLE [facility] Work Phone: Start: 03-01-2022 Patient discharge [facility] Work Phone: Start: 2003 Hepatitis B Vaccine (1 of 3 - 19+ 3-dose series) Hepatitis B Vaccine (1 of 3 - 19+ 3-dose series) [facility] Start: 2003 Urine microalbumin profile DTaP,Tdap,Td Vaccine (1 - Tdap) [facility] Start: 2002 Anxiety Screening Anxiety Screening [facility] Start: 2002 Depression Screening Depression Screening [facility] Start: 2002 Hepatitis C screening Hepatitis C Screening [facility] Start: 2002 HIV screening HIV Screening [facility] Alanine aminotransfe rase [Enzymatic activity/volume] in Serum or Plasma [facility] Albumin [Mass/volume ] in Serum or Plasma [facility] Alkaline phosphatase [Enzymatic activity/volume] in Serum or Plasma [facility] Anion gap in Serum o r Plasma [facility] Bilirubin, total measurement [facility] BUN/Creatinine ratio [facility] Calcium [Mass/volume ] in Serum or Plasma [facility] Carbon dioxide, tota l [Moles/volume] in Central venous blood [facility] CBC W Auto Different ial panel - Blood [facility] Cholesterol [Mass/vo lume] in Serum or Plasma [facility] Cholesterol in HDL [Mass/volume] in Serum or Plasma [facility] Creatinine [Mass/vol ume] in Serum or Plasma [facility] Erythrocyte mean corpuscular volume determination [facility] Glucose [Mass/volume ] in Serum or Plasma [facility] Hematocrit [Volume Fraction] of Blood [facility] Hemoglobin [Mass/vol ume] in Blood [facility] Leukocytes [#/volume ] in Blood [facility] Lipid 1996 panel - S jalil or Plasma [facility] Low density lipoprot ein cholesterol measurement [facility] Mean corpuscular hem oglobin concentration determination [facility] Mean corpuscular hem oglobin determination [facility] Measurement of renal function [facility] MG Breast - bilatera l Screening [facility] Neutrophil count [facility] Neutrophil percent differential count [facility] Patient Education Understanding Tachycardia ED Chest Pain, Uncertain Cause [facility] Work Phone: Patient referral [facility] Work Phone: Platelets [#/volume] in Blood [facility] Polysomnography [facility] Potassium measurement [facility] Red blood cell count [facility] Red cell distributio n width determination [facility] Serum chloride measurement [facility] Sodium measurement [facility] Total cholesterol:HD L ratio measurement [facility] Total protein measurement [facility] Triglycerides measurement [facility] Urea nitrogen [Mass/ volume] in Serum or Plasma [facility] US Thyroid gland [facility] VLDL cholesterol measurement [facility] Immunizations Immunization Date Immunization Notes Care Provider [facility] 04-13-2024 influenza, injectabl e, madin tristen canine kidney, preservative free Dr. René Zhao MD Work Phone: [facility] 02-24-2023 Covid (Spikevax) Dr. Sang Zhao MD Work Phone: [facility] 02-14-2023 influenza, injectabl e, quadrivalent, preservative free Dr. René Zhao MD Work Phone: [facility] 02-14-2023 influenza virus vaccine, unspecified formulation Yoselin GREENWOOD Work Phone: [facility] 03-26-2022 Covid Pfizer Bivalen t Booster Dr. René Zhao MD Work Phone: [facility] 04-29-2021 Covid (Moderna) Dr. Estephanie Zhao MD Work Phone: [facility] 08-26-2020 Covid (Moderna) Dr. Estephanie Zhao MD Work Phone: [facility] 07-29-2020 [facility] Dr. Estephanie Zhao MD Work Phone: [facility] 02-18-2020 influenza, injectabl e, quadrivalent, preservative free Dr. René Zaho MD Work Phone: [facility] Payers Date Payer Category Payer Private Health Insurance [employer] PPO [id number] 2024-[facility] [phone] [address] [place] [address] PPO [id number] 2023 Self-pay [id number] 2023 Unknown [id number] Private Health Insurance [id number] Private Health Insurance [facility] [id number] Unknown [employer] [id number] Unknown [id number] 62 Unknown [id number] 62 Unknown [id number] 62 Unknown [id number] 62 Unknown [id number] 62 Unknown [id number] 62 Unknown [id number] 62 Unknown [id number] 62 Unknown [id number] 62 Unknown [id number] 62 Unknown [id number] 62 Unknown [id number] 62 Social History Date Type Detail Facility Start: 02-24-2022 End: 07-18-2023 Tobacco smoking status WYIS Unknown if ever smoked [facility] Start: 04-07-2020 Spouse/ Signif icant Other [facility] Start: 1985 Sex Assigned At Female [facility] Start: 03-04-2024 Tobacco smoking status WYIS Never smoked tobacco [facility] Start: 03-04-2024 Tobacco use and exposure Smokeless tobacco non-user [facility] Start: 03-04-2024 End: 03-26-2024 Alcoholic beverage intake Current drinker of alcohol (finding) [facility] Start: 04-16-2020 End: 03-04-2024 History of Social function [facility] Start: 04-16-2020 End: 03-04-2024 Tobacco use panel [facility] National Score (1-100), lower number is lower risk Not on file [facility] Start: 12-09-2014 Alcohol Comment rare [facility] Start: 12-11-2019 Gender identity Identifies as female gender (finding) [facility] Start: 07-18-2023 Tobacco smoking status NHIS Ex-smoker (finding) [facility] Start: 07-18-2024 End: 08-18-2024 Sex Female (finding) [facility] NEGATED: Highlighted row [facility] Work Phone: NEGATED: Highlighted row [facility] Goals Date Patient Goal Desired Activity /State Mental Status Date Assessment Result Facility 06-15-2023 Cognitive function Voice/Name [facility] Work Phone: 04-07-2023 Cognitive function Voice/Name [facility] Work Phone: 03-01-2022 Cognitive function Voice/Name [facility] Work Phone: Clinical Notes 10-11-2019 to 07-23-2024 Note Date & Type Note Facility 07-23-2024 Evaluation note Diagnosis Onset Date Resolution Anemia chronic July 23 1:11pm Anxiety and depression chronic Ma rc 2024 1:11pm Hypersomnolence chronic July 1:11pm Hypertension chronic July 23, 2024 1:11pm Tachycardia chronic July 23, 1:11pm Multiple thyroid nodules acute August 15, 2024 8:50am [facility] Work Phone: 1(684) 155-743902-27-2025 Radiology Diagnostic study note [facility] Imaging Services [address] [place], [place] [address] Thyroid MR#: [id number] Acct: [id number] Name: EDNA WAN Rep #: [id number] : 1985 F 39 From: Karmen Padilla MD PCP: Dr. René Zhao MD Status: R EG CLI Study:Thyroid Date of Exam: 07/05/24 Exam# [id number] Ordering Dr: Nga Briseno MD PROCEDURE: ULTRASOUND THYROID REASON FOR EXAM: Nodule TECHNIQUE: Thyroid ultrasound COMPARISON: No relevant prior. FINDINGS: Right thyroid lobe measures 6.6 x 3.8 x 2.6 cm. Left thyroid lobe measures 5.3 x 1.9 x 1.2 cm.. Isthmus thickness is 0.5 cm. Thyroid Size: Enlarged right lobe. Background Echotexture: Heterogeneous, bilateral lobes. Thyroid Nodules: Bilateral. RIGHT NODULE: Midpole, mixed cystic and solid, 5.0 x 3.6 x 2.5 cm, well- circumscribed,wider than tall, nocalcifications, isoechoic, TR 2. NODULE: Inferior pole, mixed cystic and solid, 1.3 x 1.1 x 0.9 cm, well- circumscribed, wider than tall, no calcifications, isoechoic, TR 2. LEFT NODULE: Midpole, mixed cystic and solid, 0.6 x 0.6 x 0.5 cm, well- circumscribed,rounded, no calcifications, isoechoic and anechoic, TR 2. NODULE: Inferior pole, cystic, 0.6 x 0.4 x 0.3 cm, wider than tall, well- circumscribed, no calcifications, anechoic, TR 1. NODULE: Midpole, mixed cystic and solid, 0.5 x 0.5 x 0.4 cm, well- circumscribed,no calcifications, hypoechoic, TR 3. US/Thyroid IMPRESSION: 1. TR 2 category nodules in the right and left thyroid lobes. No FNA warranted. 2. TR 3 category micronodule in the left midpole. No FNA warranted. 3. Benign cystic nodule in the left inferior pole. 4. Follow-up ultrasound recommended in 12 months. Reading Location: [place] [address] CC: Dr. René Zhao MD; Dr. 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 2024 1:11pm Hypersomnolence chronic July 1:11pm Hypertension chronic July 23, 2024 1:11pm Tachycardia chronic July 23, 2 025 1:11pm Multiple thyroid nodules acute August 15, 2024 8:50am [facility] Work Phone: 1(505) 709-700412-06-2024 Evaluation note* Diagnosis Onset Date Resolution Status Admit Date Flu vaccine need acute April 13, 2024 7:58am Anemia chronic April 13, 2024 7:58am Anxiety and depression chronic 2023 7:58am GERD (gastroesophageal reflu x disease) chronic April 13 7:58am Hypertension chronic April 7:58am Tachycardia chronic April 13, 2024 7:58am Glover's esophagus determin ed by biopsy acute May 14 2:05pm Constipation acute May 14, 2024 2:05pm GERD (gastroesophageal reflu x disease) chronic May 14 2:05pm [facility] Work Phone: 1(800) 758-128512-06-2024 Evaluation note* Diagnosis Onset Date Resolution Status Admit Date Flu vaccine need acute April 13, 2024 7:58am Anemia chronic April 13, 2024 7:58am Anxiety and depression chronic 2023 7:58am GERD (gastroesophageal reflu x disease) chronic April 13 7:58am Hypertension chronic April 7:58am Tachycardia chronic April 13, 2024 7:58am Glover's esophagus determin ed by biopsy acute May 14 2:05pm Constipation acute May 14, 2024 2:05pm GERD (gastroesophageal reflu x disease) chronic May 14 2:05pm Anemia chronic July 23 1:11pm Anxiety and depression chronic [facility] 2024 1:11pm Hypersomnolence chronic July 1:11pm Hypertension chronic July 23, 2024 1:11pm Tachycardia chronic July 23, 2 025 1:11pm [facility] Work Phone: 1(987) 515-330311-18-2024 History of Present illness Narrative* David Vargas, RT(R) - 03/26/2024 5:30 PM EST Radiology Service Progress Note PATIENT NAME: Edna Wan DATE OF SERVICE: March 26, 2024 TIME: 5:23 PM PATIENT IDENTITY VERIFICATION COMPLETED USING TWO (2) IDENTIFIERS: Name and Date of confirmedby patient verbally. FALL SCREENING: Has the patient had 2 falls in the last year or 1 fall with injury or currently using an Ambulatory Assistive Device (Walker, Cane, Wheelchair, Crutches, etc.)? No PATIENT GENDER DATA: Female. status: : No status: NO. PATIENT RELEVANT IMPLANT DATA REVIEWED: Not Applicable PATIENT PRESENTS WITH AN IMPLANTABLE OR ATTACHED TELEPHONE APPOINTMENT CLERK: No RADIOLOGY DEPARTMENT: General X-ray: Exam(s) Completed: Chest X-Ray PERIPHERAL IV DATA: Not applicable SIGNED BY: KACI Estevez) March 26, 2024 5:23 PM documented [facility]24 NoteHNO ID: [id number] Author: DAVID VARGAS RT (R) Service: Radiology Author Type: Technologist Type: Progress Notes Filed: 03/26/2024 17:28 Note Text: Radiology Service Progress Note PATIENT NAME: Edna Wan DATE OF SERVICE: March 26, 2024 TIME: 5:23 PM PATIENT IDENTITY VERIFICATION COMPLETED USING TWO (2) IDENTIFIERS: Name and Date of confirmed by patient verbally. FALL SCREENING: Has the patient had 2 falls in the last year or 1 fall with injury or currently using an Ambulatory Assistive Device (Walker, Cane, Wheelchair, Crutches, etc.)? No PATIENT GENDER DATA: Female. status: : No status: NO. PATIENT RELEVANT IMPLANT DATA REVIEWED: Not Applicable PATIENT PRESENTS WITH AN IMPLANTABLE OR ATTACHED TELEPHONE APPOINTMENT CLERK: No RADIOLOGY DEPARTMENT: General X-ray: Exam(s) Completed: Chest X-Ray PERIPHERAL IV DATA: Not applicable SIGNED BY: KACI Estevez) March 26, 2024 5:23 [facility]11-18-2024 NoteHNO ID: [id number] Author: GEO MURPHY MD Service: ? Author Type: Physician Type: Progress Notes Filed: 03/26/2024 17:59 Note Text: Patient presents with: Cough: wheeze x 1 month HPI: Coughing for 1 month. Treated here 03/04/24 for lower respiratory tract infection with doxycycline, prednisone, and albuterol. Positive symptoms: Cough, Shortness of breath, Wheezing, Diarrhea (since starting antibiotic), Negative symptoms: Chest pain, Sore throat, Nasal Congestion, Rhinorrhea, Fever, Vomiting, OTC: uses albuterol occasionally. No history of asthma or wheezing with colds. Home COVID tests at the beginning of illness were negative. PAST MEDICAL HISTORY Diagnosis Date Anxiety Glover esophagus Depression Diverticulitis HTN (hypertension) Multiple thyroid nodules MEDICATIONS: Current Outpatient Medications Medication Sig dilTIAZem CD (CARDIZEM CD, CARTIA XT) 180 mg 24 hr capsule Take 180 mg by mouth daily at bedtime. escitalopram oxalate (LEXAPRO) 10 mg tablet Take 1 tablet by mouth every afternoon. albuterol HFA (PROVENTIL HFA, VENTOLIN HFA) 90 mcg/actuation inhaler Inhale 2 Puffs as instructed every 4 hours as needed for wheezing/shortness of breath. sucralfate (CARAFATE) 1 gram tablet Take 1 g by mouth four times daily. pantoprazole DR (PROTONIX) 20 mg tablet Take 1 tablet by mouth once daily. famotidine (PEPCID) 40 mg tablet Take 40 mg by mouth twice daily. lisinopril (ZESTRIL, PRINIVIL) 40 mg tablet Take 40 mg by mouth once daily. No current facility-administered medications for this visit. ALLERGIES: ALLERGIES Allergen Reactions Hctz [Hydrochloroth* Intolerance Metoprolol Intolerance VITALS: BP 142/88 Pulse 114 Temp 36.9 ?C (98.4 ?F) Resp 18 Wt (!) 167.6 kg (369 lb 7.9 oz) LMP 02/24/2024 (Exact Date) SpO2 96% BMI 54.17 kg/m? Last 3 Encounter Wt Readings: Date: Wt: 03/26/2024 167.6 kg (369 lb 7.9 oz) 03/04/2024 164.1 kg (361 lb 12.4 oz) 03/03/2021 145.5 kg (320 lb 12.8 oz) PHYSICAL EXAM: GEN: mildly ill appearing HEENT: PERRL, EOMI, conjunctiva clear Ears: canals clear. TMs without erythema, bulge, or effusion Sinuses: non-tender frontal sinus, non-tender maxillary sinuses Throat: moist mucous membranes, no erythema, no exudate Neck: supple, no thyromegaly, no lymphadenopathy HEART: regular rate and rhythm during my exam, no murmurs LUNGS: bilateral coarse wheezes, no increased WOB ASSESSMENT/PLAN: 1. Subacute cough - ICD9: 786.2, ICD10: R05.2 (primary diagnosis) 2. Wheezing - ICD9: 786.07, ICD10: R06.2 - XR CHEST 2V FRONTAL/LAT Lungs and pleura: No consolidation. No lung mass. No pleural effusion. No pneumothorax. Cardiomediastinal silhouette: Normal cardiomediastinal silhouette. Repeat steroid - PREDNISONE 10 MG TABLET I recommended follow up with PCP for further evaluation of wheezing. She plans to keep her appointment as scheduled. Geo Murphy [facility]11-18-2024 History of Present illness Narrative* Geo Murphy MD - 03/26/2024 5:07 PM EST Patient presents with: Cough: wheeze x 1 month HPI: Coughing for 1 month. Treated here 03/04/24 for lower respiratory tract infection with doxycycline,prednisone, and albuterol. Positive symptoms: Cough, Shortness of breath, Wheezing, Diarrhea (since starting antibiotic), Negative symptoms: Chest pain, Sore throat, Nasal Congestion, Rhinorrhea, Fever, Vomiting, OTC: uses albuterol occasionally. No history of asthma or wheezing with colds. Home COVID tests at the beginning of illness were negative. PAST MEDICAL HISTORY Diagnosis Date Anxiety Glover esophagus Depression Diverticulitis HTN (hypertension) Multiple thyroid nodules MEDICATIONS: Current Outpatient Medications Medication Sig dilTIAZem CD (CARDIZEM CD, CARTIA XT) 180 mg 24 hr capsule Take 180 mg by mouth daily at bedtime. escitalopram oxalate (LEXAPRO) 10 mg tablet Take 1 tablet by mouth every afternoon. albuterol HFA (PROVENTIL HFA, VENTOLIN HFA) 90 mcg/actuation inhaler Inhale 2 Puffs as instructed every 4 hours as needed for wheezing/shortness of breath. sucralfate (CARAFATE) 1 gram tablet Take 1 g by mouth four times daily. pantoprazole DR (PROTONIX) 20 mg tablet Take 1 tablet by mouth once daily. famotidine (PEPCID) 40 mg tablet Take 40 mg by mouth twice daily. lisinopril (ZESTRIL, PRINIVIL) 40 mg tablet Take 40 mg by mouth once daily. No current facility-administered medications for this visit. ALLERGIES: ALLERGIES Allergen Reactions Hctz [Hydrochloroth* Intolerance Metoprolol Intolerance VITALS: BP 142/88 Pulse 114 Temp 36.9 C (98.4 F) Resp 18 Wt (!) 167.6 kg (369 lb 7.9 oz) LMP 02/24/2024 (Exact Date) SpO2 96% BMI 54.17 kg/m Last 3 Encounter Wt Readings: Date: Wt: 03/26/2024 167.6 kg (369 lb 7.9 oz) 03/04/2024 164.1 kg (361 lb 12.4 oz) 03/03/2021 145.5 kg (320 lb 12.8 oz) PHYSICAL EXAM: GEN: mildly ill appearing HEENT: PERRL, EOMI, conjunctiva clear Ears: canals clear. TMs without erythema, bulge, or effusion Sinuses: non-tender frontal sinus, non-tender maxillary sinuses Throat: moist mucous membranes, no erythema, no exudate Neck: supple, no thyromegaly, no lymphadenopathy HEART: regular rate and rhythm during my exam, no murmurs LUNGS: bilateral coarse wheezes, no increased WOB ASSESSMENT/PLAN: 1. Subacute cough - ICD9: 786.2, ICD10: R05.2 (primary diagnosis) 2. Wheezing - ICD9: 786.07, ICD10: R06.2 - XR CHEST 2V FRONTAL/LAT Lungs and pleura: No consolidation. No lung mass. No pleural effusion. No pneumothorax. Cardiomediastinal silhouette: Normal cardiomediastinal silhouette. Repeat steroid - PREDNISONE 10 MG TABLET I recommended follow up with PCP for further evaluation of wheezing. She plans to keep her appointment as scheduled. Geo Murphy MD documented [facility]24 NoteHNO ID: [id number] Author: YOSELIN PEOPLES PA Service: ? Author Type: Physician Fig Bar Machine Operator Type: Progress Notes Filed: 03/04/2024 14:41 Note Text: This note was created using NoteWriter. Subjective Edna Wan is a 38 year old female. HPI 38-year-old female presents for cough. Patient has had a cough, chest congestion x 10 days. She states that she has been coughing up phlegm. She has no history of asthma or COPD. She is not a smoker. She states she has had a little bit of nasal congestion. She has been using Mucinex, cough and cold medication with minimal improvement. Her right ear is also hurting and feels plugged. She was recently on vacation, so possible sick contacts. No other complaint. She has not had any fevers. PAST MEDICAL HISTORY Diagnosis Date Anxiety HTN (hypertension) PAST SURGICAL HISTORY Procedure Laterality Date ADENOIDECTOMY PRIMARY Adenoidectomy EGD 02/16/2021 LAPAROSCOPY SURG CHOLECYSTECTOMY Cholecystectomy, lap TONSILLECTOMY PRIMARY/SECONDARY Tonsillectomy ALLERGIES Hctz [Hydrochlorothiazide] and Metoprolol MEDICATIONS dilTIAZem CD (CARDIZEM CD, CARTIA XT) 180 mg 24 hr capsule Take 180 mg by mouth daily at bedtime. escitalopram oxalate (LEXAPRO) 10 mg tablet Take 1 tablet by mouth every afternoon. sucralfate (CARAFATE) 1 gram tablet Take 1 g by mouth four times daily. pantoprazole DR (PROTONIX) 20 mg tablet Take 1 tablet by mouth once daily. famotidine (PEPCID) 40 mg tablet Take 40 mg by mouth twice daily. lisinopril (ZESTRIL, PRINIVIL) 40 mg tablet Take 40 mg by mouth once daily. pantoprazole DR (PROTONIX) 40 mg tablet Take 1 tablet by mouth every afternoon. (Patient not taking: Reported on 03/04/2024) albuterol HFA (PROVENTIL HFA, VENTOLIN HFA) 90 mcg/actuation inhaler Inhale 2 Puffs as instructed every 4 hours as needed for wheezing/shortness of breath. predniSONE (DELTASONE) 20 mg tablet Take 2 tablets by mouth once daily for 4 days. Take daily with food. doxycycline (VIBRA-TABS) 100 mg tablet Take 1 tablet by mouth two times a day for 7 days. LORazepam (ATIVAN) 1 mg tablet Take 1 mg by mouth every 6 hours as needed. (Patient not taking: Reported on 03/04/2024) FAMILY HISTORY Problem Relation Age of Onset Cancer Mother pancreatic Social History Tobacco Use Smoking status: Never Smokeless tobacco: Never Vaping Use Vaping status: Never Used Substance Use Topics Alcohol use: Yes Comment: rare Drug use: No Review of Systems Constitutional: Negative for chills and fever. HENT: Positive for congestion and ear pain. Negative for sore throat. Respiratory: Positive for cough. Negative for shortness of breath. Cardiovascular: Negative for chest pain. Gastrointestinal: Negative for diarrhea and vomiting. Objective Pulse 103 Temp 36.8 ?C (98.3 ?F) (Left Tympanic) Resp 18 Wt (!) 164.1 kg (361 lb 12.4 oz) LMP 02/24/2024 (Exact Date) SpO2 95% BMI 53.04 kg/m? Physical Exam Vitals and nursing note reviewed. Constitutional: General: She is not in acute distress. Appearance: Normal appearance. She is not toxic-appearing. HENT: Right Ear: Ear canal normal. A middle ear effusion is present. Left Ear: Tympanic membrane and ear canal normal. Nose: Nose normal. Mouth/Throat: Mouth: Mucous membranes are moist. Eyes: Conjunctiva/sclera: Conjunctivae normal. Cardiovascular: Rate and Rhythm: Normal rate and regular rhythm. Pulmonary: Effort: Pulmonary effort is normal. Breath sounds: Wheezing and rhonchi present. Skin: General: Skin is warm and dry. Neurological: Mental Status: She is alert. Assessment and Plan ASSESSMENT/PLAN: 1. Lower resp. tract infection - ICD9: 519.8, ICD10: J22 (primary diagnosis) -No XR available at time of exam -Patient is wheezing and rhonchi on exam. -Rx for doxycycline, Rx for prednisone, Rx albuterol inhaler -Follow-up with PCP if no improvement in 4 to 5 days 2. Wheezing - ICD9: 786.07, ICD10: R06.2 -See above Diagnosis and treatment plan were discussed and questions were answered to the patient's satisfaction. Pt acknowledged understanding of concepts and follow up plan. Specific signs and symptoms that would indicate the need for higher level of care were discussed in detail warranting prompt ER evaluation. Yoselin Peoples [facility]10-27-2024 History of Present illness Narrative* Yoselin Peoples PA - 03/04/2024 2:38 PM EDT This note was created using NoteWriter. Subjective Edna Wan is a 38 year old female. HPI 38-year-old female presents for cough. Patient has had a cough, chest congestion x 10 days. Shestates that she has been coughing up phlegm. She has no history of asthma or COPD. She is not a smoker. She states she has had a little bit of nasal congestion. She has been using Mucinex, cough and cold medication with minimal improvement. Her right ear is also hurting and feels plugged. She was recently on vacation, so possible sick contacts. No other complaint. She has not had any fevers. PAST MEDICAL HISTORY Diagnosis Date Anxiety HTN (hypertension) PAST SURGICAL HISTORY Procedure Laterality Date ADENOIDECTOMY PRIMARY <AGE 11 Adenoidectomy EGD 02/16/2021 LAPAROSCOPY SURG CHOLECYSTECTOMY Cholecystectomy, lap TONSILLECTOMY PRIMARY/SECONDARY <AGE 11 Tonsillectomy ALLERGIES Hctz [Hydrochlorothiazide] and Metoprolol MEDICATIONS dilTIAZem CD (CARDIZEM CD, CARTIA XT) 180 mg 24 hr capsule Take 180 mg by mouth daily at bedtime. escitalopram oxalate (LEXAPRO) 10 mg tablet Take 1 tablet by mouth every afternoon. sucralfate (CARAFATE) 1 gram tablet Take 1 g by mouth four times daily. pantoprazole DR (PROTONIX) 20 mg tablet Take 1 tablet by mouth once daily. famotidine (PEPCID) 40 mg tablet Take 40 mg by mouth twice daily. lisinopril (ZESTRIL, PRINIVIL) 40 mg tablet Take 40 mg by mouth once daily. pantoprazole DR (PROTONIX) 40 mg tablet Take 1 tablet by mouth every afternoon. (Patient not taking: Reported on 03/04/2024) albuterol HFA (PROVENTIL HFA, VENTOLIN HFA) 90 mcg/actuation inhaler Inhale 2 Puffs as instructed every 4 hours as needed for wheezing/shortness of breath. predniSONE (DELTASONE) 20 mg tablet Take 2 tablets by mouth once daily for 4 days. Take daily with food. doxycycline (VIBRA-TABS) 100 mg tablet Take 1 tablet by mouth two times a day for 7 days. LORazepam (ATIVAN) 1 mg tablet Take 1 mg by mouth every 6 hours as needed. (Patient not taking: Reported on 03/04/2024) FAMILY HISTORY Problem Relation Age of Onset Cancer Mother pancreatic Social History Tobacco Use Smoking status: Never Smokeless tobacco: Never Vaping Use Vaping status: Never Used Substance Use Topics Alcohol use: Yes Comment: rare Drug use: No Review of Systems Constitutional: Negative for chills and fever. HENT: Positive for congestion and ear pain. Negative for sore throat. Respiratory: Positive for cough. Negative for shortness of breath. Cardiovascular: Negative for chest pain. Gastrointestinal: Negative for diarrhea and vomiting. Objective Pulse 103 Temp 36.8 C (98.3 F) (Left Tympanic) Resp 18 Wt (!) 164.1 kg (361 lb 12.4 oz) LMP1 (Exact Date) SpO2 95% BMI 53.04 kg/m Physical Exam Vitals and nursing note reviewed. Constitutional: General: She is not in acute distress. Appearance: Normal appearance. She is not toxic-appearing. HENT: Right Ear: Ear canal normal. A middle ear effusion is present. Left Ear: Tympanic membrane and ear canal normal. Nose: Nose normal. Mouth/Throat: Mouth: Mucous membranes are moist. Eyes: Conjunctiva/sclera: Conjunctivae normal. Cardiovascular: Rate and Rhythm: Normal rate and regular rhythm. Pulmonary: Effort: Pulmonary effort is normal. Breath sounds: Wheezing and rhonchi present. Skin: General: Skin is warm and dry. Neurological: Mental Status: She is alert. Assessment and Plan ASSESSMENT/PLAN: 1. Lower resp. tract infection - ICD9: 519.8, ICD10: J22 (primary diagnosis) -No XR available at time of exam -Patient is wheezing and rhonchi on exam. -Rx for doxycycline, Rx for prednisone, Rx albuterol inhaler -Follow-up with PCP if no improvement in 4 to 5 days 2. Wheezing - ICD9: 786.07, ICD10: R06.2 -See above Diagnosis and treatment plan were discussed and questions were answered to the patient's satisfaction. Pt acknowledged understanding of concepts and follow up plan. Specific signs and symptoms that would indicate the need for higher level of care were discussed in detail warranting prompt ER evaluation. KRYSTYNA Dumas documented in this [facility]11-30-2023 Procedure [facility]11-30-2023 Procedure [facility]06-04-2020 Note. MICRO - Microbiology PROCEDURE: Rapid Flu A+B [...] Locations *1: This test was performed at: [address], [address] [place] [address] ([place])Comment on above:Performed By: #### RFLU #### [facility] [address] [place], [place] [address]Discharge summary Author Jose Antonio Dawkins [facility] June 15, 2023 8:38am Note Date/Time June 15, 2023 8 :11am [facility] Medical Records Department [address] [place] [id number] Emergency Department Summary 06/15/23 MR#: [id number] Acct: [id number] Name: EDNA WAN Rep #:[id number] : 1985 38 From: Jose Antonio Dawkins DO PCP: Dr. René Zhao MD Status:R EG ER Location: ED HPI History of Present Illness Chief Complaint: Chest Pain Informant: patient Narrative Narrative: Patient is a 38-year-old female with past medical history of hypertension anxiety and depression as well as intermittent sinus tachycardia and Glover's esophagus. She states that last night around 9 PM she noticed some lower midsternal chest discomfort. She states that there is no associated nausea vomiting diaphoresis or shortness of breath associated with it. She denies any history of DVT/PE and states there is no pleuritic chest component. She states that she did feel her heart began to race at roughly the same time the pain began. She states however she was able to go to bed and sleep through the pain. But that it was still present this morning and secondary to that she comes in for evaluation. She denies any recent trauma or excessive activity and states that there is no history of illicit drug use or excessive stimulant use. [facility] Medical History Abdominal pain Anxiety Anxiety and depression Glover's esophagus determined by biopsy Depression Diverticulosis Family history of pancreatic cancer Former smoker Gastric reflux History of diverticulitis History of gallstones History of hiatal hernia Hypertension Migraine headache Morbid obesity with BMI of 45.0-49.9, adult Non-smoker Obesity Seasonal allergies Seborrheic keratosis Tachycardia Wears glasses Home Medications diltiazem HCl 120 mg capsule,extended release 24 hr 120 mg PO QHS #90 caps 05/13/22 [Rx Last Taken Unknown] inulin 2 gram chewable tablet (Fiber Gummies) 2 g PO BID 05/13/22 [History Last Taken Unknown] naproxen sodium 220 mg capsule (Aleve) 220 mg PO BID PRN pain 05/13/22 [History Last Taken Unknown] pantoprazole 40 mg tablet,delayed release (Protonix) 40 mg PO DAILY #90 tabs 10/05/22 [Rx Last Taken Unknown] lisinopril 40 mg tablet See Rx Instructions .Route .COMPLEX #90 tabs 05/04/23 [Rx Last Taken Unknown] escitalopram oxalate 10 mg tablet See Rx Instructions .Route .COMPLEX #90 tabs 06/03/23 [Rx Last Taken Unknown] Allergy/AdvReac Type Severity Reaction Status Date / Time hydrochlorothiazide Allergy INCREASED Verified 06/15/23 06:34 ANXIETY bupropion AdvReac Unknown Other Verified 06/15/23 06:34 metoprolol AdvReac RAPID Verified 06/15/23 06:34 HEART RATE, INCREASED ANXIETY Family History Grandfather Colon cancer Mother Cancer Pancreatic cancer Grandmother Cancer Hypertension Diverticulosis Surgical History History of colonoscopy History of esophagogastroduodenoscopy (EGD) History of tonsillectomy and adenoidectomy Hx laparoscopic cholecystectomy Social History Smoking Status: Former smoker alcohol intake: never substance use type: does not use caffeine: Yes what type of physical activity do you participate in: walking frequency: 3-4 times per week seatbelt use: always do you feel safe at home: Yes additional social history: - Mike ROS ROS ED Constitutional Constitutional ED: Denies chills or fever(s) ENT ENT ED: Denies sore throat Cardiovascular Cardiovascular: Reports chest pain and racing heartbeat Respiratory/Chest Respiratory/Chest: Denies cough or dyspnea Gastrointestinal Gastrointestinal: Denies abdominal pain, diarrhea, nausea or vomiting Genitourinary Genitourinary ED: Denies dysuria Musculoskeletal Musculoskeletal: Denies back pain or myalgias Integumentary Denies rash Neurologic Neurologic: Denies headache(s) Hematologic/Lymphatic Hematologic/Lymphatic: Denies easy bleeding or easy bruising EXAM Physical Exam Const Vital Signs: 06/15/23 06:32 06/15/23 06:34 Temperature 98.2 F Temperature Source Temporal Pulse Rate 123 H Respiratory Rate 18 Respiratory Effort Normal Non-Labored Pulse Ox 98 Oxygen Delivery Method Room Air Positive well nourished and well developed General Appearance ED: well developed; Negative for pallor HEENT Reports moist mucous membranes HEENT Narrative: No signs of infection noted in the posterior pharynx No airway edema or compromise Eyes PERRL and EOMs intact bilaterally General Eye ED: Negative for scleral icterus Neck supple and no JVD Neck Narrative: No nuchal rigidity or meningeal signs noted No obvious thyroid nodule or goiter Chest Wall palpation of chest normal Chest Narrative: No bony deformity or crepitance palpated Resp normal respiratory effort and clear to auscultation bilaterally Cardio regular rhythm Rate: tachycardic and other Other Details: Tachycardic rate with regular rhythm No murmurs rubs or gallops noted Radial and carotid pulses are equal and symmetric GI normal to inspection, nondistended, normoactive bowel sounds, non-tender, non-distended and no masses GI Narrative: No voluntary guarding or rigidity or pulsatile mass Auscultation: normoactive bowel sounds Palpation: soft Extremity normal to inspection Extremity Narrative: No asymmetric edema no pitting edema negative Homans' sign bilaterally Neuro oriented x3, CN's II-XII intact bilaterally and no sensory deficits noted Sensorium / Orientation: alert Motor Exam: strength 5/5 throughout Psych mental status grossly normal Skin no rashes or lesions noted General Skin Exam: Negative for jaundice or pallor MDM MDM MDM Narrative Medical decision making narrative: Patient arrived to the ER tachycardic but otherwise with stable vitals. She reported a lower midsternal chest discomfort that been constant for approximately 10 hours. Differential diagnosis is for acute coronary syndrome versus Glover's esophagus versus esophageal spasm versus pneumonia versus pneumothorax versus pulmonary embolus versus pancreatitis versus gastritis. Secondary to her tachycardia D-dimer was obtained as well as troponin and EKG. EKG shows sinus tachycardia but otherwise was normal. Blood work revealed no clinically significant findings and chest x-ray revealed no acute lung pathology. With IV hydration the patient's heart rate reduced. Therefore at this time she is low risk for cardiovascular disease and as she has a normal troponin and chest x-ray reveals no acute lung pathology. The patient's D-dimerwas slightly elevated at 0.82 and with her tachycardia and elevated D- dimer I cannot rule out pulmonary embolus so a CTA will be obtained. As a CTA still pending the patient be signed out to the day physician Dr. Bishop. I feel that if her CTA is normal with improvement of her heart rate with IV fluids as well as overall negative workup there is no need for further evaluation in ER and she will be safe for discharge History & Record Review Discussion w/independent historian: Patient Lab Data Attestation: I reviewed the patient's lab results. Labs: Laboratory Results - last 24 hr 06/15/23 07:00 WBC 10.0 RBC 4.41 Hgb 11.0 L Hct 35.7 L MCV 81.0 MCH 24.9 L MCHC 30.8 L RDW Std Deviation 46.7 H RDW Coeff of Jj 16.0 H Plt Count 342 MPV 10.6 Immature Gran % (Auto) 1.100 H Neut % (Auto) 73.6 H Lymph % (Auto) 15.0 L [place] % (Auto) 8.1 Eos % (Auto) 1.5 Baso % (Auto) 0.7 Absolute Neuts (auto) 7.4 Absolute Lymphs (auto) 1.50 Nucleated RBC % 0 D-Dimer Quant (PE/DVT) 0.82 H* Sodium 135 L Potassium 4.0 Chloride 107 Carbon Dioxide 24.0 Anion Gap 4 L BUN 12 Creatinine 0.64 Estim Creat Clear Calc 190.22 Est GFR (MDRD) Af Amer 132 Est GFR (MDRD) Non-Af 109 BUN/Creatinine Ratio 18.7 Glucose 104 Calcium 9.7 Magnesium 1.9 Total Bilirubin 0.30 Direct Bilirubin 0.11 AST 13 L ALT 23 Alkaline Phosphatase 119 H Troponin I High Sens 5 Total Protein 8.0 Albumin 3.7 Globulin 4.3 H Lipase 39 TSH 2.08 Radiography Diagnostic Testing: Clinical Impression(s) from Imaging Studies Chest X-Ray 06/15/23 07:08 IMPRESSION: No radiographic evidence of acute cardiopulmonary disease. Electronically Signed: Mendoza Calloway MD at 7:34 EST , Chest x-ray as interpreted by the emergency medicine physician reveals no acute infiltrate pneumothorax pleural effusion or widening of the mediastinum Discharge Plan Triage Chief Complaint: Chest Pain ED Provider: Jose Antonio Dawkins Dx/Rx/DC Orders Clinical Impression: Nonspecific chest pain, Sinus tachycardia, Glover's esophagus determined by biopsy, Hypertension Instructions: Understanding Tachycardia, ED Chest Pain, Uncertain Cause Prescriptions: No Action naproxen sodium [Aleve] 220 mg capsule 220 mg PO BID PRN (Reason: pain) Fiber Gummies 2 gram tablet,chewable 2 g PO BID diltiazem HCl 120 mg capsule,extended release 24hr 120 mg PO QHS Qty: 90 3RF pantoprazole [Protonix] 40 mg tablet,delayed release (DR/EC) 40 mg PO DAILY Qty: 90 3RF lisinopril 40 mg tablet See Rx Instructions .ROUTE .COMPLEX Qty: 90 1RF Dose Instruction: TAKE 1 TABLET BY MOUTH EVERY DAY Rx Instructions: TAKE 1 TABLET BY MOUTH EVERY DAY escitalopram oxalate 10 mg tablet See Rx Instructions .ROUTE .COMPLEX Qty: 90 0RF Dose Instruction: TAKE 1 TABLET BY MOUTH EVERY DAY Rx Instructions: TAKE 1 TABLET BY MOUTH EVERY DAY Primary Care Provider: René Zhao Referrals: René Zhao MD [Primary Care Provider] - What to do if you have Problems For any increased pain, shortness of breath, bleeding, nausea or vomiting, chestpain, or any unexpected problems, contact your Primary Care Provider. Call [facility] ([phone]) or report to the closest Emergency Room. Call 911 if necessary. 06/15/23 0838 <Electronically signed by Jose Antonio Dawkins DO> Cosigner Signature (if applicable): CC: Dr. René Zhao MD ~ Signed [facility] Work Phone: Evaluation note* Diagnosis Onset Date Resolution Status Glover's esophagus determined by biopsy acute Constipation acute GERD (gastroesophageal reflux disease) [facility] Work Phone: Evaluation note* Diagnosis Onset Date Resolution Status GERD (gastroesophageal reflux disease) chronic Anxiety and depression chron ic GERD (gastroesophageal reflux disease) chronic Hypertension chronic Morbid obesity with BMI of 45.0-49.9, adult [facility] Work Phone: Evaluation note* Diagnosis Onset Date Resolution Status Glover's esophagus determined by biopsy acute Constipation acute GERD (gastroesophageal reflux disease) chronic Family history of pancreatic cancer acute Anxiety and depression chron ic GERD (gastroesophageal reflux disease) chronic Hypertension chronic Obesity [facility] Work Phone: Evaluation note* Diagnosis Onset Date Resolution Status Glover's esophagus determined by biopsy acute Constipation acute GERD (gastroesophageal reflux disease) chronic Family history of pancreatic cancer acute Anxiety and depression chron ic GERD (gastroesophageal reflux disease) chronic Hypertension chronic Obesity chronic Glover's esophagus determined by biopsy acute Constipation acute GERD (gastroesophageal reflux disease) [facility] Work Phone: Evaluation note* Diagnosis Onset Date Resolution Status Glover's esophagus determined by biopsy acute Constipation acute GERD (gastroesophageal reflux disease) chronic Family history of pancreatic cancer acute Anxiety and depression chron ic GERD (gastroesophageal reflux disease) chronic Hypertension chronic Obesity chronic Glover's esophagus determined by biopsy acute Constipation acute GERD (gastroesophageal reflux disease) chronic Thyroid enlargement acute Anxiety and depression chron ic Hypertension chronic Morbid obesity chronic Tachycardia [facility] Work Phone: Evaluation note* Diagnosis Onset Date Resolution Status Family history of pancreatic cancer acute Anxiety and depression chron ic GERD (gastroesophageal reflux disease) chronic Hypertension chronic Obesity chronic Glover's esophagus determined by biopsy acute Constipation acute GERD (gastroesophageal reflux disease) chronic Thyroid enlargement acute Anxiety and depression chron ic Hypertension chronic Morbid obesity chronic Tachycardia chronic Multiple thyroid nodules acu [facility] Work Phone: Evaluation note* Diagnosis Onset Date Resolution Status Glover's esophagus determined by biopsy acute Constipation acute GERD (gastroesophageal reflux disease) chronic Thyroid enlargement acute Anxiety and depression chron ic Hypertension chronic Morbid obesity chronic Tachycardia chronic Multiple thyroid nodules acu [facility] Work Phone: Evaluation note* Diagnosis Lower resp. tract infection- Primary Other diseases of respiratory system, not elsewhere classified [facility] Subacute cough- Primary Cough Wheezing Subacute cough Cough [facility] Subacute cough Cough Wheezing [facility] Author Fortunato Foster [facility] April 07, 2023 7:03am Note Date/Time April 07, 2023 7:03am [facility] Medical Records Department [address] [place] [address] History & Physical Exam 04/07/23 0702 MR#: [id number] Acct: [id number] Name: EDNA WAN Rep #:[id number] : 1985 37 From: Fortunato Foster DO PCP: Dr. René Zhao MD Status:R [facility] Location: [place] [address] History and Physical Date of Admission: 04/07/23 EDNA WAN, is a 37 F who presents to the office today for a follow up. She had an EGD for GERD. It was indicated for h/o Glover's esophagus. EGD revealedZ-line irregular, small hiatal hernia, otherwise normal. Biopsy was negative for Glover's esophagus. She remains on pantoprazole 40 mg daily. She has no GI complaints at this time. No heartburn or acid reflux. Denies nausea, vomiting, early satiety, dysphagia, abdominal pain, constipation, diarrhea, melena, hematochezia. 03/01/2022 EGD Impression: ? - Z-line irregular, 39 cm from the incisors. ? Biopsied. ? - Small hiatal hernia. ? - The examination was otherwise normal. ? - Normal first portion of the duodenum. MICROSCOPIC DIAGNOSIS Distal esophagus, biopsy: Gastroesophageal junctional mucosa with chronic inflammation. No evidence of goblet cell metaplasia ROS Const Constitutional: No body ache, chills, excessive sweating, fatigue, fever(s), frequent falls, headache(s), snoring, weakness, sleep problems or change in appetite Eyes Eyes: No blurry vision, change in vision, discharge, vision loss, floaters or Light sensitivity ENT ENT: No abnormal hearing, ear or mastoid pain, tinnitus, nosebleed/epistaxis, nasal congestion, nasal discharge, headache(s), neck pain or sore throat Resp Respiratory: No cough, excessive phlegm production, shortness of breath, snoringor wheezing Cardio Cardiology: No chest pain at rest, chest pain with exertion, excessive sweating,shortness of breath, dyspnea on exertion, lightheadedness, orthopnea or palpitations Gastro GI: No abdominal pain, change in bowel habits, constipation, cramping, diarrhea or nausea/dyspepsia Genitourinary-Female: No burning urination, painful urination, urinary incontinence, urinary frequency, suprapubic fullness or side pain Musc Musculoskeletal: No abnormal gait, joint pain, back pain, limited range of motion, muscle weakness, neck pain or numbness Skin Skin: No dry skin, redness, excessive hair growth, yellowing of the eye, lesions, itchy eyes, rash or wounds Neuro Neurology: No abnormal gait, abnormal hearing, weakness, frequent falls, headache(s), memory loss or numbness Psych Psychiatric: No anxiety, No change in appetite, No depression, No memory loss, No panic attacks and No Thoughts of harming yourself/Others Endo Endocrine: No cold intolerance, excessive sweating, fatigue, flushing, heat intolerance, increased thirst/drinking or increased hunger Aller/Imm Allergy/Immunologic: No itchy eyes, seasonal allergy symptoms, hives or wheezing Jimbo/Lymp Hematologic/Lymphatic: No easy bleeding or enlarged lymph nodes Exam Const General: cooperative, comfortable and no acute distress Orientation: alert, awake and oriented x3 HENMT Head: normal to inspection, normocephalic and atraumatic Ears: hearing grossly normal bilaterally Eyes General: appearance normal, both eyes and all related structures Neck Neck: normal visual inspection, full ROM and supple Neck mass: No Resp Effort & Inspection: normal respiratory effort and able to speak in complete sentences Auscultation: Bilateral: Clear to Auscultation Cardio Rhythm: regular rhythm Heart Sounds: S1 normal and S2 normal GI Palpation: soft (Nontender, no palpable organomegaly.) Neuro General: patient alert, patient awake, patient oriented x3, moves all extremities and CN's II-XI intact bilaterally Extrem General: no clubbing, cyanosis or edema Psych Appearance: grossly normal Mental Status: mental status grossly normal Mood: congruent mood Affect: normal affect Quality Reporting Tobacco Screening ([facility] 138) Smoking Status: Never smoker Assessment and Plan Assessment and Plan (1) GERD (gastroesophageal reflux disease): Status: Chronic Qualifiers: Esophagitis presence: with esophagitis Esophagitis bleeding: without hemorrhage Qualified Code(s): K21.00 - Gastro-esophageal reflux disease with esophagitis, without bleeding Plan: Controlled with pantoprazole 40 mg daily (2) Glover's esophagus determined by biopsy: Status: Acute Plan: One yr f/u EGD is scheduled for 03/2023, continue PPI (3) Constipation: Status: Acute Qualifiers: Constipation type: slow transit constipation Qualified Code(s): K59.01 - Slow transit constipation Plan: Well managed with [employer] I have examined the patient and the H&P has been reviewed. There are no clinical changes since date of exam. 04/07/23 0703 <Electronically signed by Fortunato Foster DO> Cosigner Signature (if applicable): CC: Dr. René Zhao MD; Fortunato Foster DO~ Signed [facility] Work Phone: Reason for referral (narrative)No reason for referral information [facility] Work Phone: Summary Purpose Family History Relationship Condition Age at Onset Recorded Date/T cory grandfather Malignant neoplasm of colon Unknown mother Malignant neoplasm Unknown Malignant neoplasm of pancreas Unknown grandmother Malignant neoplasm Unknown Hypertension Unknown Diverticular disease Unknown Advance Directives Advance Directive Response Recorded Date/ Time Living Will No February 24 4:05pm Power of Special Events Manager No February 24, 2022 4:05pm Advance Directive Response Recorded Date/ Time Living Will No February 24 3:05pm Power of Special Events Manager No February 24, 2022 3:05pm Advance Directive Response Recorded Date/ Time Living Will No April 04, 2 023 3:25pm Power of Special Events Manager No April 04, 2023 3:25pm Advance Directive Response Recorded Date/ Time Living Will No June 15 6:34am Power of Special Events Manager No June 15, 2023 6:34am Advance Directive Response Recorded Date/ Time Living Will No June 15 7:34am Power of Special Events Manager No June 15, 2023 7:34am Advance Directive Response Recorded Date/ Time Living Will No April 04, 2 023 4:25pm Power of Special Events Manager No April 04, 2023 4:25pm Living Will No June 15 7:34am Power of Special Events Manager No June 15, 2023 7:34am Advance Directive Response Recorded Date/ Time Living Will No April 04, 2 023 4:25pm Do you have a Healthcare Power of Special Events Manager? No April 04, 2023 4:25pm Living Will No June 15 7:34am Do you have a Healthcare Power of Special Events Manager? No June 15, 2023 7:34am Advance Directive Response Recorded Date/ Time Living Will No June 15 7:34am Do you have a Healthcare Power of Special Events Manager? 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 Reason for Visit GERD (gastroesophage al reflux disease) Anxiety and depression GERD (gastroesophageal reflux disease) Hypertension Morbid obesity with BMI of 45.0-49.9, adult Chief Complaint 1 YR FU 3 m fu Reason for Visit Glover's esophagus determined by biopsy Constipation GERD (gastroesophageal reflux disease) Family history of pancreatic cancer Anxiety and depression GERD (gastroesophageal reflux disease) Hypertension Obesity Chief Complaint 1 YR FU 3 m fu 2 WK FU CHEST PAIN Reason for Visit Glover's esophagus determined by biopsy Constipation GERD (gastroesophageal reflux disease) Family history of pancreatic cancer Anxiety and depression GERD (gastroesophageal reflux disease) Hypertension Obesity Glover's esophagus determined by biopsy Constipation GERD (gastroesophageal reflux disease) Chief Complaint 1 YR FU 3 m fu 2 WK FU CHEST PAIN 3 M FU GOITER Reason for Visit Glover's esophagus determined by biopsy Constipation GERD (gastroesophageal reflux disease) Family history of pancreatic cancer Anxiety and depression GERD (gastroesophageal reflux disease) Hypertension Obesity Glover's esophagus determined by biopsy Constipation GERD (gastroesophageal reflux disease) Thyroid enlargement Anxiety and depression Hypertension Morbid obesity Tachycardia Chief Complaint 3 m fu 2 WK FU CHEST PAIN 3 M FU GOITER Thyroid Nodules fine needle aspiration- thyroid nodule Reason for Visit Family history of pa ncreatic cancer Anxiety and depression GERD (gastroesophageal reflux disease) Hypertension Obesity Glover's esophagus determined by biopsy Constipation GERD (gastroesophageal reflux disease) Thyroid enlargement Anxiety and depression Hypertension Morbid obesity Tachycardia Multiple thyroid nodules Chief Complaint 2 WK FU CHEST PAIN 3 M FU GOITER Thyroid Nodules fine needle aspiration- thyroid nodule SCREENING ABNORMAL MAMMOGRAM Reason for Visit Glover's esophagus determined by biopsy Constipation GERD (gastroesophageal reflux disease) Thyroid enlargement Anxiety and depression Hypertension Morbid obesity Tachycardia Multiple thyroid nodules Chief Complaint Admit Date 6 M FU April 13, 2024 7 :58am 1 YR FU May 14, 2024 2: 05pm GOITER July 05, 2024 1:44pm Reason for Visit Admit Date Flu vaccine need April 13, 2024 7 :58am Anemia April 13, 2024 7 :58am Anxiety and depression April 13 7:58am GERD (gastroesophageal reflux disease) D ecember 2023 7:58am Hypertension April 13, 2024 7 :58am Tachycardia April 13, 2024 7 :58am Glover's esophagus determined by biopsy May 14, 2024 2:05pm Constipation May 14, 2024 2: 05pm GERD (gastroesophageal reflux disease) J anuary 2024 2:05pm Chief Complaint Admit Date 6 M FU April 13, 2024 7 :58am 1 YR FU May 14, 2024 2: 05pm GOITER July 05, 2024 1:44pm 3 M FU July 23, 2024 1:1 1pm Reason for Visit Admit Date Flu vaccine need April 13, 2024 7 :58am Anemia April 13, 2024 7 :58am Anxiety and depression April 13 7:58am GERD (gastroesophageal reflux disease) D ecember 2023 7:58am Hypertension April 13, 2024 7 :58am Tachycardia April 13, 2024 7 :58am Glover's esophagus determined by biopsy May 14, 2024 2:05pm Constipation May 14, 2024 2: 05pm GERD (gastroesophageal reflux disease) J anuary 2024 2:05pm Anemia July 23, 2024 1:1 1pm Anxiety and depression July 23, 2024 1:11pm Hypersomnolence July 23, 2024 1:1 1pm Hypertension July 23, 2024 1:1 1pm Tachycardia July 23, 2024 1:1 1pm Chief Complaint Admit Date 1 YR FU May 14, 2024 2: 05pm GOITER July 05, 2024 1:44pm 3 M FU July 23, 2024 1:1 1pm 1 yr thyroid recall August 15, 2024 8:50 am Hypersomnolence August 16, 2024 7:5 2pm Reason for Visit Admit Date Glover's esophagus determined by biopsy May 14, 2024 2:05pm Constipation May 14, 2024 2: 05pm GERD (gastroesophageal reflux disease) J anuary 2024 2:05pm Anemia July 23, 2024 1:1 1pm Anxiety and depression July 23, 2024 1:11pm Hypersomnolence July 23, 2024 1:1 1pm Hypertension July 23, 2024 1:1 1pm Tachycardia July 23, 2024 1:1 1pm Multiple thyroid nodules August 15, 2024 8:50am Chief Complaint Admit Date GOITER July 05, 2024 1:44pm 3 M FU July 23, 2024 1:1 1pm 1 yr thyroid recall August 15, 2024 8:50 am Hypersomnolence August 16, 2024 7:5 2pm R09.02 - Hypoxemia September 12, 2024 8:06am TARIQ September 13, 2024 12:52p m Reason for Visit Admit Date Anemia July 23, 2024 1:1 1pm Anxiety and depression July 23, 2024 1:11pm Hypersomnolence July 23, 2024 1:1 1pm Hypertension July 23, 2024 1:1 1pm Tachycardia July 23, 2024 1:1 1pm Multiple thyroid nodules August 15, 2024 8:50am Chief Complaint Admit Date GOITER July 05, 2024 1:44pm 3 M FU July 23, 2024 1:1 1pm 1 yr thyroid recall August 15, 2024 8:50 am Hypersomnolence August 16, 2024 7:5 2pm R09.02 - Hypoxemia September 12, 2024 8:06am R09.02 - Hypoxemia September 12, 2024 8:17am TARIQ September 13, 2024 12:52p m 3 m fu October 26, 2024 9:09 am Additional Source Comments INFORMATION SOURCE (unrecogn ized section and content) DATE CREATED AUTHOR 08/30/2020 [facility] ([place]) DATE CREATED AUTHOR AUTHOR'S ORGANIZ ATION 03/28/2024 [facility] DATE CREATED AUTHOR AUTHOR'S ORGANIZ ATION 09/19/2024 [facility] Care Teams (unrecognized sec tion and content) Team Status: Active Member Role Status Dates Dr. Bijan Chapin DO Family Provider Active Dr. René Zhao MD Primary Care Provider Active Team Status: Inactive Member Role Status Dates Dr. Bijan Chapin DO Primary Care Provider, Referri ng Provider Active Dr. Fortunato Foster DO Attending Provider Active Team Status: Inactive Member Role Status Dates Dr. René Zhao MD Primary Care P rovider, Attending Provider, Referring Provider Active Team Status: Active Member Role Status Dates Dr. René Zhao MD Primary Care Provider, Refer ring Provider Active Dr. Fortunato Foster DO Attending Provider, Other Prov ider Active Team Status: Inactive Member Role Status Dates Dr. René Zhao MD Primary Care Provider, Refer ring Provider Active Dr. Fortunato Foster DO Attending Provider Active Team Status: Inactive Member Role Status Dates Dr. René Zhao MD Primary Care Provider Active Dr. Alon Bishop MD Emergency Provider Active Team Status: Inactive Member Role Status Dates Dr. René Zhao MD Primary Care Provider Active Dr. Alon Bishop MD Attending Provider, Emergency Provider Active Team Status: Inactive Member Role Status Dates Dr. René Zhao MD Primary Care Provider, Refer ring Provider Active Dr. Alexx Briseno MD Attending Provider Active Team Status: Inactive Member Role Status Dates Dr. René Zhao MD Primary Care Provider Active Dr. Alexx Briseno MD Attending Provider, Referring P rovider Active Team Status: Inactive Member Role Status Dates Dr. René Zhao MD Primary Care Provider Active Dr. Symone Brown DO Attending Provider, Refe rring Provider Active Team Status: Active Member Role Status Dates Dr. René Zhao MD Primary Care Provider Active Dr. 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 René Zhao MD Primary Care Provider Active Team Status: Inactive Member Role Status Dates Dr. René Zhao MD Primary Care Provider Active Start: April 13, 2024 End: April 13, 2024 Dr. René Zhao MD Attending Provider Active Start: April 13, 2024 End: April 13, 2024 Dr. René Zhao MD Referring Provider Active Start: April 13, 2024 End: April 13, 2024 Team Status: Inactive Member Role Status Dates Dr. René Zhao MD Primary Care Provider Active Start: May 14, 2024 End: May 14, 2024 Dr. René Zhao MD Referring Provider Active Start: May 14, 2024 End: May 14, 2024 Dr. Fortunato Foster DO Attending Provider Active Start: May 14, 2024 End: May 14, 2024 Team Status: Inactive Member Role Status Dates Dr. Alexx Briseno MD Attending Provider Active Start: July 05, 2024 End: July 05, 2024 Dr. Alexx Briseno MD Referring Provider Active Start: July 05, 2024 End: July 05, 2024 Dr. René Zhao MD Primary Care Provider Active Start: July 05, 2024 End: July 05, 2024 Team Status: Inactive Member Role Status Dates Dr. René Zhao MD Primary Care Provider Active Start: July 23, 2024 End: July 23, 2024 Dr. René Zhao MD Attending Provider Active Start: July 23, 2024 End: July 23, 2024 Dr. René Zhao MD Referring Provider Active Start: July 23, 2024 End: July 23, 2024 Team Status: Inactive Member Role Status Dates Dr. René Zhao MD Primary Care Provider Active Start: August 15, 2024 End: August 15, 2024 Dr. René Zhao MD Referring Provider Active Start: August 15, 2024 End: August 15, 2024 Dr. Alexx Briseno MD Attending Provider Active Start: August 15, 2024 End: August 15, 2024 Team Status: Inactive Member Role Status Dates Dr. René Zhao MD Primary Care Provider Active Start: August 16, 2024 End: August 16, 2024 Dr. René Zhao MD Attending Provider Active Start: August 16, 2024 End: August 16, 2024 Dr. René Zhao MD Referring Provider Active Start: August 16, 2024 End: August 16, 2024 Team Status: Inactive Member Role Status Dates Dr. René Zhao MD Primary Care Provider Active Start: September 12, 2024 End: September 12, 2024 Dr. René Zhao MD Attending Provider Active Start: September 12, 2024 End: September 12, 2024 Dr. René Zhao MD Referring Provider Active Start: September 12, 2024 End: September 12, 2024 Team Status: Active Member Role Status Dates Dr. René Zhao MD Primary Care Provider Active Start: September 13, 2024 Dr. René Zhao MD Attending Provider Active Start: September 13, 2024 Team Status: Inactive Member Role Status Dates Dr. René Zhao MD Primary Care Provider Active Start: September 13, 2024 End: September 13, 2024 Dr. René Zhao MD Attending Provider Active Start: September 13, 2024 End: September 13, 2024 Team Status: Active Member Role Status Dates Dr. René Zhao MD Primary Care Provider Active Start: September 12, 2024 Dr. René Zhao MD Referring Provider Active Start: September 12, 2024 Dr. Ba Shelton DO Attending Provider Active S tart: September 12, 2024 Team Status: Inactive Member Role Status Dates Dr. René Zhao MD Primary Care Provider Active Start: October 26, 2024 End: October 26, 2024 Dr. René Zhao MD Attending Provider Active Start: October 26, 2024 End: October 26, 2024 Dr. René Zhao MD Referring Provider Active Start: October 26, 2024 End: October 26, 2024 Team Status: Active Member Role Status Dates Dr. René Zhao MD Primary Care Provider Active Start: October 26, 2024 Dr. René Zhao MD Attending Provider Active Start: October 26, 2024 Dr. René Zhao MD Referring Provider Active Start: October 26, 2024 Goals (unrecognized section and content) Goals may be documented in a n alternate sectionGoals may be documented in an alternate sectionGoals may be documented in an alternate sectionGoals may be documented in an alternate sectionGoals may be documented in an alternate sectionGoals may be documented in an alternate sectionGoals may be documented in an alternate sectionGoals may be documented in an alternate section Source Comments (unrecognize d section and content) In the event this informatio n is protected by the Federal Confidentiality of Alcohol and Drug Abuse Patient Records regulations: The Federal rules restrict any use of the information to criminally investigate or prosecute any alcohol or drug abuse patient.[facility] the event this information is protected by the Federal Confidentiality of Alcohol and Drug Abuse Patient Records regulations: The Federal rules restrict any use of the information to criminally investigate or prosecute any alcohol or drug abuse patient.[facility] the event this information is protected by the Federal Confidentiality of Alcohol and Drug Abuse Patient Records regulations: The Federal rules restrict any use of the information to criminally investigate or prosecute any alcohol or drug abuse patient.[facility] Reason for Visit (unrecogniz ed section and content) Reason Comments Cough X 1 week Reason Comments Cough wheeze x 1 month FOR RECORDS PERTAINING TO PATIENTS WHO ARE [...] BE BASED ON THE PRIMARY CLINICAL RECORDS. [facility]. provides no warranty or guarantee of the accuracy or completeness of information in this document.
[2024-10-26 12:39] LABS: Absolute Lymphocyte Count 1.58 X10^3/uL (0.83-4.51); Absolute Neutrophil Count 6.2 X10^3/uL (2.0-7.7); Basophil# 0.06 X10^3/uL; Basophil% 0.7 % (0-1); Eosinophil# 0.22 X10^3/uL; Eosinophils% 2.5 % (0-5); Hematocrit 34.7 % (37-47); Hemoglobin 10.8 g/dL (12.0-15.0); Lymphocyte # 1.58 X10^3/ul (0.83-4.51); Lymphocyte % 17.9 % (19-41); Mean Corp Hgb Conc 31.1 g/dL (32-36); Mean Corpuscular Hgb 26.5 pg (27.0-32.0); Mean Corpuscular Volume 85.3 fL (81-99); Mean Platelet Vol. 11.4 fl (6.2-12.0); Monocyte# 0.73 X10^3/uL; Monocyte% 8.3 % (0-10); NRBC Flagged by Analyzer 0 % (0-5); Neutrophil # 6.15 X10^3/uL (2.7-7.7); Neutrophil % 69.7 % (47-70); Platelet Count 320 K/mm3 (150-450); RBC Distribution Width CV 14.6 % (11.6-14.6); RBC Distribution Width SD 45.5 fl (35.1-43.9); Red Blood Count 4.07 M/mm3 (4.2-5.4); White Blood Count 8.8 K/mm3 (4.4-11.0)
[2024-10-26 15:30] LABS: ALB/GLOB Ratio 1.2 RATIO (0.9-2.4); AST(SGOT) 21 U/L (<=31); Alanine Aminotransfer ALT/SGPT 21 U/L (<=34); Alkaline Phosphatase 123 U/L (35-104); Anion Gap 13 (5-15); BUN 12 mg/dL (4-19); BUN/Creat Ratio 22.6 RATIO (10-20); Calcium,Total 9.6 mg/dL (7.6-11.0); Carbon Dioxide 24.2 mmol/L (21.0-32.0); Chloride 106 mmol/L (98-108); Cholesterol 169 mg/dL (<=200); Creatinine, Serum 0.54 mg/dL (0.70-1.20); EST Glomerular Filtration Rate 119 (>60); Globulin 3.4 g/dL (2.2-4.2); Glucose 84 mg/dL (70-99); High Density Lipoprotein 48 mg/dL; Low Density Lipoprotein Calc. 104 mg/dL; Potassium 4.3 mmol/L (3.3-5.1); Protein, Total 7.4 g/dL (5.9-8.4); Sodium Level 143 mmol/L (133-145); Total Bilirubin 0.22 mg/dL (0.00-1.30); Triglycerides 88 mg/dL; Very Low Density Lipoprotein 18 mg/dL (5-40); cholesterol:hdl ratio screen 3.56
== END | disposition home or self-care (01) ==
LOC: BIMLAB 10:04
PROVIDERS: PCP Internal Medicine; Referring Provider Internal Medicine; Visit Provider Internal Medicine
DX: I10 Essential (primary) hypertension (principal)
CPT/HCPCS: 36415; 80053; 80061; 85025

== ENCOUNTER → 2024-11-02 | Outpatient (CLI) | payer OTHER, SELFPAY ==
--- NOTE | 2024-11-02 14:45 | BI_ITS ---
EXAM: SCRN MAMM (CAD)W/ABHISHEK BILAT DATE: 11/02/2024 CLINICAL HISTORY: F, Age 39 y/o , BREAST CANCER SCREENING TECHNIQUE: SCRN MAMM (CAD)W/ABHISHEK BILAT COMPARISON: Prior exam(s) dated 08/22/2023, 08/18/2023. FINDINGS: TISSUE DENSITY: There are scattered areas of fibroglandular density. Bilateral Breast Mammographic Findings: No significant masses, calcifications or other abnormalities are identified. BI/SCRN MAMM (CAD)W/ABHISHEK BILAT IMPRESSION: The mammogram demonstrates that the patient has dense breasts. Supplemental scr eening with whole breast ultrasound or MRI may be considered for further evaluation. OVERALL FINAL ASSESSMENT BI-RADS 1: NEGATIVE. RECOMMEND ANNUAL MAMMOGRAPHIC SCREENING. RECOMMENDATION: Routine annual follow-up in 1 Year A letter with findings and recommendations will be mailed to the patient. Reading Location: [id number]
== END | disposition home or self-care (01) ==
LOC: OPBI 14:34
PROVIDERS: PCP Internal Medicine; Referring Provider Internal Medicine; Visit Provider Internal Medicine
DX: Z12.31 Encounter for screening mammogram for malignant neoplasm of breast (principal)
CPT/HCPCS: 77063; 77067

== ENCOUNTER → 2025-04-08 | Outpatient (CLI) | payer OTHER, SELFPAY ==
--- NOTE | 2025-04-08 12:19 | US_ITS ---
PROCEDURE: THYROID 04/08/2025 REASON FOR EXAM: THYROID NODULES TECHNIQUE: Procedure Code: USTHY Modality: US Procedure: THYROID COMPARISON: Thyroid ultrasound, 07/05/2024 FINDINGS: Right thyroid lobe size: 6.8 x 3.8 x 3.0 cm (was 6.6 x 3.8 x 2.6 cm). -upper pole, 5.2 x 3.5 x 2.6 cm (was 5.0 x 3.6 x 2.5 cm), mixed cystic and solid with a smooth margin, TR 3. -lower pole, 1.2 x 1.1 x 1.0 cm (was 1.3 x 1.1 x 0.9 cm), mixed cystic and solid with a smooth margin, TR 3. Left thyroid lobe size: 5.0 x 2.0 x 1.4 cm (was 5.3 x 1.9 x 1.2 cm). -interpolar, 7 x 6 x 5 mm (was 6 x 6 x 5 mm), solid, homogeneous, with a smooth margin, TR 4. -additional nodules described previously average <5 mm in diameter and are cystic, requiring no further follow-up. Isthmus: 6 mm (was 5 mm). Background parenchymal echotexture is homogeneous. US/Thyroid IMPRESSION: Per TI rads guidelines, recommend FNA of the large TR 3 nodule in the right thy roid lobe. RECOMMENDATION: Based on most suspicious nodule. Nodule size = largest diameter Only evaluate nodule if =>5 mm. Growth > 20% in 2 dimensions = worsening. Follow up to 4 nodules. Recommend biopsy for no more than 2 nodules. Reading Location: [id number]
== END | disposition home or self-care (01) ==
PROVIDERS: PCP Internal Medicine; Referring Provider Surgery; Visit Provider Surgery
DX: E04.2 Nontoxic multinodular goiter (principal)
CPT/HCPCS: 76536

== ENCOUNTER → 2025-04-19 | Outpatient (CLI) | payer OTHER, SELFPAY ==
--- NOTE | 2025-04-19 12:45 | BI_ITS ---
EXAM: DIAG MAMM W/CAD, UNILAT; RT BRST UNILAT ABHISHEK ADD-ON; BREAST LIMITED UNILATERAL 04/19/2025 CLINICAL HISTORY: F, Age 40 y/o , BREAST PAIN; RT BREAST PAIN TECHNIQUE: Procedure Code: [id number]; BIRTUNITOMO; USBRSTLIMIT Modality: MG; US Procedure: DIAG MAMM W/CAD, UNILAT; RT BRST UNILAT ABHISHEK ADD-ON; BREAST LIMITED UNILATERAL. COMPARISON: Prior exam(s) dated 11/02/2024, 08/22/2023, 08/18/2023. FINDINGS: Mammogram: TISSUE DENSITY: There are scattered areas of fibroglandular density. Unilateral Right Breast Mammographic Findings: The patient presents with right breast pain, there are no suspicious mammographic findings in the area of patient's reported pain in the upper inner right breast. Otherwise, there are no suspicious findings in the right breast. Ultrasound: Ultrasound performed of the area of patient's reported pain in the upper inner quadrant of the right breast demonstrates no suspicious sonographic findings. There are no suspicious solid masses or abnormal cystic elements. BI/Rt Brst Unilat Abhishek Add-On IMPRESSION: There are no suspicious mammographic or sonographic findings in the area of pat ient's reported pain in the right breast. Clinical management is recommended for the pain. There is no evidence of malignancy in the right breast. OVERALL FINAL ASSESSMENT BI-RADS 1: NEGATIVE RECOMMENDATION: Routine annual follow-up in 1 Year Additional Recommendation none A letter with findings and recommendations will be mailed to the patient. Reading Location: [id number]
--- NOTE | 2025-04-19 13:00 | BI_ITS ---
EXAM: DIAG MAMM W/CAD, UNILAT; RT BRST UNILAT ABHISHEK ADD-ON; BREAST LIMITED UNILATERAL 04/19/2025 CLINICAL HISTORY: F, Age 40 y/o , BREAST PAIN; RT BREAST PAIN TECHNIQUE: Procedure Code: [id number]; BIRTUNITOMO; USBRSTLIMIT Modality: MG; US Procedure: DIAG MAMM W/CAD, UNILAT; RT BRST UNILAT ABHISHEK ADD-ON; BREAST LIMITED UNILATERAL. COMPARISON: Prior exam(s) dated 11/02/2024, 08/22/2023, 08/18/2023. FINDINGS: Mammogram: TISSUE DENSITY: There are scattered areas of fibroglandular density. Unilateral Right Breast Mammographic Findings: The patient presents with right breast pain, there are no suspicious mammographic findings in the area of patient's reported pain in the upper inner right breast. Otherwise, there are no suspicious findings in the right breast. Ultrasound: Ultrasound performed of the area of patient's reported pain in the upper inner quadrant of the right breast demonstrates no suspicious sonographic findings. There are no suspicious solid masses or abnormal cystic elements. BI/DIAG MAMM W/CAD, UNILAT IMPRESSION: There are no suspicious mammographic or sonographic findings in the area of pat ient's reported pain in the right breast. Clinical management is recommended for the pain. There is no evidence of malignancy in the right breast. OVERALL FINAL ASSESSMENT BI-RADS 1: NEGATIVE RECOMMENDATION: Routine annual follow-up in 1 Year Additional Recommendation none A letter with findings and recommendations will be mailed to the patient. Reading Location: [id number]
== END | disposition home or self-care (01) ==
PROVIDERS: PCP Internal Medicine; Referring Provider Obstetrics & Gynecology; Visit Provider Obstetrics & Gynecology
DX: N64.4 Mastodynia (principal)
CPT/HCPCS: 76642; 77061; 77065; G0279